=== PATIENT | female | born 1950 | race Caucasian/White ===

== ENCOUNTER → 2016-10-26 | Outpatient (CLI) | payer OTHER ==
--- NOTE | 2016-10-26 14:03 | MM ---
Reason for exam: follow-up at short interval from prior study. Last mammogram was performed 6 months ago. History: Patient is postmenopausal. Took hormonal contraceptives for 5 years beginning at age 22. Physical Findings: Nurse did not find any significant physical abnormalities on exam. MG Diagnostic Mammo LT w CAD CC, MLO, and ML view(s) were taken of the left breast. Prior study comparison: April 28, 2016, left breast US breast workup limited LT. April 21, 2016, bilateral MG 3d screening mammo w/cad. March 31, 2015, bilateral MG screening mammo w CAD. The breast tissue is extremely dense which could obscure a lesion on mammography. The asymmetric density superiorly and posteriorly is unchanged from 04/22/16. Not seen currently on the CC view. Additional 6 month follow up recommended. These results were verbally communicated with the patient and result sheet given to the patient on 10/26/16. ASSESSMENT: Probably benign, BI-RAD 3 RECOMMENDATION: Follow-up diagnostic mammogram of both breasts in 6 months.
== END | disposition home or self-care (01) ==
LOC: RADMAMWWP 13:03
PROVIDERS: ATTEND Family Medicine
DX: R92.8 Other abnormal and inconclusive findings on diagnostic imaging of breast (principal)

== ENCOUNTER → 2016-11-24 | Outpatient (CLI) | payer OTHER ==
--- NOTE | 2016-11-24 12:31 | XR ---
EXAMINATION TYPE: XR chest 2V DATE OF EXAM: 11/24/2016 12:17 PM COMPARISON: September 28, 2013 HISTORY: Shortness of breath TECHNIQUE: Frontal and lateral views of the chest are obtained. FINDINGS: Scattered senescent parenchymal changes noted. Hyperinflation compatible with COPD. No evidence for infiltrate. No evidence for atelectasis. Heart size is stable. Mediastinal structures are stable and grossly unremarkable. No evidence for hilar prominence. Degenerative changes dorsal spine. IMPRESSION: 1. No evidence for acute pulmonary disease.
== END ==
LOC: RADXRMAIN 11:55
DX: R63.4 Abnormal weight loss (principal); Z72.0 Tobacco use
CPT/HCPCS: 71020

== ENCOUNTER → 2017-04-05 | Outpatient (CLI) | payer MEDICARE, OTHER ==
[2017-04-05 15:03] LABS: Blood Urea Nitrogen 13 mg/dL (7-17); Non-African American GFR(MDRD) 50 (>60 ml/min/1.73 sqM)
--- NOTE | 2017-04-05 16:59 | CT ---
EXAMINATION TYPE: CT ChestAbdPelvis w con DATE OF EXAM: 04/05/2017 COMPARISON: Ultrasound 07/02/2015 HISTORY: 67-year-old female complains of abnormal weight loss. TECHNIQUE: Contiguous axial scanning of the chest, abdomen, and pelvis performed with IV Contrast, pa tient injected with 80 mL of Visipaque 320. Delayed images through the kidneys were obtained. Coronal /sagittal reconstructions performed. CT DLP: 1392 mGycm Automated exposure control for dose reduction was used. FINDINGS: CHEST: Calcified 7 mm nodule in the right lobe of the thyroid gland. Heart is normal size with trace pericardial thickening/fluid. Coronary vessel calcifications are pres ent in remarkable for coronary artery disease. Aorta is normal caliber with conventional arch vessel branching anatomy and mild atherosclerotic arch calcifications. There appears to be prominent atelectatic change in the proximal left subclavian art leandra and a severe stenosis here is not excluded. Borderline sized AP window lymph node at 1 cm. Some interstitial scarring in the anterior lung bases. Mild centrilobular emphysema again other scatt ered interstitial scarring in the lungs possibly with some segmental upper lung predominant centrilob ular nodules. No consolidation or pleural effusion. ABDOMEN: Incidental right-sided fatty Bochdalek hernia. Evaluation of the liver shows a subtle 1.6 cm hypodense lesion posterior left hepatic lobe that persi sts on delayed phase. Portal venous system is patent. No biliary ductal dilatation. There appears to be some circumferential wall thickening of the second portion of the duodenum, axial image 76 and cor onal image 30. Adrenal glands and right kidney, spleen, and pancreas show no gross body. There is a 1 cm cyst in the upper pole left kidney. Moderate atherosclerotic calcifications within the abdominal aorta and iliac arteries. No dilated small bowel, free fluid, or free air seen. Moderate stool burden without pericolonic inflammatory change identified Pelvis: Mild circumferential bladder wall thickening. Uterus appears surgically absent. Neither ovary is wade rly identified. No abnormal fluid collection in the pelvis or pelvic lymphadenopathy seen. Bones: Mild degenerative changes at the hips. Additional degenerative changes lower lumbar spine. No osseous destructive process. Multilevel spondylolistheses in the lumbar spine with moderate spinal canal ricardo nosis at L4-L5. IMPRESSION: 1. 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 2. SOME CIRCUMFERENTIAL WALL THICKENING OF THE SECOND PORTION OF THE DUODENUM COULD BE SECONDARY TO M UCOSAL REDUNDANCY. DUODENITIS OR NEOPLASM ARE ADDITIONAL CONSIDERATIONS. CONSIDER DIRECT VISUALIZATIO N OR 3 MONTH FOLLOW-UP EXAM DEPENDING ON CLINICAL ASSESSMENT. 3. A SUBTLE 1.6 CM HYPODENSE LESION IN THE POSTERIOR LEFT LIVER LOBE SEEMS TO CORRESPOND TO AN ECHOGE MADHU LESION SEEN ON 07/02/2015 ULTRASOUND. STABILITY SUGGESTS A BENIGN ETIOLOGY. THREE-MONTH FOLLOW-UP ULTRASOUND RECOMMENDED TO REASSESS. 4. MODERATE STOOL BURDEN. 5. MILD CIRCUMFERENTIAL BLADDER WALL THICKENING; CORRELATE TO EXCLUDE CYSTITIS. 6. AT LEAST MODERATE DEGENERATIVE CHANGES IN THE LUMBAR SPINE.
== END | disposition home or self-care (01) ==
LOC: RADCTMAIN 14:10
PROVIDERS: ATTEND Internal Medicine
DX: J43.2 Centrilobular emphysema (principal); J98.4 Other disorders of lung; R63.4 Abnormal weight loss
CPT/HCPCS: 82565; 84520; 71260; 74177; 36415; Q9967

== ENCOUNTER → 2017-04-14 | Outpatient (CLI) | payer MEDICARE ==
--- NOTE | 2017-04-14 15:34 | US ---
EXAMINATION TYPE: US carotid duplex BILAT DATE OF EXAM: 04/14/2017 COMPARISON: CT chest/abd/pelvis 2016 CLINICAL HISTORY: I77.1 Arterial stenosis; patient stated has weight loss; smoker x 45-50 years EXAM MEASUREMENTS: RIGHT: Peak Systolic Velocity (PSV) cm/sec ----- Right CCA: 72.8 ----- Right ICA: 87.3 ----- Right ECA: 70.5 ICA/CCA ratio: 1.2 RIGHT: End Diastole cm/sec ----- Right CCA: 26.0 ----- Right ICA: 37.0 ----- Right ECA: 11.4 LEFT: Peak Systolic Velocity (PSV) cm/sec ----- Left CCA: 57.9 ----- Left ICA: 108.1 ----- Left ECA: 65.2 ICA/CCA ratio: 1.9 LEFT: End Diastole cm/sec ----- Left CCA: 22.7 ----- Left ICA: 41.2 ----- Left ECA: 14.7 VERTEBRALS (direction of flow): Right Vertebral: Antegrade Left Vertebral: Antegrade Rhythm: Normal Moderate intimal wall changes/calcifications are noted at bilateral carotid bifurcation, but PSV is w nl bilaterally. Incidental finding of calcified right thyroid nodule is noted = 0.6 x 0.7 x 0.6cm. IMPRESSION: 1. Intimal thickening with scattered atheromatous plaques without significant flow-limiting stenosis. Criteria for Assigning % of Stenosis / Diameter reduction (Estimation based on the indirect measurements of the internal carotid artery velocities (ICA PSV). 1. Normal (no stenosis)=ICA PSV < 125 cm/s: ratio < 2.0: ICA EDV<40 cm/s. 2. Less than 50% stenosis=ICA PSV < 125 cm/s: ratio < 2.0: ICA EDV<40 cm/s. 3. 50 to 69% stenosis=ICA PSV of 125 to 230 cm/s: ration 2.0 ? 4.0: ICA EDV 40-100 cm/s. 4. Greater than 70% stenosis to near occlusion= ICA PSV > 230 cm/s: ratio > 4.0: ICA EDV > 100 cm/s. 5. Near occlusion= ICA PSV velocities may be low or undetectable: variable ratio and ICA EDV. 6. Total occlusion=unable to detect flow.
== END | disposition home or self-care (01) ==
LOC: RADUSWWP 10:55
PROVIDERS: ATTEND Family Medicine
DX: I77.89 Other specified disorders of arteries and arterioles (principal)
CPT/HCPCS: 93880

== ENCOUNTER → 2017-04-24 | Outpatient (CLI) | payer MEDICARE ==
--- NOTE | 2017-04-24 10:27 | MM ---
Reason for exam: follow-up at short interval from prior study. Last mammogram was performed 6 months ago. History: Patient is postmenopausal. Took hormonal contraceptives for 5 years beginning at age 22. Physical Findings: Nurse did not find any significant physical abnormalities on exam. MG 3D Diag Mammo W/Cad SHANICE Bilateral CC and MLO view(s) were taken. Prior study comparison: October 26, 2016, left breast MG diagnostic mammo LT w CAD. April 21, 2016, bilateral MG 3d screening mammo w/cad. The breast tissue is extremely dense which could obscure a lesion on mammography. There is no discrete abnormality. These results were verbally communicated with the patient and result sheet given to the patient on 04/24/17. ASSESSMENT: Negative, BI-RAD 1 RECOMMENDATION: Routine screening mammogram of both breasts in 1 year.
== END | disposition home or self-care (01) ==
LOC: RADMAMWWP 09:27
PROVIDERS: ATTEND Family Medicine
DX: R92.8 Other abnormal and inconclusive findings on diagnostic imaging of breast (principal)
CPT/HCPCS: G0204; G0279

== ENCOUNTER 2017-04-25 09:28 | Day surgery (SDC) | payer MEDICARE ==
[2017-04-21 09:40] VITALS: BMI 18.2
[2017-04-25 09:58] VITALS: TEMP 98.7
[2017-04-25] MEDS: LACTATED RINGERS 1,000 ML IV SCH ×2 (10:06→10:12)
[2017-04-25] MEDS ORDERED: PROPOFOL 10 MG/ML 20 ML VIAL IV ONE (10:15)
--- NOTE | 2017-04-25 10:52 | P.PCN ---
Date of Procedure: 04/25/17 Procedure(s) Performed: Procedure: Esophagogastroduodenoscopy and biopsy. Preoperative diagnosis: Abnormal weight loss and abnormal CT of the abdomen. Postoperative diagnosis: 1. Small sliding hiatal hernia with no obvious esophagitis or complicated reflux disease. 2. Mild antral gastritis. 3. Abnormality on CT and the duodenum was not substantiated on this exam and the duodenum showed no obvious abnormalities. 4. Multiple biopsies obtained from the duodenum, antrum and esophagus. Preparation and sedation: Were provided by anesthesia. Brief clinical history: The patient is a 67-year-old female who was evaluated in the office last month because of 30 pound weight loss over the past year. CT of the abdomen showed circumferential thickening of the second portion of the duodenum and direct visualization was suggested. Procedure: With the patient on her left lateral decubitus position and after informed consent and adequate sedation, I passed the Olympus-GIF 160 video upper endoscope through the cricopharyngeus down the esophagus. GE junction was around 40-41 cm from the incisors and there was a small sliding hiatal hernia measuring between 1-2 cm. The esophagus did not show any obvious erosions, ulcers, strictures or Sierra's esophagus. The endoscope was then passed into the stomach which was insufflated with air and inspected in detail including the retroflex view of the cardia. There was some mottling and erythema in the antrum but no ulcers or erosions. Pyloric channel, duodenal bulb, post bulbar area and descending duodenum appeared within normal limits. The abnormality noted on computed tomography scan was not substantiated on this exam and the duodenum appeared within normal limits. Because of her symptoms, I obtained biopsies from the duodenum, antrum and esophagus then the endoscope was withdrawn. The patient tolerated the procedure well. Plan: The patient was reassured. Will await biopsy results. Further plans can be made based on her course and biopsy results. She will follow-up with you as planned and we would keep you updated on her progress.
[2017-04-25 10:56] VITALS: BP 133/78; PULSE 66; RESP 18
== END 2017-04-25 11:38 | disposition home or self-care (01) ==
LOC: ORWHC2ENDO 09:28
DX: K29.50 Unspecified chronic gastritis without bleeding (principal); K20.9 Esophagitis, unspecified; K44.9 Diaphragmatic hernia without obstruction or gangrene; K57.90 Diverticulosis of intestine, part unspecified, without perforation or abscess without bleeding; I10 Essential (primary) hypertension; E78.5 Hyperlipidemia, unspecified; J44.9 Chronic obstructive pulmonary disease, unspecified; F17.200 Nicotine dependence, unspecified, uncomplicated; M41.9 Scoliosis, unspecified; Z79.899 Other long term (current) drug therapy; Z88.7 Allergy status to serum and vaccine
CPT/HCPCS: 88305; 88342; 43239; J2704

== ENCOUNTER → 2017-08-10 | Outpatient (CLI) | payer MEDICARE ==
--- NOTE | 2017-08-10 15:11 | US ---
EXAMINATION TYPE: US thyroid st tissue head/neck DATE OF EXAM: 08/10/2017 COMPARISON: Carotid ultrasound 04/14/2017 CLINICAL HISTORY: 67-year-old female E04.1 THYROID NODULE. Right thyroid nodule seen on previous ultr asound and CT TECHNIQUE: Multiple sonographic images of the thyroid gland are obtained. FINDINGS: GLAND SIZE: Right Lobe: 3.8 x 1.5 x 1.5 cm Overall Parenchyma: homogenous Left Lobe: 4.2 x 1.4 x 1.5 cm Overall Parenchyma: homogeneous Isthmus Thickness: 0.2 cm NODULES RIGHT: # of nodules measured on right: 1 1. 0.6 X 0.6 x 0.6 cm round calcified nodule at the midpole. Prior size: 0.6 x 0.7 x 0.6 cm by previous carotid ultrasound LEFT: # of nodules measured on left: 0 ISTHMUS: # of nodules measured in the isthmus: 0 Bilateral neck scanned, no evidence of lymphadenopathy. IMPRESSION: Stable solitary round, calcified nodule at the right midpole measuring 6 mm.
--- NOTE | 2017-08-10 15:32 | US ---
EXAMINATION TYPE: US abdomen comp/pelvis limited DATE OF EXAM: 08/10/2017 COMPARISON: CT 04/05/2017 and ultrasound 07/02/2015 CLINICAL HISTORY: 67-year-old female K78.9,R79.89 LIVER NODULES,ELEV CREAT LEVELS. Weight loss, eleva kalani creatinine levels, history of liver lesions, cholecystectomy TECHNIQUE: Multiple sonographic images of the abdomen and bladder are obtained. FINDINGS: Liver Length: 15.5 cm Gallbladder: surgically absent CBD: 0.7 cm Spleen: 8.7 cm Right Kidney: 10.5 x 4.2 x 5.1 cm Left Kidney: 10.0 x 5.3 x 4.8 cm Pancreas: visualized portions wnl, tail obscured by overlying midline bowel gas Liver: 2.2 x 1.9 x 1.9 cm hyperechoic lesion left lobe (versus 2.0 x 1.8 x 1.4 cm on 07/02/2015), 0. 8 x 0.8 x 0.9cm hyperechoic lesion right lobe (versus 7 x 8 x 8 mm on 07/02/2015) Gallbladder: surgically absent CBD: wnl Spleen: visualized portions wnl, limited by overlying bowel gas Right Kidney extrarenal pelvis. No calyceal dilatation to suggest hydronephrosis. Left Kidney: 1.6 x 1.1 x 1.1cm hypoechoic area superior pole. There is suggestion of some posterior through transmission. A cyst is suspected. Inferior pole limited by overlying bowel gas Upper IVC: wnl Abd Aorta: atherosclerotic change, distal portion limited by overlying midline bowel gas Bladder: wnl Bilateral Jets Seen yes IMPRESSION: A 1.6 cm hypoechoic lesion upper pole left kidney suspected to represent a cyst with internal echoes either artifactual or representing debris. However, as a cyst in the left upper pole only measured 1 cm on the 04/05/2017 CT, six-month follow-up ultrasound is recommended to reassess. 2 echogenic lesions redemonstrated in the liver. These have only enlarged by a few millimeters as com pared to 07/02/2015, largest measuring 2.2 cm. This suggests a benign etiology. As this did not have the characteristic appearance of a hemangioma on the prior CT, a 12 month follow-up ultrasound can de termine continued stability. Alternatively, liver MRI may provide more definitive characterization. Extensive atherosclerotic calcifications within the abdominal aorta.
== END | disposition home or self-care (01) ==
LOC: RADUSWWP 14:04
PROVIDERS: ATTEND Family Medicine
DX: E04.1 Nontoxic single thyroid nodule (principal); N28.9 Disorder of kidney and ureter, unspecified; K76.9 Liver disease, unspecified; I70.0 Atherosclerosis of aorta
CPT/HCPCS: 76536; 76700; 76857

== ENCOUNTER → 2018-02-19 | Outpatient (CLI) | payer MEDICARE ==
--- NOTE | 2018-02-20 10:09 | CT ---
EXAMINATION TYPE: CT abdomen wo/w con DATE OF EXAM: 02/19/2018 HISTORY: Patient complains of RUQ pain CT DLP: 393.6mGycm Automated Exposure Control for Dose Reduction was Utilized. CONTRAST: CT scan of the abdomen is performed without and with IV Contrast, patient injected with 80 mL of Isov ue 370. COMPARISON: None. FINDINGS: LUNG BASES: Mild emphysematous changes are again appreciated at the lung bases. No new focal consolid ation. LIVER/GB:. There is a gallbladder solitary approximately 1.4 cm left hepatic lobe lesion is seen in t he prior of 04/05/2017. This measured approximately 1.6 cm on that examination. This is unchanged give n differences in slice selection. Given its unchanged in size and hyperechogenicity on ultrasound a b enign etiology is favored however continued surveillance is recommended. The gallbladder is surgicall y absent. There is very minimal intrahepatic biliary ductal dilatation, possibly postsurgical as this was retrospectively minimally present on the prior exam of 04/05/2017. PANCREAS: There is no pancreatic ductal dilatation. Pancreas enhances homogeneously. SPLEEN: A small splenule is seen adjacent to the unremarkable iroquois spleen. ADRENALS: There is slight bilateral thickening of the adrenal glands however they maintain their adre niform shape and are similar to the prior, likely related to mild adrenal gland hyperplasia. KIDNEYS: The unenhanced images demonstrate no evidence of nephrolithiasis. There is a similar appeari ng left upper poler 9 mm lesion, probable cortical cyst. There is also similar appearance of a right lateral cortical 6 mm too small to accurately characterize renal lesion. Given the stability this als o likely relates to a cyst. No hydronephrosis. Left extrarenal pelvis is again identified. BOWEL: The previously seen circumferential bowel wall thickening of the duodenum resolved in the inte rim. No large or small bowel dilatation. LYMPH NODES: No greater than 1cm abdominal or pelvic lymph nodes are appreciated. OSSEOUS STRUCTURES: Osseous structures appear intact minimal degenerative changes of the spine are no kalani with more pronounced degenerative change and L2-L3. Mild retrolisthesis of L2 on L3 and grade 1 a nterolisthesis of L4 on L5 are seen. OTHER: Moderate calcific atheromatous changes are seen of the abdominal aorta and its branches. Mild subcutaneous edema is noted throughout. IMPRESSION: 1. Solitary hepatic lesion seen on the prior CT of 04/05/2017 is overall stable and favored to be angelica gn in etiology. This was hyperechoic on the prior ultrasound dated 07/02/2015 and 08/10/2017. If there is further desire for more definitive characterization enhanced abdominal MR could be performed. The known second hepatic lesion seen on ultrasound is not readily visible on CT, therefore this may rela te to focal nodular hyperplasia. 2. Very minimal intrahepatic biliary ductal dilatation, possibly postsurgical and overall similar to the prior exam of 2017. 3. Resolution of the previously seen circumferential descending duodenal thickening. Moderate colonic stool burden remains.
== END | disposition home or self-care (01) ==
LOC: RADCTMAIN 15:02
DX: K76.9 Liver disease, unspecified (principal)
CPT/HCPCS: 82565; 84520; 74170; 36415; Q9967

== ENCOUNTER → 2018-05-23 | Outpatient (CLI) | payer MEDICARE ==
--- NOTE | 2018-05-23 09:04 | US ---
EXAMINATION TYPE: US thyroid st tissue head/neck DATE OF EXAM: 05/23/2018 COMPARISON: US 08/10/2017 CLINICAL HISTORY: R22.1 Swelling/Mass Lump of neck. No abnormality visualized at the patient's area of palpable lump IMPRESSION: No distinct abnormality seen. Correlate clinically.
== END ==
LOC: RADUSWWP 08:16
PROVIDERS: ATTEND Family Medicine
DX: R22.1 Localized swelling, mass and lump, neck (principal)
CPT/HCPCS: 76536

== ENCOUNTER → 2018-06-25 | Outpatient (CLI) | payer MEDICARE ==
--- NOTE | 2018-06-26 13:14 | MM ---
Reason for exam: screening (asymptomatic). Last mammogram was performed 1 year and 2 months ago. History: Patient is postmenopausal. Took hormonal contraceptives for 5 years beginning at age 22. Physical Findings: A clinical breast exam by your physician is recommended on an annual basis and results should be correlated with mammographic findings. MG 3D Screening Mammo W/Cad Bilateral CC and MLO view(s) were taken. Prior study comparison: April 24, 2017, bilateral MG 3d diag mammo w/cad SHANICE. October 26, 2016, left breast MG diagnostic mammo LT w CAD. The breast tissue is heterogeneously dense. This may lower the sensitivity of mammography. No significant changes when compared with prior studies. ASSESSMENT: Benign, BI-RAD 2 RECOMMENDATION: Routine screening mammogram of both breasts in 1 year.
== END ==
LOC: RADMAMWWP 14:47
PROVIDERS: ATTEND Family Medicine
DX: Z12.31 Encounter for screening mammogram for malignant neoplasm of breast (principal)
CPT/HCPCS: 77063; 77067

== ENCOUNTER → 2018-06-27 | Outpatient (CLI) | payer MEDICARE ==
--- NOTE | 2018-06-27 10:16 | US ---
EXAMINATION TYPE: US carotid duplex BILAT DATE OF EXAM: 06/27/2018 COMPARISON: US 04/14/17 CLINICAL HISTORY: I65.22 stenosis of left carotid. Patient feels lump on left neck. EXAM MEASUREMENTS: RIGHT: Peak Systolic Velocity (PSV) cm/sec ----- Right CCA: 100.5 ----- Right ICA: 133.5 ----- Right ECA: 131.9 ICA/CCA ratio: 1.3 RIGHT: End Diastole cm/sec ----- Right CCA: 36.1 ----- Right ICA: 49.5 ----- Right ECA: 26.8 LEFT: Peak Systolic Velocity (PSV) cm/sec ----- Left CCA: 104.4 ----- Left ICA: 135.3 ----- Left ECA: 96.4 ICA/CCA ratio: 1.3 LEFT: End Diastole cm/sec ----- Left CCA: 39.8 ----- Left ICA: 50.5 ----- Left ECA: 25.2 VERTEBRALS (direction of flow): Right Vertebral: Antegrade Left Vertebral: Antegrade Rhythm: Normal IMPRESSION: Atherosclerotic changes noted. Calcified plaque bilat bulb, L>R No significant stenosis s een Criteria for Assigning % of Stenosis / Diameter reduction (Estimation based on the indirect measurements of the internal carotid artery velocities (ICA PSV). 1. Normal (no stenosis)=ICA PSV < 125 cm/s: ratio < 2.0: ICA EDV<40 cm/s. 2. Less than 50% stenosis=ICA PSV < 125 cm/s: ratio < 2.0: ICA EDV<40 cm/s. 3. 50 to 69% stenosis=ICA PSV of 125 to 230 cm/s: ration 2.0 ? 4.0: ICA EDV 40-100 cm/s. 4. Greater than 70% stenosis to near occlusion= ICA PSV > 230 cm/s: ratio > 4.0: ICA EDV > 100 cm/s. 5. Near occlusion= ICA PSV velocities may be low or undetectable: variable ratio and ICA EDV. 6. Total occlusion=unable to detect flow.
--- NOTE | 2018-06-27 10:38 | CT ---
EXAMINATION TYPE: CT soft tissue neck w con DATE OF EXAM: 06/27/2018 COMPARISON: None HISTORY: 68-year-old female localized soft tissue swelling, lump along the left side of the neck TECHNIQUE: Contiguous axial scanning of the soft tissues of the neck performed with IV Contrast, irving ent injected with 80 mL of Isovue M300. Coronal/sagittal reconstructions performed. CT DLP: 299.1 mGycm Automated exposure control for dose reduction was used. FINDINGS: Mildly enlarged mediastinal lymph nodes measuring up to 1.2 cm in the AP window. There is a severe stenosis of the proximal left subclavian artery, reference axial image 26. Round peripherally calcified 6 mm nodule in the right lobe of the thyroid gland. Visualized intracranial structures, orbits and globes, paranasal sinuses, and mastoid air cells appea r clear. There is a cystic lesion along the right paramedian posterior nasopharynx mucosal space measuring 6 m m suggestive of a mucosal retention cyst, axial image 78. Oropharynx is clear. Slight asymmetric thickening along the left aryepiglottic fold suspected to be positional. Refer to a xial image 52. Glottic and subglottic structures as well as the tracheal column appear clear. Visualized upper lungs show subtle centrilobular nodularity and mild diffuse bronchial wall thickenin g. Findings may reflect respiratory bronchiolitis if the patient is a smoker. Submandibular glands is satisfactory. Parotid glands mildly atrophic. There is a palpable marker along the left lateral neck. Directly underlying the palpable marker in th e left external jugular vein coursing over the sternocleidomastoid. Scattered nonenlarged cervical lymph nodes are present measuring up to 8 mm short axis. No suspicious mass or lymphadenopathy identified. Moderate atherosclerotic calcifications in the left bifurcation and mild at the right bifurcation wit hout a significant stenosis seen. Bones: Mild/moderate spondylotic change mid to lower cervical spine with grade 1 anterolisthesis at C 5-C6. IMPRESSION: 1. PALPABLE MARKER ALONG THE LEFT LATERAL NECK. THE LEFT EXTERNAL JUGULAR VEIN IS PRESENT DIRECTLY UN ARIN THE PALPABLE MARKER COURSING OVER THE STERNOCLEIDOMASTOID MUSCLE. NO SUSPICIOUS MASS OR LYMPHADEN OPATHY IS SEEN HERE. 2. SLIGHT ASYMMETRIC NODULAR THICKENING ALONG THE LEFT ARYEPIGLOTTIC FOLD MAY BE POSITIONAL. CORRELAT E FOR ANY RISK FACTORS FOR HEAD AND NECK NEOPLASM. DIRECT VISUALIZATION INDICATED. 3. INCIDENTAL 6 MM MUCOSAL RETENTION CYST IN THE POSTERIOR RIGHT NASOPHARYNX. 4. SUBTLE CENTRILOBULAR NODULARITY IN THE VISUALIZED UPPER LUNGS. THIS MAY REFLECT RESPIRATORY BRONCH IOLITIS IF THE PATIENT IS A SMOKER. 5. SEVERE FOCAL STENOSIS PROXIMAL LEFT SUBCLAVIAN ARTERY. 6. MILDLY ENLARGED AP WINDOW LYMPH NODE MEASURES 1.2 CM. RECOMMEND FOLLOW-UP CONTRAST ENHANCED CT [facility] TO SURVEY THE LUNGS AND MEDIASTINUM.
== END ==
LOC: RADUSMAIN 09:00
PROVIDERS: ATTEND Internal Medicine
DX: I65.22 Occlusion and stenosis of left carotid artery (principal); R22.1 Localized swelling, mass and lump, neck
CPT/HCPCS: 82565; 84520; 93880; 70491; 36415; Q9967

== ENCOUNTER → 2019-02-07 | Outpatient (CLI) | payer MEDICARE ==
[2019-02-07 18:56] LABS: T4, Free (Free Thyroxine) 1.1 ng/dL (0.80-1.80)
== END | disposition home or self-care (01) ==
LOC: LABWHC1 11:44
PROVIDERS: ATTEND Internal Medicine Interventional Cardiology
DX: E03.9 Hypothyroidism, unspecified (principal)
CPT/HCPCS: 36415; 84439; 84443; 84481

== ENCOUNTER 2019-06-25 16:44 | Emergency (ER) | payer MEDICARE ==
[2019-06-25 16:48] VITALS: RESP 18
[2019-06-25 16:57] VITALS: TEMP 97.3
[2019-06-25] MEDS ORDERED: IPRATROPIUM-ALBUTEROL 3 ML NEB INHALATION STA (17:06)
[2019-06-25] MEDS ORDERED: predniSONE 50 MG TAB PO STA (17:07)
--- NOTE | 2019-06-25 17:09 | ED ---
General Adult HPI - General Chief complaint: Shortness of Breath Stated complaint: chest congestion Time Seen by Provider: 06/25/19 16:45 Source: patient, RN notes reviewed, old records reviewed Mode of arrival: ambulatory Limitations: no limitations - History of Present Illness Initial comments: This is a 69-year-old female who has a past medical history significant for COPD and she continues to smoke. Patient states on night she started developing a cough and the cough is persistent and continues today. Patient states she is also coughing up a lot of green junk. Patient states she's also been short of breath more than normal since that time per patient denies any chest pain or palpitations. Patient denies any fever chills. Patient states she takes her DuoNeb at home and it improves her symptoms for a little while and then they returned. Patient denies any abdominal pain. Patient denies any lightheadedness or dizziness. Patient denies any swelling to the legs patient denies any calf tenderness. Patient states currently in bed she feels pretty good but if she gets up and moves around she feels like she is wheezing. - Related Data Home Medications Medication Instructions Recorded Confirmed Cholecalciferol [Vitamin D3] 5,000 unit PO DAILY 08/06/15 04/25/17 Ipratropium Nebulized [Atrovent 0.5 mg INHALATION Q6HR 08/06/15 04/25/17 Nebulized] Losartan [Cozaar] 12.5 mg PO QAM 08/06/15 04/25/17 Pyridoxine [Vitamin B-6] 100 mg PO HS 08/06/15 04/25/17 Verapamil HCl [Verapamil ER] 240 mg PO HS 08/06/15 04/25/17 Acetaminophen [Tylenol Extra 500 mg PO DIRECTED PRN 04/21/17 04/25/17 Strength] Albuterol Inhaler [Ventolin Hfa 1 puff INHALATION Q6HR PRN 04/21/17 04/25/17 Inhaler] Cyanocobalamin [Vitamin B-12] 500 mcg PO DAILY 04/21/17 04/25/17 Ezetimibe [Zetia] 10 mg PO HS 04/21/17 04/25/17 Famotidine [Pepcid] 20 mg PO BID 04/21/17 04/25/17 Ibuprofen [Motrin] 200 - 400 mg PO Q6HR PRN 04/21/17 04/25/17 Magnesium Oxide 400 mg PO HS 04/21/17 04/25/17 Previous Rx's Medication Instructions Recorded Azithromycin [Zithromax Tri-Rk] 500 mg PO DAILY #3 tab 06/25/19 predniSONE 40 mg PO DAILY #8 tab 06/25/19 Allergies Allergy/AdvReac Type Severity Reaction Status Date / Time thimerosal Allergy Abdominal Verified 06/25/19 16:48 Pain,fever,itchy & draining eyes Review of Systems ROS Statement: Those systems with pertinent positive or pertinent negative responses have been documented in the HPI. ROS Other: All systems not noted in ROS Statement are negative. Past Medical History Past Medical History: COPD, Eye Disorder, Hypertension Additional Past Medical History / Comment(s): DAILY DIARRHEA, HX IRREG HR, SHANICE CATARACTS,SEPTIC WITH GALL BLADDER, PLEURAL EFFUSION,ENLARGED LIVER,KIDNEY INFECTION,ARTI [place] History of Any Multi-Drug Resistant Organisms: None Reported Past Surgical History: Appendectomy, Cholecystectomy, Hysterectomy, Orthopedic Surgery, Tonsillectomy Additional Past Surgical History / Comment(s): COLONOSCOPY Past Anesthesia/Blood Transfusion Reactions: Motion Sickness Additional Past Anesthesia/Blood Transfusion Reaction / Comment(s): NO PROBLEMS WITH PRIOR BLOOD TRANSFUSION Past Psychological History: No Psychological Hx Reported Smoking Status: Current every day smoker Past Alcohol Use History: None Reported Past Drug Use History: None Reported - Past Family History Mother Family Medical History: Dementia, Vascular Disorder Father Family Medical History: Hypertension Additional Family Medical History / Comment(s): PARKINSON,GOUT Sister(s) Family Medical History: Asthma, COPD Additional Family Medical History / Comment(s): BRAIN TUMOR,EMPHYSEMA,MS Brother(s) Family Medical History: COPD, Hypertension Additional Family Medical History / Comment(s): BROOKLYNN SALEEM General Exam - General Exam Comments Initial Comments: GENERAL: Patient is well-developed and well-nourished. Patient is nontoxic and well- hydrated and is in mild distress. ENT: Neck is soft and supple. No significant lymphadenopathy is noted. Oropharynx is clear. Moist mucous membranes. Neck has full range of motion without eliciting any pain. EYES: The sclera were anicteric and conjunctiva were pink and moist. Extraocular movements were intact and pupils were equal round and reactive to light. Eyelids were unremarkable. PULMONARY: Patient has occasional expiratory wheezes. CARDIOVASCULAR: There is a regular rate and rhythm without any murmurs gallops or rubs. ABDOMEN: Soft and nontender with normal bowel sounds. No palpable organomegaly was noted. There is no palpable pulsatile mass. SKIN: Skin is clear with no lesions or rashes and otherwise unremarkable. NEUROLOGIC: Patient is alert and oriented x3. Cranial nerves II through XII are grossly intact. Motor and sensory are also intact. Normal speech, volume and content. Symmetrical smile. MUSCULOSKELETAL: Normal extremities with adequate strength and full range of motion. LYMPHATICS: No significant lymphadenopathy is noted PSYCHIATRIC: Normal psychiatric evaluation. Limitations: no limitations Course Vital Signs 06/25/19 06/25/19 06/25/19 16:45 16:55 17:31 Temperature 97.8 F 97.3 F L Pulse Rate 80 78 68 Respiratory 18 18 18 Rate Blood Pressure 132/68 148/71 O2 Sat by Pulse 99 98 Oximetry 06/25/19 06/25/19 17:40 18:00 Temperature Pulse Rate 70 77 Respiratory 18 18 Rate Blood Pressure 111/68 O2 Sat by Pulse 95 Oximetry Medical Decision Making - Medical Decision Making Chest x-ray shows no acute abnormality I started the patient on Rocephin in the emergency department and the patient will be sent home on Zithromax. Patient also be given steroids. After the patient got her breathing treatment I listened to her lungs and she sounded much better and she actually felt better. Disposition Clinical Impression: COPD exacerbation, Bronchitis Disposition: HOME SELF-CARE Instructions (If sedation given, give patient instructions): Acute Bronchitis (ED) Prescriptions: predniSONE 40 mg PO DAILY #8 tab Azithromycin [Zithromax Tri-Rk] 500 mg PO DAILY #3 tab Is patient prescribed a controlled substance at d/c from ED?: No Referrals: Carol Townsend MD [Primary Care Provider] - 1-2 days
--- NOTE | 2019-06-25 17:42 | XR ---
EXAMINATION TYPE: XR chest 2V DATE OF EXAM: 06/25/2019 COMPARISON: March 22, 2017 HISTORY: Cough TECHNIQUE: Frontal and lateral views of the chest are obtained. FINDINGS: Heart and mediastinum are normal. Lungs are clear of infiltrate. There is mild pulmonary h yperinflation. Thoracic aorta is atheromatous. There are no hilar masses. Bony thorax is intact. IMPRESSION: No active cardiopulmonary disease. There is probably some COPD. No significant change.
[2019-06-25 18:01] VITALS: BP 111/68; PULSE 77
[2019-06-25] MEDS ORDERED: cefTRIAXone 1,000 MG VIAL (IM USE) IM STA (18:16)
== END 2019-06-25 18:39 | disposition home or self-care (01) ==
LOC: EC 16:44
DX: J44.1 Chronic obstructive pulmonary disease with (acute) exacerbation (principal); J40 Bronchitis, not specified as acute or chronic; I10 Essential (primary) hypertension; F17.200 Nicotine dependence, unspecified, uncomplicated; Z79.51 Long term (current) use of inhaled steroids; Z79.899 Other long term (current) drug therapy; Z88.4 Allergy status to anesthetic agent; Z83.6 Family history of other diseases of the respiratory system
CPT/HCPCS: 71046; 94640; 96372; 99285

== ENCOUNTER → 2019-08-26 | Outpatient (CLI) | payer MEDICARE ==
[2019-08-26 20:59] LABS: African American GFR (CKD) 60.2 (60.0-200.0); Anion Gap 8.6 mmol/L (4.00-12.00); BUN/Creat Ratio 18.18 Ratio (12.00-20.00); Calcium 10.2 mg/dL (8.7-10.3); Carbon Dioxide 26.4 mmol/L (21.6-31.8); Magnesium 2.6 mg/dL (1.5-2.4); Non-African American GFR(CKD) 51.9 (60.0-200.0); Potassium 4.8 mmol/L (3.5-5.5)
== END | disposition home or self-care (01) ==
LOC: LABWHC1 12:09
PROVIDERS: ATTEND Nurse Practitioner
DX: I10 Essential (primary) hypertension (principal)
CPT/HCPCS: 36415; 80048; 83735

== ENCOUNTER → 2020-02-12 | Outpatient (CLI) | payer MEDICARE ==
--- NOTE | 2020-02-12 11:28 | FL ---
EXAMINATION TYPE: FL barium swallow w video DATE OF EXAM: 02/12/2020 MODIFIED SWALLOW / DEGLUTITION STUDY CLINICAL HISTORY: Dysphagia. TECHNIQUE: Deglutition study is performed utilizing thin liquid barium, honey and nectar thick liqui d barium, barium thick applesauce, and barium coated cracker. 1 minute and 7 seconds of fluoroscopy p rovided. No images submitted COMPARISON: None. FINDINGS: The oral and pharyngeal phases show satisfactory initiation and propagation with all modali ties tested. Mild delay in oral clearance. Normal mastication is seen with solid modalities tested. There is no evidence of penetration or aspiration with any modality tested. Mild vallecular pooling. Prominent cricopharyngeal muscle noted. IMPRESSION: 1. No evidence of aspiration or penetration.
== END | disposition home or self-care (01) ==
LOC: RADFLMAIN 10:46
PROVIDERS: ATTEND Otolaryngology
DX: R13.10 Dysphagia, unspecified (principal)
CPT/HCPCS: 74230

== ENCOUNTER → 2020-02-27 | Outpatient (CLI) | payer MEDICARE ==
--- NOTE | 2020-02-27 11:42 | FL ---
EXAMINATION TYPE: FL barium swallow DATE OF EXAM: 02/27/2020 CLINICAL HISTORY: Dysphagia. TECHNIQUE: A double contrast esophagram is performed utilizing air and barium. A total of 42 second s of fluoroscopic time was utilized during procedure. 39 spot images saved to PACS. COMPARISON: None FINDINGS: The esophagus shows some mild to moderate underlying dysmotility with some abnormal seconda ry tertiary contractions and poor emptying particularly when patient drank inlaying down prone positi on. No evidence of fixed hiatal hernia or stricture noted. There is reflux from the distal to proxim al and mid esophagus identified during performance of study. IMPRESSION: Mild to moderate underlying esophageal dysmotility and esophageal reflux.
== END | disposition home or self-care (01) ==
LOC: RADUSWWP 10:51
PROVIDERS: ATTEND Otolaryngology
DX: K21.9 Gastro-esophageal reflux disease without esophagitis (principal); K22.4 Dyskinesia of esophagus; Z88.8 Allergy status to other drugs, medicaments and biological substances; Z91.048 Other nonmedicinal substance allergy status
CPT/HCPCS: 74220

== ENCOUNTER → 2020-03-20 | Outpatient (CLI) | payer MEDICARE ==
[2020-03-20 20:09] LABS: African American GFR (CKD) 60.2 (60.0-200.0); Anion Gap 3.1 mmol/L (4.00-12.00); BUN/Creat Ratio 16.36 Ratio (12.00-20.00); Calcium 9.9 mg/dL (8.7-10.3); Carbon Dioxide 26.9 mmol/L (21.6-31.8); Magnesium 2.1 mg/dL (1.5-2.4); Non-African American GFR(CKD) 51.9 (60.0-200.0); Potassium 5.1 mmol/L (3.5-5.5)
== END | disposition home or self-care (01) ==
LOC: LABWHC1 11:23
PROVIDERS: ATTEND Nurse Practitioner
DX: I10 Essential (primary) hypertension (principal)
CPT/HCPCS: 36415; 80048; 83735

== ENCOUNTER 2020-04-13 07:49 | Day surgery (SDC) | payer MEDICARE ==
[2020-04-10 13:30] VITALS: BMI 20.5
[~2020-04-13 07:49] MED LIST: LACTATED RINGERS 1,000 ML IV SCH
[2020-04-13 08:21] VITALS: RESP 16; TEMP 97.7
[2020-04-13] MEDS ORDERED: LIDOCAINE 1% (10MG/ML) FOR IV START INTRADERMA ONE (08:37)
[2020-04-13] MEDS ORDERED: PROPOFOL 10 MG/ML 20 ML VIAL IV ONE (08:41)
--- NOTE | 2020-04-13 09:05 | P.PCN ---
Date of Procedure: 04/13/20 Description of Procedure: BRIEF HISTORY: Patient is a 70-year-old female presenting for outpatient EGD for evaluation of dysphagia. Patient was seen in the hospital complaining of intermittent dysphagia over the past 6 months. Both solids and liquids getting stuck in the midesophagus with regurgitation. She did have a laryngoscope which was negative and a barium swallow in February which demonstrated mild to moderate esophageal dysmotility and esophageal reflux. Patient was switched to PPI therapy daily, previously taking Pepcid which she felt helped. PROCEDURE PERFORMED: Esophagogastroduodenoscopy with biopsy. PREOPERATIVE DIAGNOSIS: Esophageal dysphagia, dysphagia, GERD. ESTIMATED BLOOD LOSS: Minimal. IV sedation per anesthesia. PROCEDURE: After informed consent was obtained, the patient was brought into the endoscopy unit. IV sedation was administered by Anesthesia under continuous monitoring. Initially the Olympus GIF-190 video endoscope was inserted into the mouth. Esophagus intubated without any difficulty. It was gradually advanced into the stomach and duodenum and carefully examined. The bulb and the second part of the duodenum appeared normal, with biopsies taken. The scope at this time was withdrawn to the stomach, adequately insufflated with air, and upon careful examination, mucosa of the antrum, body, cardia and the fundus appeared normal, except for some mild punctate erythema in the antrum and body suggestive of mild gastritis with biopsies taken. The scope was then withdrawn into the esophagus. The GE junction was located at 36 cm from the incisors, with biopsies taken. A 1 cm hiatal hernia was noted. Mid esophageal biopsies taken to rule out EOE. The esophagus appeared normal. There were no erosions or ulcerations seen and the patient tolerated the procedure well. IMPRESSION: 1. Mild gastritis. 2. Biopsies of the duodenum, antrum and body, GE junction and mid esophagus. RECOMMENDATIONS: The findings of this examination were discussed with the patient. Okay to resume diet. Okay to resume medication. Would recommend patient continue trial of omeprazole daily. Follow-up in GI clinic as scheduled.
[2020-04-13 09:10] VITALS: PULSE 67
[2020-04-13 09:21] VITALS: BP 127/67
== END 2020-04-13 09:47 | disposition home or self-care (01) ==
LOC: ORWHC2ENDO 07:49
PROVIDERS: ATTEND Internal Medicine
DX: K29.50 Unspecified chronic gastritis without bleeding (principal); K21.9 Gastro-esophageal reflux disease without esophagitis; I10 Essential (primary) hypertension; E78.5 Hyperlipidemia, unspecified; J44.9 Chronic obstructive pulmonary disease, unspecified; Z88.8 Allergy status to other drugs, medicaments and biological substances; Z79.82 Long term (current) use of aspirin; Z79.51 Long term (current) use of inhaled steroids; Z79.899 Other long term (current) drug therapy; Z90.710 Acquired absence of both cervix and uterus; Z90.49 Acquired absence of other specified parts of digestive tract; Z90.89 Acquired absence of other organs; Z98.890 Other specified postprocedural states
CPT/HCPCS: 88305; 43239; J2704

== ENCOUNTER 2020-05-05 11:29 | Inpatient (IN) | payer MEDICARE ==
[2020-05-05] MEDS ORDERED: SODIUM CHLORIDE 0.9% 1,000 ML IV STA (11:53)
[2020-05-05] MEDS ORDERED: ONDANSETRON 4 MG/2 ML VIAL IVP STA (12:05)
[2020-05-05] MEDS ORDERED: HYDROmorphone 0.5 MG/0.5 ML SYRINGE IVP STA (12:05)
[2020-05-05 12:10] LABS: Basophils # (A) 0.1 k/uL (0-0.2); Basophils % (A) 1 %; Eosinophils # (A) 0.2 k/uL (0-0.7); Eosinophils % (A) 2 %; HCT 48.1 % (34.0-46.0); HGB 15.5 gm/dL (11.4-16.0); Lymphocytes % (A) 7 %; MCH 31.2 pg (25.0-35.0); MCHC 32.2 g/dL (31.0-37.0); MCV 96.9 fL (80.0-100.0); Mean Platelet Volume 6.3; Monocytes # (A) 0.6 k/uL (0-1.0); Monocytes % (A) 4 %; Neutrophils % (A) 86 %; Platelet Count 370 k/uL (150-450); RBC 4.97 m/uL (3.80-5.40); RDW 13.3 % (11.5-15.5); WBC 15.1 k/uL (3.8-10.6)
[2020-05-05 12:18] LABS: Albumin 4.8 g/dL (3.5-5.0); Calcium 11.1 mg/dL (8.4-10.2); Potassium 4.7 mmol/L (3.5-5.1); Total Bilirubin 0.6 mg/dL (0.2-1.3); Total Protein 7.8 g/dL (6.3-8.2)
[2020-05-05 13:19] LABS: Amorphous Sediment,Urine Moderate /hpf; Appearance,Urine Cloudy (Clear); Bilirubin,Urine Negative (Negative); Blood,Urine Negative (Negative); Color,Urine Yellow; Glucose,Urine (UA) Negative (Negative); Ketones,Urine Negative (Negative); Leukocyte Esterase,Urine Negative (Negative); Mucus,Urine Rare /hpf; Nitrite,Urine Negative (Negative); PH, Urine 7.5 (5.0-8.0); Protein,Urine Trace (Negative); RBC,Urine 2 /hpf (0-5); Specific Gravity,Urine 1.013 (1.001-1.035); Squamous Epithelial Cell,Urine 8 /hpf (0-4); Urobilinogen,Urine <2.0 mg/dL (<2.0); WBC,Urine 4 /hpf (0-5)
--- NOTE | 2020-05-05 13:35 | ED ---
General Adult HPI - General Source: patient, RN notes reviewed Mode of arrival: wheelchair Limitations: physical limitation <Hermes Fisher - Last Filed: 05/05/20 14:26> <Lei Luna - Last Filed: 05/05/20 15:32> - General Chief complaint: Abdominal Pain Stated complaint: Abd Pain, NVD Time Seen by Provider: 05/05/20 11:53 - History of Present Illness Initial comments: 62-year-old female with a past medical history of COPD, GERD, hyperlipidemia, hypertension presents to the emergency room for a chief complaint of abdominal pain. Patient states she has had generalized abdominal pain worsen the upper abdomen for the past 12 hours. She has had associated nausea vomiting with this. She denies diarrhea. Patient has had appendectomy, cholecystectomy, hysterectomy in the past. Patient denies fevers or chills. Denies chest pain or shortness of breath.Patient has no other complaints at this time including shortness of breath, chest pain, nausea or vomiting, headache, or visual changes. (Hermes Fisher) - Related Data Home Medications Medication Instructions Recorded Confirmed Cholecalciferol [Vitamin D3] 5,000 unit PO DAILY 08/06/15 05/05/20 Losartan [Cozaar] 12.5 mg PO QAM 08/06/15 05/05/20 Pyridoxine [Vitamin B-6] 100 mg PO BID 08/06/15 05/05/20 Cyanocobalamin [Vitamin B-12] 1,000 mcg PO DAILY 04/21/17 05/05/20 Ezetimibe [Zetia] 10 mg PO HS 04/21/17 05/05/20 Famotidine [Pepcid] 20 mg PO BID 04/21/17 05/05/20 Ibuprofen [Motrin] 400 mg PO Q6HR PRN 04/21/17 05/05/20 Acetaminophen [Tylenol Arthritis] 650 mg PO Q6HR PRN 04/10/20 05/05/20 Aspirin [Adult Low Dose Aspirin EC] 81 mg PO DAILY 04/10/20 05/05/20 Budesonide-Formot 160-4.5 Mcg 2 puff INHALATION BID 04/10/20 05/05/20 [Symbicort 160-4.5 Mcg Inhaler] Hydrochlorothiazide 12.5 mg PO QAM 04/10/20 05/05/20 [hydroCHLOROthiazide] Magnesium 250 mg PO BID 04/10/20 05/05/20 Melatonin 10 mg PO HS 04/10/20 05/05/20 Metoprolol Tartrate [Lopressor] 25 mg PO BID 04/10/20 05/05/20 Montelukast [Singulair] 10 mg PO HS 04/10/20 05/05/20 Vitamin A Tab 2,400 mcg PO DAILY 04/10/20 05/05/20 diphenhydrAMINE [Benadryl] 25 mg PO HS PRN 04/10/20 05/05/20 Albuterol Sulfate [Albuterol 1 puff PO RT-Q6H PRN 05/05/20 05/05/20 Sulfate Hfa] Ipratropium-Albuterol Nebulize 3 ml INHALATION RT-Q6H 05/05/20 05/05/20 [Duoneb 0.5 mg-3 mg/3 ml Soln] Allergies Allergy/AdvReac Type Severity Reaction Status Date / Time amlodipine Allergy Swelling Verified 05/05/20 13:23 mercury (elemental) Allergy Unknown Verified 05/05/20 13:23 lisinopril AdvReac scratchy Verified 05/05/20 13:23 cough thimerosal AdvReac Abdominal Verified 05/05/20 13:23 Pain,fever,itchy & draining eyes Review of Systems ROS Other: All systems not noted in ROS Statement are negative. <Hermes Fisher P - Last Filed: 05/05/20 14:26> ROS Other: All systems not noted in ROS Statement are negative. <Lei Luna - Last Filed: 05/05/20 15:32> ROS Statement: Those systems with pertinent positive or pertinent negative responses have been documented in the HPI. Past Medical History Past Medical History: COPD, GERD/Reflux, Hyperlipidemia, Hypertension Additional Past Medical History / Comment(s): ,SEPTIC WITH GALL BLADDER withPLEURAL EFFUSION 2006( ENLARGED LIVER, KIDNEY INFECTION also), ARTI [place], hx migraines, occ palpitations, chronic bronchitis, hiatal hernia, diverticulosis, lesion on liver, History of Any Multi-Drug Resistant Organisms: None Reported Past Surgical History: Adenoidectomy, Appendectomy, Cholecystectomy, Hysterectomy, Joint Replacement, Orthopedic Surgery, Tonsillectomy Additional Past Surgical History / Comment(s): COLONOSCOPY, colton cataracts, rt carpal tunnel x 2, rt thumb arthroplasty, cubital tunnel repair rt elbow, left knee arthroscopy, Past Anesthesia/Blood Transfusion Reactions: Motion Sickness Additional Past Anesthesia/Blood Transfusion Reaction / Comment(s): NO PROBLEMS WITH PRIOR BLOOD TRANSFUSION Past Psychological History: No Psychological Hx Reported Smoking Status: Current every day smoker Past Alcohol Use History: None Reported Past Drug Use History: None Reported - Past Family History Mother Family Medical History: Dementia, Vascular Disorder Father Family Medical History: Hypertension Sister(s) Family Medical History: Asthma, COPD Brother(s) Family Medical History: COPD, Hypertension Additional Family Medical History / Comment(s): BROOKLYNN SALEEM <Hermes Fisher P - Last Filed: 05/05/20 14:26> General Exam Limitations: physical limitation General appearance: alert, in no apparent distress Head exam: Present: atraumatic, normocephalic, normal inspection Eye exam: Present: normal appearance, PERRL, EOMI. Absent: scleral icterus, conjunctival injection, periorbital swelling ENT exam: Present: normal exam, mucous membranes moist Neck exam: Present: normal inspection, full ROM. Absent: tenderness, meningismus, lymphadenopathy Respiratory exam: Present: normal lung sounds bilaterally. Absent: respiratory distress, wheezes, rales, rhonchi, stridor Cardiovascular Exam: Present: regular rate, normal rhythm, normal heart sounds. Absent: systolic murmur, diastolic murmur, rubs, gallop, clicks GI/Abdominal exam: Present: soft, tenderness (Generalized abdominal tenderness worse in the right and left upper quadrants.), normal bowel sounds. Absent: distended, guarding, rebound, rigid Neurological exam: Present: alert <Hermes Fisher P - Last Filed: 05/05/20 14:26> Course Vital Signs 05/05/20 05/05/20 11:39 15:18 Temperature 98.1 F Pulse Rate 72 Respiratory 18 Rate Blood Pressure 133/79 O2 Sat by Pulse 98 98 Oximetry Medical Decision Making - Lab Data Result diagrams: 05/05/20 11:55 05/05/20 11:55 <Hermes Fisher P - Last Filed: 05/05/20 14:26> - Lab Data Result diagrams: 05/05/20 11:55 10/13/20 11:55 <Lei Luna - Last Filed: 05/05/20 15:32> - Medical Decision Making Vitals are stable. CBC does show leukocytosis with a left shift, could be related to vomiting. CMP unremarkable. Some evidence of dehydration. Urinalysis negative. Patient was given medications and did have some improvement in symptoms, no longer vomiting. CT abdomen and pelvis was ordered which showed multiple dilated loops of small bowel measuring up to 3.1 cm with right lower quadrant transition zone noted. Findings are felt to reflect early complete or high-grade partial small bowel obstruction. Patient will be admitted to the with surgery consultation. (Hermes Fisher) Patient evaluated, resting comfortably, NG tube was placed for decompression. Case discussed with general surgery Dr. Hooker will be admitted with internal medicine on consult. (Lei Luna) - Lab Data Lab Results 05/05/20 05/05/20 05/05/20 Range/Units 11:55 11:55 11:55 WBC 15.1 H (3.8-10.6) k/uL RBC 4.97 (3.80-5.40) m/uL Hgb 15.5 (11.4-16.0) gm/dL Hct 48.1 H (34.0-46.0) % MCV 96.9 (80.0-100.0) fL MCH 31.2 (25.0-35.0) pg MCHC 32.2 (31.0-37.0) g/dL RDW 13.3 (11.5-15.5) % Plt Count 370 (150-450) k/uL Neutrophils % 86 % Lymphocytes % 7 % Monocytes % 4 % Eosinophils % 2 % Basophils % 1 % Neutrophils # 13.0 H (1.3-7.7) k/uL Lymphocytes # 1.0 (1.0-4.8) k/uL Monocytes # 0.6 (0-1.0) k/uL Eosinophils # 0.2 (0-0.7) k/uL Basophils # 0.1 (0-0.2) k/uL Sodium 135 L (137-145) mmol/L Potassium 4.7 (3.5-5.1) mmol/L Chloride 101 (98-107) mmol/L Carbon Dioxide 26 (22-30) mmol/L Anion Gap 8 mmol/L BUN 20 H (7-17) mg/dL Creatinine 1.28 H (0.52-1.04) mg/dL Est GFR (CKD-EPI)AfAm 50 (>60 ml/min/1.73 sqM) Est GFR (CKD-EPI)NonAf 43 (>60 ml/min/1.73 sqM) Glucose 145 H (74-99) mg/dL Plasma Lactic Acid Geoff (0.7-2.0) mmol/L Calcium 11.1 H (8.4-10.2) mg/dL Total Bilirubin 0.6 (0.2-1.3) mg/dL AST 40 H (14-36) U/L ALT 27 (4-34) U/L Alkaline Phosphatase 82 (38-126) U/L Total Protein 7.8 (6.3-8.2) g/dL Albumin 4.8 (3.5-5.0) g/dL Amylase 131 H (30-110) U/L Lipase 105 (23-300) U/L Urine Color Yellow Urine Appearance Cloudy H (Clear) Urine pH 7.5 (5.0-8.0) Ur Specific Dana 1.013 (1.001-1.035) Urine Protein Trace H (Negative) Urine Glucose (UA) Negative (Negative) Urine Ketones Negative (Negative) Urine Blood Negative (Negative) Urine Nitrite Negative (Negative) Urine Bilirubin Negative (Negative) Urine Urobilinogen <2.0 (<2.0) mg/dL Ur Leukocyte Esterase Negative (Negative) Urine RBC 2 (0-5) /hpf Urine WBC 4 (0-5) /hpf Ur Squamous Epith Cells 8 H (0-4) /hpf Amorphous Sediment Moderate H (None) /hpf Urine Mucus Rare H (None) /hpf 05/05/20 Range/Units 11:55 WBC (3.8-10.6) k/uL RBC (3.80-5.40) m/uL Hgb (11.4-16.0) gm/dL Hct (34.0-46.0) % MCV (80.0-100.0) fL MCH (25.0-35.0) pg MCHC (31.0-37.0) g/dL RDW (11.5-15.5) % Plt Count (150-450) k/uL Neutrophils % % Lymphocytes % % Monocytes % % Eosinophils % % Basophils % % Neutrophils # (1.3-7.7) k/uL Lymphocytes # (1.0-4.8) k/uL Monocytes # (0-1.0) k/uL Eosinophils # (0-0.7) k/uL Basophils # (0-0.2) k/uL Sodium (137-145) mmol/L Potassium (3.5-5.1) mmol/L Chloride (98-107) mmol/L Carbon Dioxide (22-30) mmol/L Anion Gap mmol/L BUN (7-17) mg/dL Creatinine (0.52-1.04) mg/dL Est GFR (CKD-EPI)AfAm (>60 ml/min/1.73 sqM) Est GFR (CKD-EPI)NonAf (>60 ml/min/1.73 sqM) Glucose (74-99) mg/dL Plasma Lactic Acid Geoff 1.0 (0.7-2.0) mmol/L Calcium (8.4-10.2) mg/dL Total Bilirubin (0.2-1.3) mg/dL AST (14-36) U/L ALT (4-34) U/L Alkaline Phosphatase (38-126) U/L Total Protein (6.3-8.2) g/dL Albumin (3.5-5.0) g/dL Amylase (30-110) U/L Lipase (23-300) U/L Urine Color Urine Appearance (Clear) Urine pH (5.0-8.0) Ur Specific Dana (1.001-1.035) Urine Protein (Negative) Urine Glucose (UA) (Negative) Urine Ketones (Negative) Urine Blood (Negative) Urine Nitrite (Negative) Urine Bilirubin (Negative) Urine Urobilinogen (<2.0) mg/dL Ur Leukocyte Esterase (Negative) Urine RBC (0-5) /hpf Urine WBC (0-5) /hpf Ur Squamous Epith Cells (0-4) /hpf Amorphous Sediment (None) /hpf Urine Mucus (None) /hpf Disposition Is patient prescribed a controlled substance at d/c from ED?: No Time of Disposition: 14:26 <Hermes Fisher P - Last Filed: 05/05/20 14:26> <Lei Luna - Last Filed: 05/05/20 15:32> Clinical Impression: Small bowel obstruction Disposition: ADMITTED IP TO THIS HOSP
--- NOTE | 2020-05-05 14:00 | CT ---
EXAMINATION TYPE: CT abdomen pelvis w con DATE OF EXAM: 05/05/2020 COMPARISON: 02/19/2018 HISTORY: Upper Abd Pain CT DLP: 700.1 mGycm CONTRAST: CT scan of the abdomen and pelvis is performed without Oral Contrast and with IV Contrast, patient in jected with 80 mL of Isovue 300. FINDINGS: LUNG BASES-: No visible nodule. No infiltrate. LIVER/GB: Cholecystectomy clips are noted to be in place. No space occupying hepatic lesion. Bilia ry tree is of normal caliber. PANCREAS: No inflammation. No distinct mass. SPLEEN: No splenic enlargement. No lesion seen. ADRENALS: No nodule. No thickening. KIDNEYS/BLADDER: No hydronephrosis. No nephrolithiasis. Renal cystic changes noted. Urinary bladder grossly unremarkable. BOWEL: Multiple dilated loops of small bowel measuring up to 3.1 cm with right lower quadrant transit ion zone noted. Findings are felt to reflect early complete or high-grade partial obstruction. There is no evidence for free air or abscess. Nonvisualization of the appendix. GENITAL ORGANS: No gross abnormality. LYMPH NODES: No greater than 1cm abdominal or pelvic lymph nodes are appreciated. AORTA: No significant abnormality. OSSEOUS STRUCTURES: No significant abnormality is seen. OTHER: No significant additional abnormality is seen. IMPRESSION: 1. Multiple dilated loops of small bowel measuring up to 3.1 cm with right lower quadrant transition zone noted. Findings are felt to reflect early complete or high-grade partial obstruction.
[2020-05-05] MEDS ORDERED: PIPERACILLIN-TAZOBACTAM 3.375 GM in SODIUM CHLORIDE 0.9% 100 ML IVPB STA (14:22)
[2020-05-05] MEDS ORDERED: NALOXONE 0.4 MG/ML 1 ML VIAL IV PRN (14:22)
[2020-05-05] MEDS ORDERED: MORPHINE SULFATE 4 MG/ML SYRINGE IVP STA (14:23)
[2020-05-05] MEDS: SODIUM CHLORIDE 0.9% 1,000 ML IV SCH ×2 (15:04→23:28)
--- NOTE | 2020-05-05 15:40 | XR ---
EXAMINATION TYPE: XR chest 1V portable DATE OF EXAM: 05/05/2020 HISTORY: Shortness of breath. COMPARISON: 06/25/2019 TECHNIQUE: Single view of the chest is submitted. FINDINGS: NG tube is seen coursing into the stomach. Demonstrated are scattered senescent parenchymal change. There is no evidence for focal infiltrate. The heart is stable. Hilar and mediastinal structures are within normal limits. Degenerative changes are seen of the dorsal spine. IMPRESSION: 1. Chronic changes without evidence for acute pulmonary disease.
[2020-05-05] MEDS ORDERED: diphenhydrAMINE 25 MG CAP PO PRN (19:35)
[2020-05-05] MEDS ORDERED: ALPRAZolam 0.25 MG TAB PO PRN (19:36)
[2020-05-05] MEDS: ONDANSETRON 4 MG/2 ML VIAL IVP PRN (20:39)
[2020-05-05] MEDS: IPRATROPIUM-ALBUTEROL 3 ML NEB INHALATION SCH (20:45)
[2020-05-05] MEDS: SYMBICORT 160-4.5 MCG INHALER INHALATION SCH (20:45)
[2020-05-05] MEDS: HYDROmorphone 0.5 MG/0.5 ML SYRINGE IVP PRN (20:55)
[2020-05-05] MEDS: METOPROLOL TARTRATE 25 MG TAB PO SCH (23:13)
[2020-05-05] MEDS: MONTELUKAST 10 MG TAB PO SCH (23:13)
[2020-05-05] MEDS: PANTOPRAZOLE 40 MG/10 ML VIAL IVP SCH (23:14)
[2020-05-05] MEDS: HEPARIN SODIUM,PORCINE 5,000 UNIT/ML 1 ML VIAL SQ SCH (23:14)
[2020-05-05] MEDS: PIPERACILLIN-TAZOBACTAM 3.375 GM in SODIUM CHLORIDE 0.9% 100 ML IVPB SCH (23:22)
[2020-05-05] MEDS: NICOTINE 14MG/24HR PATCH TRANSDERM SCH (23:27)
[2020-05-06] MEDS: HYDROmorphone 0.5 MG/0.5 ML SYRINGE IVP PRN ×5 (01:32→23:31)
[2020-05-06] MEDS: IPRATROPIUM-ALBUTEROL 3 ML NEB INHALATION SCH ×4 (01:55→18:57)
--- NOTE | 2020-05-06 04:33 | HP ---
HISTORY AND PHYSICAL CHIEF COMPLAINT: Abdominal pain and distention. HISTORY OF PRESENT ILLNESS: This 70-year-old woman with a past medical history of multiple medical problems including GERD, hypertension, hyperlipidemia, history of gallbladder sepsis, history of pleural effusion, history of Joan-Erwin virus, history of adenoidectomy, appendectomy, cholecystectomy being followed by Dr. Townsend in the outpatient setting, was admitted with abdominal pain. The patient had diffuse abdominal pain which was worsening for the last 12 hours, which is mostly during the upper abdomen. The patient also had some nausea, vomiting. The patient came to [facility] and admitted for further evaluation. White count is elevated to 15.1, creatinine is 1.28 and the patient also had abdomen and pelvis CAT scan which was reviewed personally by me showed evidence of multiple loops of small bowel measuring up to 3.1 cm in the right lower quadrant. High-grade partial obstruction or complete obstruction suspected. Patient admitted for further evaluation and treatment. There is no history of fever, rigors. No history of headache, loss of consciousness, or seizures at this time. PAST MEDICAL HISTORY: History of GERD, history of COPD, hypertension, hyperlipidemia, history of gallbladder sepsis, appendectomy, history of adenoidectomy. MEDICATIONS: Medications prior to admission include home medications are: 1. Benadryl. 2. Vitamin A. 3. Vitamin B6. 4. Singulair. 5. Lopressor. 6. Melatonin. 7. Magnesium. 8. Cozaar. 9. DuoNeb. 10.Ibuprofen. 11.Hydrochlorothiazide. 12.Pepcid. 13.Zetia. 14.Vitamin B12. 15.Vitamin D3. 16.Symbicort. 17.Aspirin. 18.Albuterol. 19.Tylenol. Doses are reviewed. ALLERGIES: AMLODIPINE, MERCURY, LISINOPRIL, THIMEROSAL. FAMILY HISTORY: Family history of dementia, vascular disorder, Guillain-[place]. SOCIAL HISTORY: History of smoking, continued ongoing. No history of alcohol intake. REVIEW OF SYSTEMS: ENT: Diminished hearing, diminished vision. CARDIOVASCULAR SYSTEM: No angina. RESPIRATORY SYSTEM: No cough or hemoptysis. GI: As mentioned earlier. : No dysuria. NERVOUS SYSTEM: No numbness or weakness. ALLERGY/IMMUNOLOGY: No asthma or hay fever. MUSCULOSKELETAL: As mentioned earlier. HEMATOLOGY: No history of anemia. ENDOCRINE: No history of diabetes or hypothyroidism. CONSTITUTIONAL: As mentioned earlier. DERMATOLOGY: Negative. RHEUMATOLOGY: Negative. PSYCHIATRY: As mentioned earlier. PHYSICAL EXAMINATION: The patient is alert and oriented x3. Pulse is 81, blood pressure 115/69, respiration 18, temperature 98 degrees, pulse ox 98% on room air. HEENT: Conjunctivae normal. Oral mucosa moist. NECK: No jugular venous distention. No carotid bruit. No lymph node enlargement. CARDIOVASCULAR: S1, S2 muffled. RESPIRATORY: Breath sounds diminished at the bases. A few scattered rhonchi and crackles. ABDOMEN: Soft, mild diffuse distention, mild diffuse tenderness present. No guarding. No rigidity. No mass palpable. Small bowel sounds diminished. No ascites. LEGS: No edema, no swelling. NERVOUS SYSTEM: Higher function as mentioned earlier. Moves all 4 limbs. No focal motor or sensory deficits. LYMPHATICS: No lymphadenopathy of the neck, axillae or groin. JOINTS: No active deforming arthropathy. SKIN: No ulcer, rash or bleeding. LABS: WBC 15.1, hemoglobin 15.5, sodium 135, creatinine 1.28. Other labs reviewed. CT scan reviewed. ASSESSMENT: 1. Abdominal pain with acute partial small-bowel obstruction. 2. Acute renal failure with acute prerenal acute tubular necrosis. 3. Hyponatremia. 4. Possible urinary tract infection. 5. Elevated calcium. 6. Increased WBC, possibly reactive. 7. Chronic obstructive pulmonary disease. 8. Gastroesophageal reflux disease. 9. Hypertension. 10.Hyperlipidemia. 11.History of gallbladder sepsis. 12.History of Joan Erwin. 13.History of migraine. 14.History of palpitation. 15.History of chronic bronchitis. 16.History of diverticulosis. 17.History of appendectomy. 18.History of cholecystectomy. 19.History of degenerative joint disease. 20.History of motion sickness. 21.History of nicotine dependence, continued ongoing. 22.FULL CODE. RECOMMENDATIONS AND DISCUSSION: This 70-year-old woman who presented with multiple complex medical issues, we will monitor the patient closely. NG tube, surgical evaluation. I would also recommend empiric antibiotics, symptomatic treatment. Otherwise, IV fluids. Repeat labs. Resume the home medications. DVT prophylaxis. Prognosis guarded because of multiple complex medical issues. Proton pump inhibitors. Discussed the patient, understands. Further recommendations to follow. A copy of dictation forwarded to Dr. Townsend who is the primary physician. MMODL / IJN: [id number] /
[2020-05-06 05:10] LABS: Basophils # (A) 0.1 k/uL (0-0.2); Basophils % (A) 1 %; Eosinophils # (A) 0.2 k/uL (0-0.7); Eosinophils % (A) 2 %; HCT 40.5 % (34.0-46.0); HGB 13.6 gm/dL (11.4-16.0); Lymphocytes # (A) 2.1 k/uL (1.0-4.8); Lymphocytes % (A) 19 %; MCH 32.6 pg (25.0-35.0); MCHC 33.7 g/dL (31.0-37.0); MCV 96.7 fL (80.0-100.0); Mean Platelet Volume 6.9; Monocytes % (A) 9 %; Neutrophils # (A) 7.5 k/uL (1.3-7.7); Neutrophils % (A) 68 %; Platelet Count 294 k/uL (150-450); RBC 4.19 m/uL (3.80-5.40); RDW 13.2 % (11.5-15.5); WBC 10.9 k/uL (3.8-10.6)
[2020-05-06] MEDS: ONDANSETRON 4 MG/2 ML VIAL IVP PRN ×2 (05:20→07:49)
[2020-05-06] MEDS: PANTOPRAZOLE 40 MG/10 ML VIAL IVP SCH ×2 (07:45→20:05)
[2020-05-06] MEDS: NICOTINE 14MG/24HR PATCH TRANSDERM SCH (07:52)
[2020-05-06] MEDS: LOSARTAN 25 MG TAB PO SCH (07:54)
[2020-05-06] MEDS: HEPARIN SODIUM,PORCINE 5,000 UNIT/ML 1 ML VIAL SQ SCH ×2 (07:54→20:05)
[2020-05-06] MEDS: SYMBICORT 160-4.5 MCG INHALER INHALATION SCH ×2 (07:54→19:01)
[2020-05-06] MEDS: PIPERACILLIN-TAZOBACTAM 3.375 GM in SODIUM CHLORIDE 0.9% 100 ML IVPB SCH ×3 (07:54→23:30)
[2020-05-06] MEDS: hydroCHLOROthiazide 12.5 MG CAP PO SCH (07:55)
[2020-05-06] MEDS: METOPROLOL TARTRATE 25 MG TAB PO SCH ×2 (07:55→20:05)
[2020-05-06 09:44] LABS: African American GFR (CKD) 27.3 (60.0-200.0); Anion Gap 10.8 mmol/L (4.00-12.00); BUN/Creat Ratio 11.9 Ratio (12.00-20.00); Calcium 9.8 mg/dL (8.7-10.3); Carbon Dioxide 24.2 mmol/L (21.6-31.8); Non-African American GFR(CKD) 23.6 (60.0-200.0); Potassium 4.4 mmol/L (3.5-5.5)
--- NOTE | 2020-05-06 13:06 | P.GSHP ---
History of Present Illness H&P Date: 05/06/20 CHIEF COMPLAINT: Abdominal pain HISTORY OF PRESENT ILLNESS: This is a 70-year-old female with a known past medical history of GERD, hypertension, constipation, Diverticulosis, cholecystectomy, appendectomy, vaginal rectal fistula repair 2, hysterectomy, exploratory laparotomy for endometriosis. Patient presents to the emergency room with complaints of abdominal pain and bloating that started at midnight last night. She also is having vomiting. She reports having constipation about a week ago. But since then was having daily bowel movements. She does admit to having chills and sweats. She had computed tomography scan of abdomen and pelvis showing multiple dilated loops of small bowel measuring up to 3.1 cm with right lower quadrant transition zone noted. Findings were felt to reflect a complete or high-grade partial obstruction. Patient had NG tube inserted. PAST MEDICAL HISTORY: See list. PAST SURGICAL HISTORY: See list. MEDICATIONS: See list. ALLERGIES: See list. SOCIAL HISTORY: No illicit drug use. REVIEW OF SYSTEMS: CONSTITUTIONAL: Denies fever or chills. HEENT: Denies blurred vision, vision changes, or eye pain. Denies hemoptysis CARDIOVASCULAR: Denies chest pain or pressure. RESPIRATORY: No shortness of breath. GASTROINTESTINAL: See HPI for pertinent findings HEMATOLOGIC: Denies bleeding disorders. GENITOURINARY: Denies any blood in urine or increased urinary frequency. SKIN: Denies pruitis. Denies rash. PHYSICAL EXAM: VITAL SIGNS: Reviewed GENERAL: Well-developed in no acute distress. HEENT: No sclera icterus. Extraocular movements grossly intact. Moist buccal mucosa. Head is atraumatic, normocephalic. No nasal drainage. ABDOMEN: Soft. Mildly distended. Diffuse abdominal tenderness. NEUROLOGIC: Alert and oriented. Cranial nerves II through XII grossly intact. LABORATORY DATA: WBC 15.1 down to 10.9, hemoglobin 13.6 IMAGING: computed tomography scan of abdomen and pelvis showing multiple dilated loops of small bowel measuring up to 3.1 cm with right lower quadrant transition zone noted. Findings were felt to reflect a complete or high-grade partial obstruction. ASSESSMENT: 1. Complete or high-grade partial small bowel obstruction PLAN: -Patient scheduled for Exploratory laparotomy today with Dr. Hooker -Continue NG tube for decompression -Keep patient nothing by mouth Physician Final Dressing Cutter note has been reviewed by physician. Signing provider agrees with the documented findings, assessment, and plan of care. Past Medical History Past Medical History: COPD, GERD/Reflux, Hyperlipidemia, Hypertension Additional Past Medical History / Comment(s): ,SEPTIC WITH GALL BLADDER withPLEURAL EFFUSION 2006; ENLARGED LIVER, KIDNEY INFECTION also, ARTI [place], hx migraines, occ palpitations, chronic bronchitis, hiatal hernia, diverticulosis, lesion on liver, History of Any Multi-Drug Resistant Organisms: None Reported Past Surgical History: Adenoidectomy, Appendectomy, Cholecystectomy, Hysterect marco a, Joint Replacement, Orthopedic Surgery, Tonsillectomy Additional Past Surgical History / Comment(s): EGD, COLONOSCOPY, colton cataracts, rt carpal tunnel x 2, rt thumb arthroplasty, cubital tunnel repair rt elbow, left knee arthroscopy, Past Anesthesia/Blood Transfusion Reactions: Motion Sickness Additional Past Anesthesia/Blood Transfusion Reaction / Comment(s): NO PROBLEMS WITH PRIOR BLOOD TRANSFUSION Past Psychological History: No Psychological Hx Reported Smoking Status: Current some day smoker Past Alcohol Use History: None Reported Additional Past Alcohol Use History / Comment(s): STARTED SMOKING 1968, 6 cigare ttes per week. Past Drug Use History: None Reported Additional Drug Use History / Comment(s): . - Past Family History Mother Family Medical History: Dementia Additional Family Medical History / Comment(s): Alzheimers Father Family Medical History: Chest Pain / Angina, Hypertension Sister(s) Family Medical History: Asthma, COPD Additional Family Medical History / Comment(s): Multiple sclerosis, passed a 50 Brother(s) Family Medical History: COPD, Hypertension Additional Family Medical History / Comment(s): GULLIAN BARRE Medications and Allergies Home Medications Medication Instructions Recorded Confirmed Type Cholecalciferol [Vitamin D3] 5,000 unit PO DAILY 08/06/15 05/05/20 History Losartan [Cozaar] 12.5 mg PO QAM 08/06/15 05/05/20 History Pyridoxine [Vitamin B-6] 100 mg PO BID 08/06/15 05/05/20 History Cyanocobalamin [Vitamin B-12] 1,000 mcg PO DAILY 04/21/17 05/05/20 History Ezetimibe [Zetia] 10 mg PO HS 04/21/17 05/05/20 History Famotidine [Pepcid] 20 mg PO BID 04/21/17 05/05/20 History Ibuprofen [Motrin] 400 mg PO Q6HR PRN 04/21/17 05/05/20 History Acetaminophen [Tylenol Arthritis] 650 mg PO Q6HR PRN 04/10/20 05/05/20 History Aspirin [Adult Low Dose Aspirin EC] 81 mg PO DAILY 04/10/20 05/05/20 History Budesonide-Formot 160-4.5 Mcg 2 puff INHALATION BID 04/10/20 05/05/20 History [Symbicort 160-4.5 Mcg Inhaler] Hydrochlorothiazide 12.5 mg PO QAM 04/10/20 05/05/20 History [hydroCHLOROthiazide] Magnesium 250 mg PO BID 04/10/20 05/05/20 History Melatonin 10 mg PO HS 04/10/20 05/05/20 History Metoprolol Tartrate [Lopressor] 25 mg PO BID 04/10/20 05/05/20 History Montelukast [Singulair] 10 mg PO HS 04/10/20 05/05/20 History Vitamin A Tab 2,400 mcg PO DAILY 04/10/20 05/05/20 History diphenhydrAMINE [Benadryl] 25 mg PO HS PRN 04/10/20 05/05/20 History Albuterol Sulfate [Albuterol 1 puff PO RT-Q6H PRN 05/05/20 05/05/20 History Sulfate Hfa] Ipratropium-Albuterol Nebulize 3 ml INHALATION RT-Q6H 05/05/20 05/05/20 History [Duoneb 0.5 mg-3 mg/3 ml Soln] Allergies Allergy/AdvReac Type Severity Reaction Status Date / Time amlodipine Allergy Swelling Verified 05/05/20 13:23 mercury (elemental) Allergy Unknown Verified 05/05/20 13:23 lisinopril AdvReac scratchy Verified 05/05/20 13:23 cough thimerosal AdvReac Abdominal Verified 05/05/20 13:23 Pain,fever,itchy & draining eyes Surgical - Exam Vital Signs Temp Pulse Resp BP Pulse Ox 98.1 F 72 18 133/79 98 05/05/20 11:39 05/05/20 11:39 05/05/20 11:39 05/05/20 11:39 05/05/20 11:39 Results - Labs 05/06/20 04:33 05/06/20 04:33 Abnormal Lab Results - Last 24 Hours (Table) 05/05/20 05/06/20 05/06/20 Range/Units 11:55 04:33 04:33 WBC 10.9 H (3.8-10.6) k/uL Creatinine 2.1 H (0.6-1.5) mg/dL Est GFR (CKD-EPI)AfAm 27.3 L (60.0-200.0) Est GFR (CKD-EPI)NonAf 23.6 L (60.0-200.0) BUN/Creatinine Ratio 11.90 L (12.00-20.00) Ratio Urine Appearance Cloudy H (Clear) Urine Protein Trace H (Negative) Ur Squamous Epith Cells 8 H (0-4) /hpf Amorphous Sediment Moderate H (None) /hpf Urine Mucus Rare H (None) /hpf Diabetes panel 05/06/20 Range/Units 04:33 Sodium 139 (135-145) mmol/L Potassium 4.4 (3.5-5.5) mmol/L Chloride 104 (96-109) mmol/L Carbon Dioxide 24.2 (21.6-31.8) mmol/L BUN 25.0 (9.0-27.0) mg/dL Creatinine 2.1 H (0.6-1.5) mg/dL Glucose 98 (70-110) mg/dL Calcium 9.8 (8.7-10.3) mg/dL Calcium panel 05/06/20 Range/Units 04:33 Calcium 9.8 (8.7-10.3) mg/dL Pituitary panel 05/06/20 Range/Units 04:33 Sodium 139 (135-145) mmol/L Potassium 4.4 (3.5-5.5) mmol/L Chloride 104 (96-109) mmol/L Carbon Dioxide 24.2 (21.6-31.8) mmol/L BUN 25.0 (9.0-27.0) mg/dL Creatinine 2.1 H (0.6-1.5) mg/dL Glucose 98 (70-110) mg/dL Calcium 9.8 (8.7-10.3) mg/dL Adrenal panel 05/06/20 Range/Units 04:33 Sodium 139 (135-145) mmol/L Potassium 4.4 (3.5-5.5) mmol/L Chloride 104 (96-109) mmol/L Carbon Dioxide 24.2 (21.6-31.8) mmol/L BUN 25.0 (9.0-27.0) mg/dL Creatinine 2.1 H (0.6-1.5) mg/dL Glucose 98 (70-110) mg/dL Calcium 9.8 (8.7-10.3) mg/dL
[2020-05-06] MEDS ORDERED: LACTATED RINGERS 1,000 ML IV ONE ×2 (13:25→14:55)
[2020-05-06] MEDS ORDERED: ONDANSETRON 4 MG/2 ML VIAL IVP ONE (13:47)
[2020-05-06] MEDS ORDERED: PROPOFOL 10 MG/ML 20 ML VIAL IV ONE (14:08)
[2020-05-06] MEDS ORDERED: GLYCOPYRROLATE 0.2 MG/ML 2 ML VIAL ONE (14:08)
[2020-05-06] MEDS ORDERED: SUCCINYLCHOLINE CHLORIDE 100 MG/5 ML SYR IV ONE (14:08)
[2020-05-06] MEDS ORDERED: ePHEDrine SULFATE/0.9% NACL/PF 50 MG/5 ML SYRINGE IV ONE (14:08)
[2020-05-06] MEDS ORDERED: LIDOCAINE 1% INJ 10MG/ML (20 ML MDV) ONE (14:08)
[2020-05-06] MEDS ORDERED: NEOSTIGMINE 1 MG/ML 10 ML VIAL ONE (14:08)
[2020-05-06] MEDS ORDERED: fentaNYL (PF) 50 MCG/ML 2 ML AMP ONE (14:08)
[2020-05-06] MEDS ORDERED: MIDAZOLAM 2 MG/2 ML VIAL ONE (14:08)
[2020-05-06] MEDS ORDERED: ROCURONIUM 10 MG/ML (10 ML VIAL) IV ONE (14:08)
[2020-05-06] MEDS ORDERED: HYDROmorphone (PF) 1 MG/ML ONE (14:08)
[2020-05-06] MEDS ORDERED: ONDANSETRON 4 MG/2 ML VIAL IVP PRN (14:55)
[2020-05-06] MEDS ORDERED: METOCLOPRAMIDE 5 MG/ML 2 ML VIAL IVP PRN (14:55)
[2020-05-06] MEDS ORDERED: NALOXONE 0.4 MG/ML 1 ML VIAL IV PRN (14:55)
--- NOTE | 2020-05-06 14:55 | P.OP ---
Date of Procedure: 05/06/20 Preoperative Diagnosis: Small bowel obstruction Postoperative Diagnosis: Small bowel obstruction secondary to internal hernia Procedure(s) Performed: Exploratory laparotomy Lysis of adhesions Anesthesia: TYE Surgeon: Blas Hooker Estimated Blood Loss (ml): 10 Pathology: none sent Condition: stable Disposition: PACU Description of Procedure: Patient's placed the operative table in the supine position. She received general endotracheal tube anesthesia. Her abdomen was prepped and draped usual fashion. The abdomen was entered through a midline incision. There were adhesions to the anterior abdominal wall. These were lysed with sharp dissection. The small bowel was followed and there appeared to be an internal hernia due to an adhesive band. The hernia was located in the right lower quadrant and the proximal ileum was obstructed. The adhesion was lysed the sma ll bowel was then run from the ligament Treitz to the terminal ileum and ileocecal valve. There is no other obstruction seen. The abdomen was irrigated there is no bleeding seen. The fascia was then closed with looped #1 PDS suture. Skin was closed indio. Patient top she will was sent to recovery room in stable condition.
--- NOTE | 2020-05-06 14:59 | P.GSHP ---
History of Present Illness H&P Date: 05/05/20 Chief Complaint: Abdominal pain nausea This a 62-year-old female who presents to the emergency complaints of abdominal pain and nausea. Patient 24 hour history of nausea vomiting pain. Patient her history of open appendectomy in hysterectomy. Her CAT scan shows evidence of small bowel obstruction. Past Medical History Past Medical History: COPD, GERD/Reflux, Hyperlipidemia, Hypertension Additional Past Medical History / Comment(s): ,SEPTIC WITH GALL BLADDER withPLEURAL EFFUSION 2006; ENLARGED LIVER, KIDNEY INFECTION also, ARTI [place], hx migraines, occ palpitations, chronic bronchitis, hiatal hernia, diverticulosis, lesion on liver, History of Any Multi-Drug Resistant Organisms: None Reported Past Surgical History: Adenoidectomy, Appendectomy, Cholecystectomy, Hysterectomy, Joint Replacement, Orthopedic Surgery, Tonsillectomy Additional Past Surgical History / Comment(s): EGD, COLONOSCOPY, colton cataracts, rt carpal tunnel x 2, rt thumb arthroplasty, cubital tunnel repair rt elbow, left knee arthroscopy, Past Anesthesia/Blood Transfusion Reactions: Motion Sickness Additional Past Anesthesia/Blood Transfusion Reaction / Comment(s): NO PROBLEMS WITH PRIOR BLOOD TRANSFUSION Past Psychological History: No Psychological Hx Reported Smoking Status: Current some day smoker Past Alcohol Use History: None Reported Additional Past Alcohol Use History / Comment(s): STARTED SMOKING 1968, 6 cigarettes per week. Past Drug Use History: None Reported Additional Drug Use History / Comment(s): . - Past Family History Mother Family Medical History: Dementia Additional Family Medical History / Comment(s): Alzheimers Father Family Medical History: Chest Pain / Angina, Hypertension Sister(s) Family Medical History: Asthma, COPD Additional Family Medical History / Comment(s): Multiple sclerosis, passed a 50 Brother(s) Family Medical History: COPD, Hypertension Additional Family Medical History / Comment(s): GULLIAN BARRE Medications and Allergies Home Medications Medication Instructions Recorded Confirmed Type Cholecalciferol [Vitamin D3] 5,000 unit PO DAILY 08/06/15 05/05/20 History Losartan [Cozaar] 12.5 mg PO QAM 08/06/15 05/05/20 History Pyridoxine [Vitamin B-6] 100 mg PO BID 08/06/15 05/05/20 History Cyanocobalamin [Vitamin B-12] 1,000 mcg PO DAILY 04/21/17 05/05/20 History Ezetimibe [Zetia] 10 mg PO HS 04/21/17 05/05/20 History Famotidine [Pepcid] 20 mg PO BID 04/21/17 05/05/20 History Ibuprofen [Motrin] 400 mg PO Q6HR PRN 04/21/17 05/05/20 History Acetaminophen [Tylenol Arthritis] 650 mg PO Q6HR PRN 04/10/20 05/05/20 History Aspirin [Adult Low Dose Aspirin EC] 81 mg PO DAILY 04/10/20 05/05/20 History Budesonide-Formot 160-4.5 Mcg 2 puff INHALATION BID 04/10/20 05/05/20 History [Symbicort 160-4.5 Mcg Inhaler] Hydrochlorothiazide 12.5 mg PO QAM 04/10/20 05/05/20 History [hydroCHLOROthiazide] Magnesium 250 mg PO BID 04/10/20 05/05/20 History Melatonin 10 mg PO HS 04/10/20 05/05/20 History Metoprolol Tartrate [Lopressor] 25 mg PO BID 04/10/20 05/05/20 History Montelukast [Singulair] 10 mg PO HS 04/10/20 05/05/20 History Vitamin A Tab 2,400 mcg PO DAILY 04/10/20 05/05/20 History diphenhydrAMINE [Benadryl] 25 mg PO HS PRN 04/10/20 05/05/20 History Albuterol Sulfate [Albuterol 1 puff PO RT-Q6H PRN 05/05/20 05/05/20 History Sulfate Hfa] Ipratropium-Albuterol Nebulize 3 ml INHALATION RT-Q6H 05/05/20 05/05/20 History [Duoneb 0.5 mg-3 mg/3 ml Soln] Allergies Allergy/AdvReac Type Severity Reaction Status Date / Time amlodipine Allergy Swelling Verified 05/05/20 13:23 mercury (elemental) Allergy Unknown Verified 05/05/20 13:23 lisinopril AdvReac scratchy Verified 05/05/20 13:23 cough thimerosal AdvReac Abdominal Verified 05/05/20 13:23 Pain,fever,itchy & draining eyes Surgical - Exam Vital Signs Temp Pulse Resp BP Pulse Ox 98.1 F 72 18 133/79 98 10/13/20 11:39 05/05/20 11:39 05/05/20 11:39 05/05/20 11:39 05/05/20 11:39 - General well developed, well nourished, no distress - Eyes PERRL - ENT normal pinna - Neck no masses - Respiratory normal expansion - Cardiovascular Rhythm: regular - Abdomen Abdomen is distended. There is mild tenderness throughout. Abdomen: soft Results - Labs 05/06/20 04:33 05/06/20 04:33 Abnormal Lab Results - Last 24 Hours (Table) 05/06/20 05/06/20 Range/Units 04:33 04:33 WBC 10.9 H (3.8-10.6) k/uL Creatinine 2.1 H (0.6-1.5) mg/dL Est GFR (CKD-EPI)AfAm 27.3 L (60.0-200.0) Est GFR (CKD-EPI)NonAf 23.6 L (60.0-200.0) BUN/Creatinine Ratio 11.90 L (12.00-20.00) Ratio Diabetes panel 05/06/20 Range/Units 04:33 Sodium 139 (135-145) mmol/L Potassium 4.4 (3.5-5.5) mmol/L Chloride 104 (96-109) mmol/L Carbon Dioxide 24.2 (21.6-31.8) mmol/L BUN 25.0 (9.0-27.0) mg/dL Creatinine 2.1 H (0.6-1.5) mg/dL Glucose 98 (70-110) mg/dL Calcium 9.8 (8.7-10.3) mg/dL Calcium panel 05/06/20 Range/Units 04:33 Calcium 9.8 (8.7-10.3) mg/dL Pituitary panel 05/06/20 Range/Units 04:33 Sodium 139 (135-145) mmol/L Potassium 4.4 (3.5-5.5) mmol/L Chloride 104 (96-109) mmol/L Carbon Dioxide 24.2 (21.6-31.8) mmol/L BUN 25.0 (9.0-27.0) mg/dL Creatinine 2.1 H (0.6-1.5) mg/dL Glucose 98 (70-110) mg/dL Calcium 9.8 (8.7-10.3) mg/dL Adrenal panel 05/06/20 Range/Units 04:33 Sodium 139 (135-145) mmol/L Potassium 4.4 (3.5-5.5) mmol/L Chloride 104 (96-109) mmol/L Carbon Dioxide 24.2 (21.6-31.8) mmol/L BUN 25.0 (9.0-27.0) mg/dL Creatinine 2.1 H (0.6-1.5) mg/dL Glucose 98 (70-110) mg/dL Calcium 9.8 (8.7-10.3) mg/dL Assessment and Plan Assessment: Small bowel obstruction, most likely due to adhesions. Patient will undergo exploratory laparotomy in the a.m.
[2020-05-06] MEDS ORDERED: HYDROmorphone 0.5 MG/0.5 ML SYRINGE IVP ONE ×2 (15:13→16:05)
[2020-05-06] MEDS ORDERED: HYDROmorphone 1 MG/ML 1 ML SYRINGE IVP ONE (15:43)
[2020-05-06] MEDS: MONTELUKAST 10 MG TAB PO SCH (20:05)
--- NOTE | 2020-05-06 21:56 | PN ---
PROGRESS NOTE DATE OF SERVICE: 05/06/2020 This 70-year-old woman who was admitted with abdominal pain and features of partial small-bowel obstruction underwent exploratory laparotomy and lysis of adhesions by the Dr. Hooker. An internal hernia due to an adhesive band was suspected. No chest pain. No palpitations. No fever. PHYSICAL EXAMINATION: Alert and oriented x3. Pulse is 83, blood pressure 100/69, respiration 18, temperature normal, pulse ox 94% on 3 L. HEENT: Conjunctivae normal. NECK: No jugular venous distention. CARDIOVASCULAR SYSTEM: S1, S2 muffled. RESPIRATORY SYSTEM: Breath sounds diminished at the bases. No rhonchi. No crackles. ABDOMEN: Soft. Status post surgery. LEGS: No edema. No swelling. NERVOUS SYSTEM: No focal deficit. LABS: WBC 10.9. Sodium 139, creatinine is 2.1. ASSESSMENT: 1. Abdominal pain with partial small-bowel obstruction, status post exploratory laparotomy and lysis of adhesions. 2. Acute renal failure with acute prerenal acute tubular necrosis. 3. Hyponatremia. 4. Urinary tract infection, present on admission. 5. Elevated calcium. 6. Increased white count, possibly reactive. 7. Chronic obstructive pulmonary disease. 8. Gastroesophageal reflux disease. 9. Hypertension. 10.Hyperlipidemia. 11.History of gallbladder sepsis. 12.History of Joan-[place]. 13.History of migraine. 14.History of palpitations. 15.History of chronic bronchitis. 16.History of diverticulosis. 17.History of appendectomy. 18.History of cholecystectomy. 19.History of degenerative joint disease. 20.History of motion sickness. 21.History of nicotine dependence, continued ongoing. 22.FULL CODE. RECOMMENDATIONS AND DISCUSSION: I recommend to continue current medications, continue with the monitoring, symptomatic treatment. Closely follow with Surgery. Otherwise, incentive spirometry. Monitor the creatinine closely. Guarded prognosis because of multiple complex medical issues. Further recommendations to follow. MMODL / IJN: [id number] /
[2020-05-06] MEDS: SODIUM CHLORIDE 0.9% 1,000 ML IV SCH (22:52)
[2020-05-07] MEDS: IPRATROPIUM-ALBUTEROL 3 ML NEB INHALATION SCH ×4 (00:45→19:15)
[2020-05-07] MEDS: HYDROmorphone 0.5 MG/0.5 ML SYRINGE IVP PRN ×5 (03:21→19:20)
[2020-05-07] MEDS: SODIUM CHLORIDE 0.9% 1,000 ML IV SCH (06:15)
[2020-05-07 06:57] LABS: Basophils # (A) 0.1 k/uL (0-0.2); Basophils % (A) 0 %; Eosinophils % (A) 0 %; HCT 37.5 % (34.0-46.0); HGB 12.2 gm/dL (11.4-16.0); Lymphocytes # (A) 1.3 k/uL (1.0-4.8); Lymphocytes % (A) 10 %; MCHC 32.5 g/dL (31.0-37.0); MCV 98.6 fL (80.0-100.0); Mean Platelet Volume 6.5; Monocytes # (A) 0.8 k/uL (0-1.0); Monocytes % (A) 6 %; Neutrophils # (A) 10.9 k/uL (1.3-7.7); Neutrophils % (A) 83 %; Platelet Count 257 k/uL (150-450); RDW 13.2 % (11.5-15.5); WBC 13.2 k/uL (3.8-10.6)
[2020-05-07] MEDS: SYMBICORT 160-4.5 MCG INHALER INHALATION SCH ×2 (07:24→19:16)
[2020-05-07] MEDS: NICOTINE 14MG/24HR PATCH TRANSDERM SCH (07:46)
[2020-05-07] MEDS: hydroCHLOROthiazide 12.5 MG CAP PO SCH (07:52)
[2020-05-07] MEDS: LOSARTAN 25 MG TAB PO SCH (07:52)
[2020-05-07] MEDS: METOPROLOL TARTRATE 25 MG TAB PO SCH ×2 (07:53→20:59)
[2020-05-07] MEDS: PANTOPRAZOLE 40 MG/10 ML VIAL IVP SCH ×2 (07:58→20:59)
[2020-05-07] MEDS: PIPERACILLIN-TAZOBACTAM 3.375 GM in SODIUM CHLORIDE 0.9% 100 ML IVPB SCH ×2 (07:59→16:11)
[2020-05-07] MEDS ORDERED: ENOXAPARIN 40 MG/0.4 ML SYRINGE SQ SCH (09:00)
[2020-05-07 09:40] LABS: African American GFR (CKD) 27.3 (60.0-200.0); Anion Gap 12.3 mmol/L (4.00-12.00); BUN/Creat Ratio 13.33 Ratio (12.00-20.00); Calcium 9.3 mg/dL (8.7-10.3); Carbon Dioxide 24.7 mmol/L (21.6-31.8); Non-African American GFR(CKD) 23.6 (60.0-200.0); Potassium 4.5 mmol/L (3.5-5.5)
[2020-05-07] MEDS: HEPARIN SODIUM,PORCINE 5,000 UNIT/ML 1 ML VIAL SQ SCH (11:02)
--- NOTE | 2020-05-07 13:47 | P.PN ---
Subjective Progress Note Date: 05/07/20 CHIEF COMPLAINT: Small bowel obstruction HISTORY OF PRESENT ILLNESS: Small bowel obstruction secondary to internal hernia Status post exploratory laparotomy with lysis of adhesions. Patient is reporting abdominal pain. She rates her pain 9 out of 10 but does decrease with pain medication to 6 out of 10. Creatinine is Up to 2.1 PHYSICAL EXAM: VITAL SIGNS: Reviewed. GENERAL: Well-developed in no acute distress. HEENT: No sclera icterus. Extraocular movements grossly intact. Moist buccal mucosa. Head is atraumatic, normocephalic. ABDOMEN: Soft. Nondistended. Nontender. NEUROLOGIC: Alert and oriented. Cranial nerves II through XII grossly intact. ASSESSMENT: 1. Small bowel obstruction secondary to internal hernia Status post exploratory laparotomy with lysis of adhesions. Postop day #1 PLAN: -Keep patient nothing by mouth except for ice chips -Remove NG tube and Perdomo catheter today -Continue pain medications as needed Physician Pharmacy Salesperson note has been reviewed by physician. Signing provider agrees with the documented findings, assessment, and plan of care. Objective - Vital Signs Vital signs: Vital Signs Temp 99.5 F 05/07/20 05:11 Pulse 88 05/07/20 12:42 Resp 16 05/07/20 05:11 BP 105/69 05/07/20 05:11 Pulse Ox 97 05/07/20 05:11 Intake & Output 05/06/20 05/07/20 05/07/20 18:59 06:59 18:59 Intake Total 1930 1310 Output Total 210 900 Balance 1720 410 Intake: IV 1350 Intake, IV Titration 580 720 Amount Piperacillin-Tazobactam 3 100 .375 gm In Sodium Chloride 0.9% 100 ml @ 25 mls/hr IVPB Q8HR [facility] Rx# :[id number] Sodium Chloride 0.9% 1, 480 720 000 ml @ 60 mls/hr IV . [id number] [facility] Rx#:[id number] Oral 590 Output: Urine 200 900 Uretheral (Perdomo) 900 Estimated Blood Loss 10 Other: Voiding Method Toilet Indwelling Catheter - Labs CBC & Chem 7: 05/07/20 06:02 05/07/20 06:02 Labs: Abnormal Lab Results - Last 24 Hours (Table) 05/07/20 05/07/20 Range/Units 06:02 06:02 WBC 13.2 H (3.8-10.6) k/uL Neutrophils # 10.9 H (1.3-7.7) k/uL Anion Gap 12.30 H (4.00-12.00) mmol/L BUN 28.0 H (9.0-27.0) mg/dL Creatinine 2.1 H (0.6-1.5) mg/dL Est GFR (CKD-EPI)AfAm 27.3 L (60.0-200.0) Est GFR (CKD-EPI)NonAf 23.6 L (60.0-200.0) Microbiology - Last 24 Hours (Table) 05/05/20 15:00 Blood Culture - Preliminary Blood No Growth after 24 hours
--- NOTE | 2020-05-07 17:07 | PN ---
PROGRESS NOTE DATE OF SERVICE: 05/07/2020 This 70-year-old woman was admitted with abdominal pain and partial small-bowel obstruction had surgery, exploratory laparotomy, lysis of adhesions. Patient still has NG tube. No chest pain. No palpitations. No fever. Surgery is following the patient closely. PHYSICAL EXAMINATION: Alert and oriented x3. Pulse 77, blood pressure 100/60, respiration is 16, temperature 98.7, pulse ox 94% on 4 L. HEENT: Conjunctivae normal. NECK: No jugular venous distension. CARDIOVASCULAR SYSTEM: S1, S2, muffled. RESPIRATION: Breath sounds diminished at the bases, no rhonchi, no crackles. ABDOMEN: Soft, status post surgery. LEGS: No edema, no swelling. LABS: Sodium 132, hemoglobin 12.2, sodium 140, potassium 4.5. ASSESSMENT: 1. Abdominal pain with partial small-bowel obstruction, status post exploratory laparotomy, lysis of adhesion. 2. Acute renal failure with acute prerenal acute tubular necrosis. 3. Hyponatremia. 4. UTI, present on admission. 5. Elevated calcium. 6. Increased WBC, possibly reactive. 7. Chronic obstructive pulmonary disease. 8. Gastroesophageal reflux disease. 9. Hypertension. 10.Hyperlipidemia. 11.History of gallbladder sepsis. 12.History of Joan Erwin. 13.History of migraine. 14.History of palpitation. 15.History of chronic bronchitis. 16.History of diverticulosis. 17.History of appendectomy. 18.History of cholecystectomy. 19.History of DJD. 20.History of motion sickness. 21.History of nicotine dependence, continued ongoing. 22.FULL CODE. RECOMMENDATION: Recommend to continue current management and symptomatic treatment. Incentive spirometry. Diet and NG tube per Surgery. Will monitor labs closely guarded. Otherwise, continue to monitor. Further recommendation to follow. MMODL / IJN: [id number] /
[2020-05-07] MEDS: MONTELUKAST 10 MG TAB PO SCH (20:59)
[2020-05-08] MEDS: PIPERACILLIN-TAZOBACTAM 3.375 GM in SODIUM CHLORIDE 0.9% 100 ML IVPB SCH ×4 (00:01→23:29)
[2020-05-08] MEDS: HYDROmorphone 0.5 MG/0.5 ML SYRINGE IVP PRN ×2 (00:01→09:15)
[2020-05-08] MEDS: IPRATROPIUM-ALBUTEROL 3 ML NEB INHALATION SCH ×4 (03:38→19:43)
[2020-05-08 06:14] LABS: Basophils # (A) 0.1 k/uL (0-0.2); Basophils % (A) 0 %; Eosinophils # (A) 0.2 k/uL (0-0.7); Eosinophils % (A) 2 %; HCT 36.7 % (34.0-46.0); HGB 11.6 gm/dL (11.4-16.0); Lymphocytes # (A) 1.1 k/uL (1.0-4.8); Lymphocytes % (A) 10 %; MCH 31.3 pg (25.0-35.0); MCHC 31.6 g/dL (31.0-37.0); MCV 98.9 fL (80.0-100.0); Mean Platelet Volume 6.7; Monocytes # (A) 0.7 k/uL (0-1.0); Monocytes % (A) 7 %; Neutrophils # (A) 9.3 k/uL (1.3-7.7); Neutrophils % (A) 81 %; Platelet Count 253 k/uL (150-450); RBC 3.71 m/uL (3.80-5.40); RDW 13.6 % (11.5-15.5); WBC 11.5 k/uL (3.8-10.6)
[2020-05-08] MEDS: SODIUM CHLORIDE 0.9% 1,000 ML IV SCH ×2 (06:22→16:05)
[2020-05-08] MEDS: ENOXAPARIN 30 MG/0.3 ML SYRINGE SQ SCH (07:07)
[2020-05-08] MEDS: LOSARTAN 25 MG TAB PO SCH (07:07)
[2020-05-08] MEDS: hydroCHLOROthiazide 12.5 MG CAP PO SCH (07:07)
[2020-05-08] MEDS: METOPROLOL TARTRATE 25 MG TAB PO SCH ×2 (07:07→20:26)
[2020-05-08] MEDS: NICOTINE 14MG/24HR PATCH TRANSDERM SCH (07:08)
[2020-05-08] MEDS: PANTOPRAZOLE 40 MG/10 ML VIAL IVP SCH ×2 (07:09→20:26)
[2020-05-08] MEDS: SYMBICORT 160-4.5 MCG INHALER INHALATION SCH ×2 (07:45→19:43)
[2020-05-08 09:58] LABS: African American GFR (CKD) 35.3 (60.0-200.0); Anion Gap 8.2 mmol/L (4.00-12.00); BUN/Creat Ratio 14.12 Ratio (12.00-20.00); Calcium 9.6 mg/dL (8.7-10.3); Carbon Dioxide 27.8 mmol/L (21.6-31.8); Non-African American GFR(CKD) 30.5 (60.0-200.0)
[2020-05-08 13:21] LABS: Appearance,Urine Clear (Clear); Bacteria,Urine Rare /hpf; Bilirubin,Urine Negative (Negative); Blood,Urine Moderate (Negative); Color,Urine Light Yellow; Glucose,Urine (UA) Negative (Negative); Ketones,Urine Negative (Negative); Leukocyte Esterase,Urine Negative (Negative); Mucus,Urine Rare /hpf; Nitrite,Urine Negative (Negative); PH, Urine 5.5 (5.0-8.0); Protein,Urine Trace (Negative); RBC,Urine 4 /hpf (0-5); Specific Gravity,Urine 1.014 (1.001-1.035); Squamous Epithelial Cell,Urine 4 /hpf (0-4); Urobilinogen,Urine <2.0 mg/dL (<2.0); WBC,Urine 2 /hpf (0-5)
[2020-05-08 13:49] VITALS: BMI 20.5
--- NOTE | 2020-05-08 13:56 | P.PN ---
Subjective Progress Note Date: 05/08/20 CHIEF COMPLAINT: Small bowel obstruction HISTORY OF PRESENT ILLNESS: Small bowel obstruction secondary to internal hernia Status post exploratory laparotomy with lysis of adhesions. Patient is reporting abdominal pain. She denies any nausea vomiting. She is passing gas. She did have some bleeding at her incision site. White count 11.5 Hemoglobin 11.6 creatinine 1.7 she is afebrile Patient did report some burning with urination. Urinalysis ordered showing some blood present in the urine, Which is likely Perdomo catheter trauma PHYSICAL EXAM: VITAL SIGNS: Reviewed. GENERAL: Well-developed in no acute distress. HEENT: No sclera icterus. Extraocular movements grossly intact. Moist buccal mucosa. Head is atraumatic, normocephalic. ABDOMEN: Soft. Nondistended. Nontender. Some bleeding noted at the incision site on the dressing. Dressing has been changed. NEUROLOGIC: Alert and oriented. Cranial nerves II through XII grossly intact. ASSESSMENT: 1. Small bowel obstruction secondary to internal hernia Status post exploratory laparotomy with lysis of adhesions. Postop day #2 PLAN: -Advance diet to clear liquidsAdvance diet to full liquid diet -Continue pain medications as needed -dressing changed -Continue IV fluids -Medicine following Physician Hair Rooting Machine Operator note has been reviewed by physician. Signing provider agrees with the documented findings, assessment, and plan of care. Objective - Vital Signs Vital signs: Vital Signs Temp 99.2 F 05/08/20 11:50 Pulse 73 05/08/20 11:50 Resp 17 05/08/20 11:50 BP 122/73 05/08/20 11:50 Pulse Ox 97 05/08/20 11:50 Intake & Output 05/07/20 05/08/20 05/08/20 18:59 06:59 18:59 Intake Total 480 480 Output Total 1200 600 Balance -1200 480 -120 Weight 61.235 kg Intake: Intake, IV Titration 480 480 Amount Sodium Chloride 0.9% 1, 480 480 000 ml @ 60 mls/hr IV . [id number] [facility] Rx#:[id number] Output: Urine 1200 600 Other: Voiding Method Indwelling Catheter Toilet Toilet # Voids 0 1 1 - Labs CBC & Chem 7: 05/08/20 05:47 05/08/20 05:47 Labs: Abnormal Lab Results - Last 24 Hours (Table) 10/05/08/20 05/08/20 Range/Units 05:47 05:47 12:26 WBC 11.5 H (3.8-10.6) k/uL RBC 3.71 L (3.80-5.40) m/uL Neutrophils # 9.3 H (1.3-7.7) k/uL Creatinine 1.7 H (0.6-1.5) mg/dL Est GFR (CKD-EPI)AfAm 35.3 L (60.0-200.0) Est GFR (CKD-EPI)NonAf 30.5 L (60.0-200.0) Urine Protein Trace H (Negative) Urine Blood Moderate H (Negative) Urine Bacteria Rare H (None) /hpf Urine Mucus Rare H (None) /hpf Microbiology - Last 24 Hours (Table) 05/05/20 15:00 Blood Culture - Preliminary Blood No Growth after 48 hours
[2020-05-08] MEDS: HYDROcodone/APAP 5-325MG 1 EACH TAB PO PRN ×2 (15:59→21:45)
--- NOTE | 2020-05-08 16:31 | PN ---
PROGRESS NOTE DATE OF SERVICE: 05/08/2020 This 70-year-old woman who was admitted with abdominal pain had partial small-bowel obstruction and underwent exploratory laparotomy and lysis of adhesions. Patient had an NG tube, which was removed. No chest pain. No palpitations. No fever. PHYSICAL EXAMINATION: Alert and oriented x3. Pulse 73, blood pressure 122/73, respiration 17, temperature 99.2, pulse ox 97% on 3 L. HEENT: Conjunctivae normal. NECK: No jugular venous distention. CARDIOVASCULAR SYSTEM: S1, S2 muffled. RESPIRATORY SYSTEM: Breath sounds diminished at the bases. No rhonchi. No crackles. ABDOMEN: Soft, non-tender. NERVOUS SYSTEM: No focal deficit. N LABS: WBC 11.3, hemoglobin 11.6, creatinine is 1.7. LFTs are noted. Calcium is improved to 9.6, possibly secondary to dehydration. ASSESSMENT: 1. Abdominal pain with partial small-bowel obstruction, status post exploratory laparotomy and lysis of adhesions. 2. Acute renal failure with acute prerenal acute tubular necrosis. 3. Hyponatremia. 4. Urinary tract infection, present on admission. 5. Elevated calcium secondary to dehydration, improved. 6. Increased white count, possibly reactive. 7. Chronic obstructive pulmonary disease. 8. Gastroesophageal reflux disease. 9. Hypertension. 10.Hyperlipidemia. 11.History of gallbladder sepsis. 12.History of Joan Erwin virus. 13.History of migraines. 14.History of palpitations. 15.History of chronic bronchitis. 16.History of diverticulosis. 17.History of appendectomy. 18.Cholecystectomy. 19.History of degenerative joint disease. 20.History of motion sickness. 21.History of nicotine dependence, continued, ongoing. 22.FULL CODE. RECOMMENDATIONS AND DISCUSSION: I recommend to continue current medications, continue with the monitoring, symptomatic treatment. Will check labs tomorrow. Continue the rest of the medication. DVT prophylaxis. Further recommendations to follow. MMODL / IJN: [id number] /
--- NOTE | 2020-05-08 16:41 | XR ---
EXAMINATION TYPE: XR chest 1V DATE OF EXAM: 05/08/2020 COMPARISON: 05/05/2020 HISTORY: Short of breath TECHNIQUE: Single view FINDINGS: Heart is normal. Lungs are clear of consolidation. There is slight blunting of the costophr enic angles. There are no hilar masses. Thoracic aorta is atheromatous. There are no hilar masses. IMPRESSION: There are new small pleural effusions compared to old exam. No heart failure seen.
[2020-05-08] MEDS: MONTELUKAST 10 MG TAB PO SCH (20:26)
[2020-05-09] MEDS: IPRATROPIUM-ALBUTEROL 3 ML NEB INHALATION SCH ×4 (03:44→20:08)
[2020-05-09] MEDS: HYDROcodone/APAP 5-325MG 1 EACH TAB PO PRN ×3 (03:53→18:08)
[2020-05-09 06:17] LABS: Basophils % (A) 0 %; Eosinophils # (A) 0.3 k/uL (0-0.7); Eosinophils % (A) 3 %; HCT 31.7 % (34.0-46.0); HGB 10.5 gm/dL (11.4-16.0); Lymphocytes # (A) 1.1 k/uL (1.0-4.8); Lymphocytes % (A) 12 %; MCH 32.4 pg (25.0-35.0); MCHC 33.2 g/dL (31.0-37.0); MCV 97.8 fL (80.0-100.0); Mean Platelet Volume 6.9; Monocytes # (A) 0.7 k/uL (0-1.0); Monocytes % (A) 7 %; Neutrophils # (A) 7.4 k/uL (1.3-7.7); Neutrophils % (A) 77 %; Platelet Count 232 k/uL (150-450); RBC 3.25 m/uL (3.80-5.40); RDW 13.3 % (11.5-15.5); WBC 9.7 k/uL (3.8-10.6)
--- NOTE | 2020-05-09 07:50 | P.PN ---
Progress Note - Text Progress Note Date: 05/09/20 The patient is resting comfortably bed. She has some complaints of abdominal pain. On exam vital signs are stable. Abdomen soft incision site is clean dry tach. Status post lysis of adhesion for closed loop obstruction. Patient will remain on full liquid diet.
[2020-05-09] MEDS: SYMBICORT 160-4.5 MCG INHALER INHALATION SCH ×2 (07:58→20:08)
[2020-05-09] MEDS: ENOXAPARIN 30 MG/0.3 ML SYRINGE SQ SCH (08:31)
[2020-05-09] MEDS: LOSARTAN 25 MG TAB PO SCH ×2 (08:31→08:42)
[2020-05-09] MEDS: METOPROLOL TARTRATE 25 MG TAB PO SCH (08:31)
[2020-05-09] MEDS: NICOTINE 14MG/24HR PATCH TRANSDERM SCH (08:32)
[2020-05-09] MEDS: PANTOPRAZOLE 40 MG/10 ML VIAL IVP SCH ×2 (08:32→20:47)
[2020-05-09] MEDS: PIPERACILLIN-TAZOBACTAM 3.375 GM in SODIUM CHLORIDE 0.9% 100 ML IVPB SCH ×2 (09:02→16:31)
[2020-05-09 09:08] LABS: African American GFR (CKD) 44.6 (60.0-200.0); Anion Gap 8.3 mmol/L (4.00-12.00); BUN/Creat Ratio 14.29 Ratio (12.00-20.00); Calcium 9.2 mg/dL (8.7-10.3); Carbon Dioxide 27.7 mmol/L (21.6-31.8); Non-African American GFR(CKD) 38.5 (60.0-200.0); Potassium 3.1 mmol/L (3.5-5.5)
[2020-05-09] MEDS ORDERED: Potassium Replacement Protocol 1 EACH MISC MISCELLANE PRN (12:20)
[2020-05-09] MEDS: POTASSIUM CHLORIDE ER 20 MEQ TAB.ER PO SCH ×2 (16:31→16:32)
--- NOTE | 2020-05-09 19:35 | PN ---
PROGRESS NOTE DATE OF SERVICE: 05/09/2020 This 70-year-old woman was admitted with abdominal pain and is complaining of some abdominal distention today. No chest pain. No palpitations. No fever. The most recent chest x-ray which was reviewed personally by me showed some increased bronchovascular markings. No chest pain, no palpitation. PHYSICAL EXAMINATION: Alert and oriented x3. The pulse is 75, blood pressure 92/60, respiration 12, temperature 98.2, pulse ox 98% on room air. HEENT: Conjunctivae normal. Oral mucosa moist. NECK: No jugular venous distention. No lymph node enlargement. CARDIOVASCULAR: S1, S2, muffled. No S3, no S4, RESPIRATORY: Diminished breath sounds at the bases. No rhonchi, no crackles. ABDOMEN: Soft, nontender. LEGS: No edema, no swelling. NERVOUS SYSTEM: No focal deficits. LABS: WBC 9.7, sodium 140, potassium 3.1. UA noted. ASSESSMENT: 1. Abdominal pain with partial small-bowel obstruction status post exploratory laparotomy and lysis of adhesions. 2. Acute renal failure with acute prerenal acute tubular necrosis, present on admission, improved. 3. Hyponatremia. 4. Urinary tract infection, present on admission. 5. Elevated calcium secondary to dehydration, improved. 6. Increased WBC, possibly reactive. 7. Chronic obstructive pulmonary disease. 8. Gastroesophageal reflux disease. 9. Hypertension. 10.Hyperlipidemia. 11.History of gallbladder sepsis. 12.History of Joan Bar virus. 13.History of migraine. 14.History of palpitation. 15.History of chronic bronchitis. 16.History of diverticulosis. 17.History of appendectomy. 18.History of cholecystectomy. 19.History of degenerative joint disease. 20.History of motion sickness. 21.History of nicotine dependence, continued, ongoing. 22.FULL CODE. RECOMMENDATIONS AND DISCUSSION: Recommend to continue current medications, continue symptomatic treatment. Otherwise, at this time I would recommend to continue with broad-spectrum IV antibiotics. We will cut down the hypertensive medications on the Lopressor to 12.5 mg b.i.d. and hold if systolic blood pressure less than 110. Otherwise, repeat labs will be ordered. Prognosis guarded. Chest x-ray was reviewed. Patient on broad IV antibiotics. Further recommendations to follow. MMODL / IJN: [id number] /
[2020-05-09] MEDS: SODIUM CHLORIDE 0.9% 1,000 ML IV SCH (20:41)
[2020-05-09] MEDS: MONTELUKAST 10 MG TAB PO SCH (20:47)
[2020-05-09] MEDS: METOPROLOL TARTRATE 12.5 MG TAB PO SCH (20:47)
[2020-05-10] MEDS: HYDROcodone/APAP 5-325MG 1 EACH TAB PO PRN ×4 (00:14→21:46)
[2020-05-10] MEDS: PIPERACILLIN-TAZOBACTAM 3.375 GM in SODIUM CHLORIDE 0.9% 100 ML IVPB SCH ×4 (00:15→23:39)
[2020-05-10] MEDS: IPRATROPIUM-ALBUTEROL 3 ML NEB INHALATION SCH ×4 (02:23→19:59)
[2020-05-10 04:28] LABS: Basophils % (A) 1 %; Eosinophils # (A) 0.4 k/uL (0-0.7); Eosinophils % (A) 5 %; HCT 31.6 % (34.0-46.0); HGB 10.5 gm/dL (11.4-16.0); Lymphocytes # (A) 1.2 k/uL (1.0-4.8); Lymphocytes % (A) 18 %; MCH 32.7 pg (25.0-35.0); MCHC 33.3 g/dL (31.0-37.0); MCV 98.3 fL (80.0-100.0); Mean Platelet Volume 6.9; Monocytes # (A) 0.5 k/uL (0-1.0); Monocytes % (A) 7 %; Neutrophils # (A) 4.5 k/uL (1.3-7.7); Neutrophils % (A) 67 %; Platelet Count 232 k/uL (150-450); RBC 3.21 m/uL (3.80-5.40); RDW 12.6 % (11.5-15.5); WBC 6.7 k/uL (3.8-10.6)
[2020-05-10] MEDS: SODIUM CHLORIDE 0.9% 1,000 ML IV SCH (05:44)
[2020-05-10] MEDS: SYMBICORT 160-4.5 MCG INHALER INHALATION SCH ×2 (07:18→20:00)
--- NOTE | 2020-05-10 08:17 | P.PN ---
Progress Note - Text Progress Note Date: 05/10/20 The patient feels better. She's had a small amount of flatus. She's had no significant bowel movement. On exam vital signs are stable. Abdomen soft. Incision is clean dry and intact. Status post lysis of adhesion for closed loop obstruction. Patient remained on liquid diet. She'll have her diet advanced once her bowel function returns.
[2020-05-10] MEDS: LOSARTAN 25 MG TAB PO SCH (08:23)
[2020-05-10] MEDS: PANTOPRAZOLE 40 MG/10 ML VIAL IVP SCH ×2 (08:23→21:46)
[2020-05-10] MEDS: NICOTINE 14MG/24HR PATCH TRANSDERM SCH (08:23)
[2020-05-10] MEDS: ENOXAPARIN 30 MG/0.3 ML SYRINGE SQ SCH (08:23)
[2020-05-10] MEDS: METOPROLOL TARTRATE 12.5 MG TAB PO SCH ×2 (08:24→21:44)
[2020-05-10 09:30] LABS: African American GFR (CKD) 44.6 (60.0-200.0); BUN/Creat Ratio 12.86 Ratio (12.00-20.00); Non-African American GFR(CKD) 38.5 (60.0-200.0); Potassium 3.3 mmol/L (3.5-5.5)
[2020-05-10] MEDS ORDERED: Potassium Replacement Protocol 1 EACH MISC MISCELLANE PRN (11:28)
[2020-05-10] MEDS: POTASSIUM CHLORIDE ER 20 MEQ TAB.ER PO SCH (11:56)
[2020-05-10] MEDS: DOCUSATE 100 MG CAP PO SCH ×2 (11:56→21:44)
[2020-05-10] MEDS: MONTELUKAST 10 MG TAB PO SCH (21:44)
--- NOTE | 2020-05-10 23:53 | PN ---
PROGRESS NOTE DATE OF SERVICE: 05/10/2020 This 70-year-old woman who was admitted with abdominal pain with partial small bowel obstruction had exploratory laparotomy. The patient is feeling slightly better today. No chest pain. No palpitations. No fever. A chest x-ray done recently showed some pleural effusion. No chest pain. No palpitations. No fever. PHYSICAL EXAMINATION: On exam, alert and oriented x3. Pulse is 68, blood pressure 93/57, respiration 17, temperature 97.8, pulse ox 94% on room air. HEENT: Conjunctivae normal. NECK: No jugular venous distention. CARDIOVASCULAR: S1, S2 muffled. RESPIRATORY: Breath sounds diminished at the bases. No rhonchi. No crackles. ABDOMEN: Soft, status post surgery. LEGS: No edema. No swelling. NERVOUS SYSTEM: No focal deficits. LABS: WBC 6.7, hemoglobin 10.5. Other labs are noted. Potassium 3.3. ASSESSMENT: 1. Abdominal pain with partial small-bowel obstruction, status post exploratory laparotomy, lysis of adhesion. 2. Acute renal failure with acute prerenal acute tubular necrosis, present on admission, improved. 3. Hyponatremia. 4. Urinary tract infection, present on admission. 5. Elevated calcium secondary to dehydration, improved. 6. Increased WBC, possibly reactive. 7. Chronic obstructive pulmonary disease. 8. Gastroesophageal reflux disease. 9. Hypertension. 10.Hyperlipidemia. 11.History of gallbladder sepsis. 12.History of Joan-Erwin virus. 13.History of migraines. 14.History of palpitation. 15.History of chronic bronchitis. 16.History of diverticulosis. 17.History of appendectomy. 18.History of cholecystectomy. 19.History of degenerative joint disease. 20.History of motion sickness. 21.History of nicotine dependence, continued ongoing. 22.FULL CODE. RECOMMENDATIONS AND DISCUSSION: Recommend to continue current medications, continue symptomatic treatment. Continue with empiric antibiotics. Repeat labs. Closely follow with Surgery. Further recommendations to follow. DVT prophylaxis. Further recommendations to follow. MMODL / IJN: [id number] /
[2020-05-11] MEDS: IPRATROPIUM-ALBUTEROL 3 ML NEB INHALATION SCH ×4 (01:08→20:52)
[2020-05-11 05:38] LABS: Basophils % (A) 1 %; Eosinophils # (A) 0.3 k/uL (0-0.7); Eosinophils % (A) 5 %; HCT 34.3 % (34.0-46.0); HGB 11.3 gm/dL (11.4-16.0); Lymphocytes # (A) 1.2 k/uL (1.0-4.8); Lymphocytes % (A) 19 %; MCH 32.1 pg (25.0-35.0); MCHC 32.9 g/dL (31.0-37.0); MCV 97.7 fL (80.0-100.0); Mean Platelet Volume 6.8; Monocytes # (A) 0.4 k/uL (0-1.0); Monocytes % (A) 7 %; Neutrophils % (A) 66 %; Platelet Count 275 k/uL (150-450); RDW 12.7 % (11.5-15.5)
[2020-05-11] MEDS: SODIUM CHLORIDE 0.9% 1,000 ML IV SCH ×2 (06:33→19:02)
[2020-05-11] MEDS: SYMBICORT 160-4.5 MCG INHALER INHALATION SCH ×2 (07:03→20:52)
[2020-05-11] MEDS: HYDROmorphone 1 MG/ML 1 ML SYRINGE IVP PRN ×2 (08:08→19:06)
[2020-05-11] MEDS: ENOXAPARIN 30 MG/0.3 ML SYRINGE SQ SCH (08:12)
[2020-05-11] MEDS: LOSARTAN 25 MG TAB PO SCH (08:12)
[2020-05-11] MEDS: PANTOPRAZOLE 40 MG/10 ML VIAL IVP SCH ×2 (08:12→20:48)
[2020-05-11] MEDS: PIPERACILLIN-TAZOBACTAM 3.375 GM in SODIUM CHLORIDE 0.9% 100 ML IVPB SCH ×2 (08:13→19:02)
[2020-05-11] MEDS: DOCUSATE 100 MG CAP PO SCH ×2 (08:13→20:48)
[2020-05-11] MEDS: METOPROLOL TARTRATE 12.5 MG TAB PO SCH ×2 (08:13→20:48)
[2020-05-11] MEDS: NICOTINE 14MG/24HR PATCH TRANSDERM SCH (08:16)
[2020-05-11 11:02] LABS: African American GFR (CKD) 48.8 (60.0-200.0); Anion Gap 10.1 mmol/L (4.00-12.00); BUN/Creat Ratio 12.31 Ratio (12.00-20.00); Calcium 9.3 mg/dL (8.7-10.3); Carbon Dioxide 25.9 mmol/L (21.6-31.8); Non-African American GFR(CKD) 42.1 (60.0-200.0); Potassium 3.8 mmol/L (3.5-5.5)
--- NOTE | 2020-05-11 12:25 | P.PN ---
Subjective Progress Note Date: 05/11/20 CHIEF COMPLAINT: Small bowel obstruction HISTORY OF PRESENT ILLNESS: Small bowel obstruction secondary to internal hernia Status post exploratory laparotomy with lysis of adhesions. Patient is reporting abdominal pain. He did have some nausea this morning. She is passing gas. She still has not had a BM since surgery. She has been up and ambulating. She's afebrile. WBC is 6.0. Potassium corrected at 3.8 PHYSICAL EXAM: VITAL SIGNS: Reviewed. GENERAL: Well-developed in no acute distress. HEENT: No sclera icterus. Extraocular movements grossly intact. Moist buccal mucosa. Head is atraumatic, normocephalic. ABDOMEN: Soft. Nondistended. Dressing clean dry and intact NEUROLOGIC: Alert and oriented. Cranial nerves II through XII grossly intact. ASSESSMENT: 1. Small bowel obstruction secondary to internal hernia Status post exploratory laparotomy with lysis of adhesions. PLAN: -Continue full liquid diet -Will give a soapsuds enema -Consult dietitian for education on a low fiber diet -Continue pain medications as needed -Encourage patient to ambulate and use incentive spirometer -DVT prophylaxis Lovenox Physician Human Resources Operations Director note has been reviewed by physician. Signing provider agrees with the documented findings, assessment, and plan of care. Objective - Vital Signs Vital signs: Vital Signs Temp 98.3 F 05/10/20 20:33 Pulse 76 05/11/20 07:15 Resp 16 05/10/20 20:33 BP 110/70 05/10/20 20:33 Pulse Ox 96 05/11/20 07:03 Intake & Output 05/10/20 05/11/20 05/11/20 18:59 06:59 18:59 Intake Total 700 640 Balance 700 640 Weight 61.235 kg Intake: Intake, IV Titration 100 580 Amount Piperacillin-Tazobactam 3 100 100 .375 gm In Sodium Chloride 0.9% 100 ml @ 25 mls/hr IVPB Q8HR [facility] Rx# :[id number] Sodium Chloride 0.9% 1, 480 000 ml @ 60 mls/hr IV . [id number] [facility] Rx#:[id number] Oral 600 60 Other: Voiding Method Toilet Toilet # Voids 2 - Labs CBC & Chem 7: 05/11/20 04:59 05/11/20 04:59 Labs: Abnormal Lab Results - Last 24 Hours (Table) 05/11/20 05/11/20 Range/Units 04:59 04:59 RBC 3.50 L (3.80-5.40) m/uL Hgb 11.3 L (11.4-16.0) gm/dL Est GFR (CKD-EPI)AfAm 48.8 L (60.0-200.0) Est GFR (CKD-EPI)NonAf 42.1 L (60.0-200.0) Microbiology - Last 24 Hours (Table) 05/05/20 15:00 Blood Culture - Preliminary Blood No Growth after 120 hours
[2020-05-11] MEDS: MONTELUKAST 10 MG TAB PO SCH (20:48)
[2020-05-12] MEDS: PIPERACILLIN-TAZOBACTAM 3.375 GM in SODIUM CHLORIDE 0.9% 100 ML IVPB SCH ×4 (00:04→23:22)
[2020-05-12] MEDS: IPRATROPIUM-ALBUTEROL 3 ML NEB INHALATION SCH ×4 (00:06→19:09)
--- NOTE | 2020-05-12 00:44 | PN ---
PROGRESS NOTE DATE OF SERVICE: 05/11/2020 This 70-year-old woman who was admitted with abdominal pain and bowel obstruction had surgery by Dr. Hooker. No chest pain. No palpitations. No fever. PHYSICAL EXAMINATION: Alert and oriented x3. Pulse 68, blood pressure 111/65, respiration 16, temperature 98.2, pulse ox 94% on room air. HEENT: Conjunctivae normal. NECK: No jugular venous distention. CARDIOVASCULAR: S1, S2 muffled. RESPIRATORY; Breath sounds diminished at the bases. No rhonchi, no crackles. ABDOMEN: Soft, status post surgery. LEGS: No edema, no swelling. NERVOUS SYSTEM: No focal deficits. LABS: WBC . ASSESSMENT: 1. Abdominal pain with partial small-bowel obstruction, status post exploratory laparotomy, lysis of adhesion. 2. Acute renal failure with acute prerenal acute tubular necrosis, present on admission, improved. 3. Hyponatremia. 4. Urinary tract infection, present on admission. 5. Elevated calcium secondary to dehydration, improved. 6. Increased WBC, possibly reactive. 7. Chronic obstructive pulmonary disease. 8. Gastroesophageal reflux disease. 9. Hypertension. 10.Hyperlipidemia. 11.History of gallbladder sepsis. 12.History of Joan-Erwin virus. 13.History of migraines. 14.History of palpitations. 15.History of chronic bronchitis. 16.History of diverticulosis. 17.History of appendectomy. 18.History of cholecystectomy. 19.History of degenerative joint disease. 20.History of motion sickness. 21.History of nicotine dependence, continued ongoing. 22.FULL CODE. RECOMMENDATIONS AND DISCUSSION: Recommend to continue current medications. Continue symptomatic treatment, DVT prophylaxis, incentive spirometry. The rest of the recommendations per Surgery. Continue to monitor. Further recommendations to follow. MMODL / IJN: [id number] /
[2020-05-12] MEDS: SYMBICORT 160-4.5 MCG INHALER INHALATION SCH ×2 (08:28→19:09)
[2020-05-12] MEDS: HYDROcodone/APAP 5-325MG 1 EACH TAB PO PRN ×2 (08:53→16:20)
[2020-05-12] MEDS: DOCUSATE 100 MG CAP PO SCH ×2 (09:37→20:39)
[2020-05-12] MEDS: LOSARTAN 25 MG TAB PO SCH (09:37)
[2020-05-12] MEDS: NICOTINE 14MG/24HR PATCH TRANSDERM SCH (09:38)
[2020-05-12] MEDS: METOPROLOL TARTRATE 12.5 MG TAB PO SCH ×2 (09:38→20:39)
[2020-05-12] MEDS: PANTOPRAZOLE 40 MG/10 ML VIAL IVP SCH ×2 (09:38→20:39)
[2020-05-12] MEDS: ENOXAPARIN 40 MG/0.4 ML SYRINGE SQ SCH (09:38)
--- NOTE | 2020-05-12 11:17 | P.PN ---
Subjective Progress Note Date: 05/12/20 CHIEF COMPLAINT: Small bowel obstruction HISTORY OF PRESENT ILLNESS: Small bowel obstruction secondary to internal hernia Status post exploratory laparotomy with lysis of adhesions. Patient is reporting abdominal pain. Her pain is better than yesterday. Pain is controlled with pain medications. She did have a bowel movement with a soapsuds enema. She denies any nausea or vomiting. She is afebrile. WBC is 6.0 hemoglobin is 11.3 PHYSICAL EXAM: VITAL SIGNS: Reviewed. GENERAL: Well-developed in no acute distress. HEENT: No sclera icterus. Extraocular movements grossly intact. Moist buccal mucosa. Head is atraumatic, normocephalic. ABDOMEN: Soft. Nondistended. Dressing clean dry and intact NEUROLOGIC: Alert and oriented. Cranial nerves II through XII grossly intact. ASSESSMENT: 1. Small bowel obstruction secondary to internal hernia Status post exploratory laparotomy with lysis of adhesions. PLAN: -advanced to a regular diet -Continue pain medications as needed -Encourage patient to ambulate and use incentive spirometer -DVT prophylaxis Lovenox -Anticipate discharge possibly tomorrow Physician Uniform Room Attendant note has been reviewed by physician. Signing provider agrees with the documented findings, assessment, and plan of care. Objective - Vital Signs Vital signs: Vital Signs Temp 98.6 F 05/12/20 05:00 Pulse 76 05/12/20 08:42 Resp 18 05/12/20 05:00 BP 145/75 05/12/20 05:00 Pulse Ox 97 05/12/20 05:00 Intake & Output 05/11/20 05/12/20 05/12/20 18:59 06:59 18:59 Intake Total 480 970 Balance 480 970 Weight 61.235 kg Intake: Intake, IV Titration 480 720 Amount Sodium Chloride 0.9% 1, 480 720 000 ml @ 60 mls/hr IV . [id number] [facility] Rx#:[id number] Oral 250 Other: Voiding Method Toilet Toilet Toilet # Voids 2 - Labs CBC & Chem 7: 05/11/20 04:59 05/11/20 04:59 Labs: Microbiology - Last 24 Hours (Table) 05/05/20 15:00 Blood Culture - Final Blood No Growth after 144 hours
--- NOTE | 2020-05-12 12:47 | P.PN ---
Subjective 70-year-old female is status post laparotomy for partial bowel obstruction. Patient is clinically doing well had a additional lysis. Patient probably will be discharged tomorrow. Able to tolerate diet. Constitutional: Denied any fatigue denied any fever. Cardio vascular: denied any chest pain, palpitations Gastrointestinal denied any nausea vomiting Pulmonary: Denied any shortness of breath cough Neurologic denied any new focal deficits All inpatient medications were reviewed and appropriate changes in these medications as dictated in the interval history and assessment and plan. Objective - Vital Signs Vital signs: Vital Signs Temp 98.2 F 05/12/20 11:49 Pulse 71 05/12/20 11:49 Resp 18 05/12/20 11:49 BP 134/67 05/12/20 11:49 Pulse Ox 94 L 05/12/20 11:49 Intake & Output 05/11/20 05/12/20 05/12/20 18:59 06:59 18:59 Intake Total 480 970 Balance 480 970 Weight 61.235 kg Intake: Intake, IV Titration 480 720 Amount Sodium Chloride 0.9% 1, 480 720 000 ml @ 60 mls/hr IV . [id number] [facility] Rx#:[id number] Oral 250 Other: Voiding Method Toilet Toilet Toilet # Voids 2 - Exam PHYSICAL EXAMINATION: GENERAL: The patient is alert and oriented x3, not in any acute distress. Well developed, well nourished. HEENT: Pupils are round and equally reacting to light. EOMI. No scleral icterus. No conjunctival pallor. Normocephalic, atraumatic. No pharyngeal erythema. No thyromegaly. CARDIOVASCULAR: S1 and S2 present. No murmurs, rubs, or gallops. PULMONARY: Chest is clear to auscultation, no wheezing or crackles. ABDOMEN: Soft, abdominal Binder in place does have good bowel sounds. MUSCULOSKELETAL: No joint swelling or deformity. EXTREMITIES: No cyanosis, clubbing, or pedal edema. NEUROLOGICAL: Gross neurological examination did not reveal any focal deficits. SKIN: No rashes. - Labs CBC & Chem 7: 05/11/20 04:59 05/11/20 04:59 Labs: Microbiology - Last 24 Hours (Table) 05/05/20 15:00 Blood Culture - Final Blood No Growth after 144 hours Assessment and Plan Plan: -Bowel obstruction partial status post laparotomy and a lysis of adhesions -acute renal failure related azotemia improved with IV fluids -Hypervolemic hyponatremia improved at this time -No evidence of urinary tract infection, patient is presently on Zosyn. I will leave the decision of continuation of these antibiotics per primary service. -COPD without any acute exacerbation -gastroesophageal reflux disease
[2020-05-12] MEDS: SODIUM CHLORIDE 0.9% 1,000 ML IV SCH (16:22)
[2020-05-12] MEDS: MONTELUKAST 10 MG TAB PO SCH (20:39)
[2020-05-13] MEDS: HYDROcodone/APAP 5-325MG 1 EACH TAB PO PRN ×2 (03:21→13:54)
[2020-05-13] MEDS: IPRATROPIUM-ALBUTEROL 3 ML NEB INHALATION SCH ×3 (03:42→12:01)
[2020-05-13] MEDS: SYMBICORT 160-4.5 MCG INHALER INHALATION SCH (07:21)
[2020-05-13] MEDS: LOSARTAN 25 MG TAB PO SCH (08:29)
[2020-05-13] MEDS: METOPROLOL TARTRATE 12.5 MG TAB PO SCH (08:29)
[2020-05-13] MEDS: DOCUSATE 100 MG CAP PO SCH (08:29)
[2020-05-13] MEDS: ENOXAPARIN 40 MG/0.4 ML SYRINGE SQ SCH (08:36)
[2020-05-13] MEDS: NICOTINE 14MG/24HR PATCH TRANSDERM SCH (08:37)
[2020-05-13] MEDS: PIPERACILLIN-TAZOBACTAM 3.375 GM in SODIUM CHLORIDE 0.9% 100 ML IVPB SCH (08:37)
[2020-05-13] MEDS: PANTOPRAZOLE 40 MG/10 ML VIAL IVP SCH (08:38)
[2020-05-13 11:11] VITALS: BP 156/65; TEMP 98.3
--- NOTE | 2020-05-13 13:12 | P.DS ---
Providers Date of admission: 05/05/20 14:13 Expected date of discharge: 05/13/20 Attending physician: Blas Hooker Consults: 05/05/20 14:22 Consult Physician Routine Consulting Provider: Jody Hills Consult Reason/Comments: bowel obstruction Do you want consulting provider notified?: Yes Primary care physician: Carol Townsend Hospital Course: Discharge diagnosis 1. Small bowel obstruction secondary to internal hernia Status post exploratory laparotomy with lysis of adhesions. Hospital course This is a 70-year-old female with a known past medical history of GERD, hyperte nsion, constipation, Diverticulosis, cholecystectomy, appendectomy, vaginal rectal fistula repair 2, hysterectomy, exploratory laparotomy for endometriosis. Patient presents to the emergency room with complaints of abdominal pain and bloating. She had computed tomography scan of abdomen and pelvis showing multiple dilated loops of small bowel measuring up to 3.1 cm with right lower quadrant transition zone noted. Findings were felt to reflect a complete or high-grade partial obstruction. Patient had NG tube inserted. Patient is status post exploratory laparotomy with lysis of adhesions For small bowel section secondary to internal hernia. Patient has tolerated advancement of diet. She is tolerating regular diet. She denies any nausea or vomiting. She is having bowel movements. She has been up and ambulating. Her pain is controlled. Patient is stable for discharge. Please refer to chart for any further details. Physician Lapping Machine Tender note has been reviewed by physician. Signing provider agrees with the documented findings, assessment, and plan of care. Patient Condition at Discharge: Stable Plan - Discharge Summary New Discharge Prescriptions: New Docusate [Colace] 100 mg PO BID #30 capsule HYDROcodone/APAP 7.5-325MG [Sc[place]ey 7.5-325] 1 tab PO Q4H PRN 3 Days #18 tab PRN Reason: Pain Continue Budesonide-Formot 160-4.5 Mcg [Symbicort 160-4.5 Mcg Inhaler] 2 puff INHALATION BID Discontinued Ibuprofen [Motrin] 400 mg PO Q6HR PRN PRN Reason: Pain No Action Pyridoxine [Vitamin B-6] 100 mg PO BID Cholecalciferol [Vitamin D3] 5,000 unit PO DAILY Losartan [Cozaar] 12.5 mg PO QAM Cyanocobalamin [Vitamin B-12] 1,000 mcg PO DAILY Ezetimibe [Zetia] 10 mg PO HS Famotidine [Pepcid] 20 mg PO BID Vitamin A Tab 2,400 mcg PO DAILY Acetaminophen [Tylenol Arthritis] 650 mg PO Q6HR PRN PRN Reason: Pain diphenhydrAMINE [Benadryl] 25 mg PO HS PRN PRN Reason: allergies Hydrochlorothiazide [hydroCHLOROthiazide] 12.5 mg PO QAM Magnesium 250 mg PO BID Melatonin 10 mg PO HS Metoprolol Tartrate [Lopressor] 25 mg PO BID Montelukast [Singulair] 10 mg PO HS Aspirin [Adult Low Dose Aspirin EC] 81 mg PO DAILY Albuterol Sulfate [Albuterol Sulfate Hfa] 1 puff PO RT-Q6H PRN PRN Reason: Shortness Of Breath Ipratropium-Albuterol Nebulize [Duoneb 0.5 mg-3 mg/3 ml Soln] 3 ml INHALATION RT-Q6H Discharge Medication List Cholecalciferol [Vitamin D3] 5,000 unit PO DAILY 08/06/15 [History] Losartan [Cozaar] 12.5 mg PO QAM 08/06/15 [History] Pyridoxine [Vitamin B-6] 100 mg PO BID 08/06/15 [History] Cyanocobalamin [Vitamin B-12] 1,000 mcg PO DAILY 04/21/17 [History] Ezetimibe [Zetia] 10 mg PO HS 04/21/17 [History] Famotidine [Pepcid] 20 mg PO BID 04/21/17 [History] Acetaminophen [Tylenol Arthritis] 650 mg PO Q6HR PRN 04/10/20 [History] Aspirin [Adult Low Dose Aspirin EC] 81 mg PO DAILY 04/10/20 [History] Budesonide-Formot 160-4.5 Mcg [Symbicort 160-4.5 Mcg Inhaler] 2 puff INHALATION BID 04/10/20 [History] Hydrochlorothiazide [hydroCHLOROthiazide] 12.5 mg PO QAM 04/10/20 [History] Magnesium 250 mg PO BID 04/10/20 [History] Melatonin 10 mg PO HS 04/10/20 [History] Metoprolol Tartrate [Lopressor] 25 mg PO BID 04/10/20 [History] Montelukast [Singulair] 10 mg PO HS 04/10/20 [History] Vitamin A Tab 2,400 mcg PO DAILY 04/10/20 [History] diphenhydrAMINE [Benadryl] 25 mg PO HS PRN 04/10/20 [History] Albuterol Sulfate [Albuterol Sulfate Hfa] 1 puff PO RT-Q6H PRN 05/05/20 [History] Ipratropium-Albuterol Nebulize [Duoneb 0.5 mg-3 mg/3 ml Soln] 3 ml INHALATION RT-Q6H 05/05/20 [History] Docusate [Colace] 100 mg PO BID #30 capsule 05/13/20 [Rx] HYDROcodone/APAP 7.5-325MG [Scobey 7.5-325] 1 tab PO Q4H PRN 3 Days #18 tab 05/13/20 [Rx] Follow up Appointment(s)/Referral(s): Carol Townsend MD [Primary Care Provider] - 1-2 days Blas Hooker MD [STAFF PHYSICIAN] - 1 Week Activity/Diet/Wound Care/Special Instructions: Medicine to complete [facility] - No driving while taking [place] No lifting over 10 pounds You may shower. No soaking or tub baths for 2 weeks Very light activity until you are reevaluated at your follow up appointment with your surgeon Discharge Disposition: HOME WITH HOME HEALTH SERVICES
[2020-05-13 13:26] VITALS: PULSE 92; RESP 16
--- NOTE | 2020-05-13 15:19 | P.PN ---
Subjective 70-year-old female is status post laparotomy for partial bowel obstruction. Patient is clinically doing well had a additional lysis. Patient probably will be discharged tomorrow. Able to tolerate diet. 05/13/2020 Patient is clinically doing well tolerating diet well did have bowel movements did review her discharge medication reconciliation appropriate changes were made patient can be discharged from medical perspective patient can be resumed on hydrochlorothiazide. Constitutional: Denied any fatigue denied any fever. Cardio vascular: denied any chest pain, palpitations Gastrointestinal denied any nausea vomiting Pulmonary: Denied any shortness of breath cough Neurologic denied any new focal deficits All inpatient medications were reviewed and appropriate changes in these medications as dictated in the interval history and assessment and plan. Objective - Vital Signs Vital signs: Vital Signs Temp 98.3 F 05/13/20 11:10 Pulse 92 05/13/20 12:51 Resp 16 05/13/20 12:51 BP 156/65 05/13/20 11:10 Pulse Ox 93 L 05/13/20 11:10 Intake & Output 05/12/20 05/13/20 05/13/20 18:59 06:59 18:59 Intake Total 237 200 Balance 237 200 Weight 61.235 kg Intake: Intake, IV Titration 200 Amount Piperacillin-Tazobactam 3 200 .375 gm In Sodium Chloride 0.9% 100 ml @ 25 mls/hr IVPB Q8HR [facility] Rx# :[id number] Oral 237 Other: Voiding Method Toilet Toilet Toilet # Voids 2 1 - Exam PHYSICAL EXAMINATION: GENERAL: The patient is alert and oriented x3, not in any acute distress. Well developed, well nourished. HEENT: Pupils are round and equally reacting to light. EOMI. No scleral icterus. No conjunctival pallor. Normocephalic, atraumatic. No pharyngeal erythema. No thyromegaly. CARDIOVASCULAR: S1 and S2 present. No murmurs, rubs, or gallops. PULMONARY: Chest is clear to auscultation, no wheezing or crackles. ABDOMEN: Soft, abdominal Binder in place does have good bowel sounds. MUSCULOSKELETAL: No joint swelling or deformity. EXTREMITIES: No cyanosis, clubbing, or pedal edema. NEUROLOGICAL: Gross neurological examination did not reveal any focal deficits. SKIN: No rashes. - Labs CBC & Chem 7: 05/11/20 04:59 05/11/20 04:59 Assessment and Plan Plan: -Bowel obstruction partial status post laparotomy and a lysis of adhesions -acute renal failure related azotemia improved with IV fluids -Hypervolemic hyponatremia improved at this time -No evidence of urinary tract infection, patient is presently on Zosyn. I will leave the decision of continuation of these antibiotics per primary service. -COPD without any acute exacerbation -gastroesophageal reflux disease -Hypertension: Patient blood pressure is bit elevated patient admits resumed on her thiazide patient is already receiving another 2 antidepressant medications. Patient can be discharged from medical perspective
== END 2020-05-13 16:12 | disposition home health service (06) | DRG 335 ==
LOC: EC 11:29 → 6NMEDSUR 14:13
PROVIDERS: ADMIT Hospitalist; ATTEND Surgery
PROC: 0D9670Z Drainage of Stomach with Drainage Device, Via Natural or Artificial Opening (ICD-10-PCS; 2020-05-05)
PROC: 0DN80ZZ Release Small Intestine, Open Approach (ICD-10-PCS; principal; 2020-05-06 07:30)
DX: K56.52 Intestinal adhesions [bands] with complete obstruction (principal); N17.0 Acute kidney failure with tubular necrosis; E87.1 Hypo-osmolality and hyponatremia; E78.5 Hyperlipidemia, unspecified; J44.9 Chronic obstructive pulmonary disease, unspecified; E86.0 Dehydration; I10 Essential (primary) hypertension; K21.9 Gastro-esophageal reflux disease without esophagitis; K44.9 Diaphragmatic hernia without obstruction or gangrene; K57.90 Diverticulosis of intestine, part unspecified, without perforation or abscess without bleeding; M19.90 Unspecified osteoarthritis, unspecified site; H91.90 Unspecified hearing loss, unspecified ear; H54.7 Unspecified visual loss; F17.210 Nicotine dependence, cigarettes, uncomplicated; Z71.6 Tobacco abuse counseling; Z79.82 Long term (current) use of aspirin; Z79.51 Long term (current) use of inhaled steroids; Z79.899 Other long term (current) drug therapy; Z86.19 Personal history of other infectious and parasitic diseases; Z90.49 Acquired absence of other specified parts of digestive tract; Z87.19 Personal history of other diseases of the digestive system; Z90.710 Acquired absence of both cervix and uterus; Z87.42 Personal history of other diseases of the female genital tract; Z87.440 Personal history of urinary (tract) infections; Z96.691 Finger-joint replacement of right hand; Z90.89 Acquired absence of other organs; Z98.42 Cataract extraction status, left eye; Z98.41 Cataract extraction status, right eye; Z87.39 Personal history of other diseases of the musculoskeletal system and connective tissue; Z86.69 Personal history of other diseases of the nervous system and sense organs; Z98.890 Other specified postprocedural states; Z91.048 Other nonmedicinal substance allergy status; Z88.8 Allergy status to other drugs, medicaments and biological substances; Z82.0 Family history of epilepsy and other diseases of the nervous system; Z82.49 Family history of ischemic heart disease and other diseases of the circulatory system; Z82.5 Family history of asthma and other chronic lower respiratory diseases; Z82.62 Family history of osteoporosis
CPT/HCPCS: 36415; 71045; 74177; 80048; 80053; 81001; 82150; 83605; 83690; 85025; 86850; 86900; 86901; 87040; 94640; 94760; 96361; 96365; 96375; 96376; 99285

== ENCOUNTER → 2020-11-26 | Outpatient (CLI) | payer MEDICARE ==
[2020-11-26 15:19] LABS: Basophils # (A) 0.1 k/uL (0-0.2); Basophils % (A) 1 %; Eosinophils # (A) 0.2 k/uL (0-0.7); Eosinophils % (A) 4 %; HGB 14.2 gm/dL (11.4-16.0); Lymphocytes # (A) 1.5 k/uL (1.0-4.8); Lymphocytes % (A) 22 %; MCH 32.4 pg (25.0-35.0); MCHC 33.8 g/dL (31.0-37.0); MCV 96.1 fL (80.0-100.0); Mean Platelet Volume 7.1; Monocytes # (A) 0.5 k/uL (0-1.0); Monocytes % (A) 7 %; Neutrophils # (A) 4.5 k/uL (1.3-7.7); Neutrophils % (A) 65 %; Platelet Count 306 k/uL (150-450); RBC 4.37 m/uL (3.80-5.40); RDW 12.9 % (11.5-15.5); WBC 6.8 k/uL (3.8-10.6)
== END | disposition home or self-care (01) ==
LOC: LABPAT 13:08
PROVIDERS: ATTEND Surgery
DX: Z01.818 Encounter for other preprocedural examination (principal); K43.0 Incisional hernia with obstruction, without gangrene
CPT/HCPCS: 36415; 84132; 85025; 93005

== ENCOUNTER 2020-12-02 09:02 | Inpatient (IN) | payer MEDICARE ==
[~2020-12-02 09:02] MED LIST changes: +ACETAMINOPHEN TAB 500 MG TAB PO PRN; +DEXAMETHASONE SOD PHOSPHATE 4 MG/ML 1 ML VIAL IV ONE; +HEPARIN SODIUM,PORCINE/PF 5,000 UNIT/0.5 ML SYRINGE SQ PRN; +LIDOCAINE 1% (10MG/ML) FOR IV START INTRADERMA PRN; +MIDAZOLAM 2 MG/2 ML VIAL IV PRN; +ONDANSETRON 4 MG/2 ML VIAL IVP ONE
--- NOTE | 2020-12-02 11:04 | P.GSHP ---
History of Present Illness H&P Date: 12/02/20 Chief Complaint: Incisional hernia This a 62-year-old female who presents today for laparoscopic robotic-assisted repair of incisional hernia. Past Medical History Past Medical History: COPD, GERD/Reflux, Hyperlipidemia, Hypertension Additional Past Medical History / Comment(s): SEPTIC WITH GALL BLADDER with PLEURAL EFFUSION 2006; ENLARGED LIVER/kidney infection 2006, [facility] [place], hx migraines, occ palpitations, chronic bronchitis, hiatal hernia, diverticulosis, lesion on liver, bowel obstruction 04/2020, elevated triglycerides, History of Any Multi-Drug Resistant Organisms: None Reported Past Surgical History: Adenoidectomy, Appendectomy, Bowel Resection, Cholecystectomy, Hysterectomy, Joint Replacement, Orthopedic Surgery, Tonsillectomy Additional Past Surgical History / Comment(s): EGD, COLONOSCOPY, colton cataracts, rt carpal tunnel x 2, rt thumb arthroplasty, cubital tunnel repair rt elbow, left knee arthroscopy, Past Anesthesia/Blood Transfusion Reactions: No Reported Reaction Additional Past Anesthesia/Blood Transfusion Reaction / Comment(s): NO PROBLEMS WITH PRIOR BLOOD TRANSFUSION Smoking Status: Current some day smoker - Past Family History Mother Family Medical History: No Reported History Additional Family Medical History / Comment(s): Alzheimers Father Family Medical History: Chest Pain / Angina, Hypertension Additional Family Medical History / Comment(s): PARKINSON,GOUT Sister(s) Family Medical History: Asthma, COPD Additional Family Medical History / Comment(s): Multiple sclerosis, passed a 50 Brother(s) Family Medical History: COPD, Hypertension Additional Family Medical History / Comment(s): GULLIAN BARRE Medications and Allergies Home Medications Medication Instructions Recorded Confirmed Type Cholecalciferol [Vitamin D3 (25 5,000 unit PO DAILY 08/06/15 11/30/20 History Mcg = 1000 Iu)] Losartan [Cozaar] 25 mg PO 1200 08/06/15 11/30/20 History Pyridoxine [Vitamin B-6] 100 mg PO BID 08/06/15 11/30/20 History Cyanocobalamin [Vitamin B-12] 1,000 mcg PO DAILY 04/21/17 11/30/20 History Ezetimibe [Zetia] 10 mg PO HS 04/21/17 11/30/20 History Famotidine [Pepcid] 20 mg PO BID 04/21/17 11/30/20 History Acetaminophen [Tylenol Arthritis] 650 mg PO Q6HR PRN 04/10/20 11/30/20 History Aspirin [Adult Low Dose Aspirin EC] 81 mg PO DAILY 04/10/20 11/30/20 History Budesonide-Formot 160-4.5 Mcg 2 puff INHALATION BID 04/10/20 11/30/20 History [Symbicort 160-4.5 Mcg Inhaler] Magnesium 250 mg PO BID 04/10/20 11/30/20 History Melatonin 10 mg PO HS PRN 04/10/20 11/30/20 History Metoprolol Tartrate [Lopressor] 25 mg PO BID 04/10/20 11/30/20 History Vitamin A Tab 2,400 mcg PO DAILY 04/10/20 11/30/20 History diphenhydrAMINE [Benadryl] 25 mg PO HS PRN 04/10/20 11/30/20 History Albuterol Sulfate [Albuterol 1 puff PO RT-Q6H PRN 05/05/20 11/30/20 History Sulfate Hfa] Docusate [Colace] 100 mg PO TID PRN 11/30/20 11/30/20 History Ibuprofen [Motrin Ib] 400 mg PO Q4HR 11/30/20 11/30/20 History Ipratropium-Albuterol Nebulize 3 ml IH TID PRN 11/30/20 11/30/20 History [Duoneb 0.5 mg-3 mg/3 ml Soln] Allergies Allergy/AdvReac Type Severity Reaction Status Date / Time amlodipine Allergy Swelling Verified 11/30/20 09:07 mercury (elemental) Allergy Unknown Verified 11/30/20 09:07 lisinopril AdvReac scratchy Verified 11/30/20 09:07 cough thimerosal AdvReac Abdominal Verified 11/30/20 09:07 Pain,fever,itchy & draining eyes Surgical - Exam Vital Signs Temp Pulse Resp BP Pulse Ox 98.3 F 73 20 167/73 94 L 12/02/20 09:25 12/02/20 09:25 12/02/20 09:25 12/02/20 09:25 12/02/20 09:25 - General well developed, well nourished, no distress - Eyes PERRL - ENT normal pinna - Neck no masses - Respiratory normal expansion - Cardiovascular Rhythm: regular - Abdomen 5 cm incisional hernia located above the umbilicus Abdomen: soft, non tender Assessment and Plan Assessment: Incisional hernia. We'll perform laparoscopic robotic-assisted repair.
[2020-12-02] MEDS ORDERED: MIDAZOLAM 2 MG/2 ML VIAL ONE (11:13)
[2020-12-02] MEDS ORDERED: fentaNYL (PF) 50 MCG/ML 2 ML AMP ONE (11:13)
[2020-12-02] MEDS ORDERED: NEOSTIGMINE 1 MG/ML 10 ML VIAL ONE (11:13)
[2020-12-02] MEDS ORDERED: ROCURONIUM 10 MG/ML (5 ML VIAL) IV ONE (11:13)
[2020-12-02] MEDS ORDERED: PROPOFOL 10 MG/ML 20 ML VIAL IV ONE (11:13)
[2020-12-02] MEDS ORDERED: PHENYLEPHRINE-0.9% NACL SYG 1,000 MCG/10 ML SYRINGE ONE (11:13)
[2020-12-02] MEDS ORDERED: LIDOCAINE 1% INJ 10MG/ML (20 ML MDV) ONE (11:13)
[2020-12-02] MEDS ORDERED: SUCCINYLCHOLINE CHLORIDE 100 MG/5 ML SYR IV ONE (11:13)
[2020-12-02] MEDS ORDERED: KETAMINE 10 MG/ML 20 ML VIAL ONE (11:13)
[2020-12-02] MEDS ORDERED: GLYCOPYRROLATE 0.2 MG/ML 2 ML VIAL ONE (11:13)
[2020-12-02] MEDS ORDERED: BUPIVACAINE (PF) 0.5% 30 ML VIAL SQ ONE (11:45)
[2020-12-02] MEDS ORDERED: LACTATED RINGERS 1,000 ML IV ONE ×5 (11:53→15:25)
--- NOTE | 2020-12-02 13:13 | P.OP ---
Date of Procedure: 12/02/20 Preoperative Diagnosis: Incisional hernia Postoperative Diagnosis: Incisional hernia Procedure(s) Performed: Laparoscopic robot-assisted. Incisional hernia Laparoscopic lysis of adhesions Anesthesia: TYE Surgeon: Blas Hooker Estimated Blood Loss (ml): 10 Pathology: none sent Condition: stable Disposition: PACU Description of Procedure: The patient was placed on the operating table in the supine position. He received general anesthesia. His abdomen was prepped and draped usual fashion. Using a 5 mm optical trocar under direct visualization the peritoneal cavity was entered in the left upper quadrant. The abdomen was then insufflated. The laparoscope was placed back into the perineal cavity. Next a 8 mm robotic trocar was placed in the left lower quadrant and a 12 mm robotic trocar was placed in the left lateral position. The original 5 mm trocar was exchanged for a 8 mm robotic trocar. The patient's placed in the left side up position. And the patient was docked to the robot. There were loops of small bowel adhesed the antrum abdominal wall. These were lysed with sharp dissection. Approximately 20 minutes of operative time used to lyse adhesions. The incisional hernia was visualized. Using hook cautery the peritoneum over the incisional hernia was excised. The fascial opening was repaired using 0V LOC suture. Next a piece of 11 cm round ventral light ST mesh was placed into the. Cavity and secured with 2 OV lock suture. The patient was undocked the robot. The needles were retrieved. The fascia of the 12 mm trocar site was closed with 0 Ethibond suture. Skin was closed interrupted 3-0 Monocryl suture. Dermabond dressings was applied. Patient tolerated procedure well and was sent to recovery room stable condition.
[2020-12-02] MEDS: HYDROmorphone 0.5 MG/0.5 ML SYRINGE IVP PRN ×4 (13:26→22:20)
[2020-12-02] MEDS ORDERED: hydrALAZINE HCL 20 MG/ML 1 ML VIAL IVP ONE (13:55)
[2020-12-02] MEDS ORDERED: ONDANSETRON 4 MG/2 ML VIAL IVP ONE (14:20)
[2020-12-02] MEDS ORDERED: ONDANSETRON 4 MG/2 ML VIAL ONE (14:31)
[2020-12-02] MEDS ORDERED: NALOXONE 0.4 MG/ML 1 ML VIAL IV PRN (15:25)
[2020-12-02] MEDS: ONDANSETRON 4 MG/2 ML VIAL IVP PRN (19:08)
[2020-12-02] MEDS ORDERED: IPRATROPIUM-ALBUTEROL 3 ML NEB IH PRN (19:47)
[2020-12-02 20:26] LABS: Basophils % (A) 0 %; Eosinophils # (A) 0.2 k/uL (0-0.7); Eosinophils % (A) 1 %; HCT 43.4 % (34.0-46.0); HGB 14.7 gm/dL (11.4-16.0); Lymphocytes # (A) 1.2 k/uL (1.0-4.8); Lymphocytes % (A) 7 %; MCH 32.3 pg (25.0-35.0); MCHC 33.8 g/dL (31.0-37.0); MCV 95.6 fL (80.0-100.0); Mean Platelet Volume 6.6; Monocytes # (A) 0.8 k/uL (0-1.0); Monocytes % (A) 5 %; Neutrophils # (A) 14.7 k/uL (1.3-7.7); Neutrophils % (A) 87 %; Platelet Count 339 k/uL (150-450); RBC 4.54 m/uL (3.80-5.40); RDW 12.8 % (11.5-15.5); WBC 16.8 k/uL (3.8-10.6)
[2020-12-02 20:37] LABS: Calcium 8.9 mg/dL (8.4-10.2); Potassium 4.6 mmol/L (3.5-5.1); Total Bilirubin 0.4 mg/dL (0.2-1.3); Total Protein 6.9 g/dL (6.3-8.2)
[2020-12-02] MEDS: SYMBICORT 160-4.5 MCG INHALER INHALATION SCH (21:25)
[2020-12-02] MEDS: MAGNESIUM OXIDE 400 MG TAB PO SCH (21:57)
[2020-12-02] MEDS: METOPROLOL TARTRATE 25 MG TAB PO SCH (21:57)
[2020-12-02] MEDS: DOCUSATE 100 MG CAP PO SCH (21:57)
[2020-12-02] MEDS: PANTOPRAZOLE 40 MG/10 ML VIAL IVP SCH (21:58)
--- NOTE | 2020-12-02 22:40 | CONS ---
CONSULTATION DATE OF SERVICE: 12/02/2020 REASON FOR CONSULTATION: Advice regarding COPD and other multiple medical issues, requested by Dr. Hooker. HISTORY OF PRESENT ILLNESS: This 70-year-old woman with past medical history of COPD, GERD, hypertension, hyperlipidemia, history of septic gallbladder, being followed by Dr. Townsend in the outpatient setting, underwent laparoscopic robotic assisted incisional hernia repair by Dr. Hooker. Postoperatively patient is slightly drowsy, so the patient is being kept in the hospital. There is no history of fever, rigors. No history of headache, loss of consciousness. The patient is slightly drowsy at this time but able to answer the questions. PAST MEDICAL HISTORY: History of COPD, GERD, hypertension, hyperlipidemia. MEDICATIONS: Home medications are: Benadryl, vitamin A, vitamin B6, Lopressor, melatonin, magnesium, losartan, DuoNeb, Motrin, Pepcid, Zetia, Colace, vitamin B2, vitamin D3, Symbicort, aspirin, albuterol, Tylenol, oxycodone, Motrin, Colace, Tylenol. ALLERGIES: AMLODIPINE, MERCURY, LISINOPRIL. THERMASOL. FAMILY HISTORY: History of dementia in the family. SOCIAL HISTORY: History of smoking on daily basis currently. No history of substance abuse. REVIEW OF SYSTEMS: ENT: No diminished vision. No diminished hearing. Cardiovascular: No angina. Respiration as mentioned earlier. GI as mentioned earlier. : No dysuria. NERVOUS SYSTEM: As mentioned earlier. ALLERGY/IMMUNOLOGY: No asthma or hayfever. MUSCULOSKELETAL as mentioned earlier. HEMATOLOGY/ONCOLOGY: No history of anemia. ENDOCRINE: No history of diabetes or hypothyroidism. CONSTITUTIONAL: As mentioned earlier. DERMATOLOGY: Negative. RHEUMATOLOGY: Negative. PSYCHIATRIC: As mentioned earlier. PHYSICAL EXAMINATION: Alert and oriented times three. Pulse 78, blood pressure 153/77, respirations 16, temperature normal, pulse ox 94% on 2 L. HEENT: Conjunctivae normal. NECK: No JVD. CARDIOVASCULAR: S1, S2 muffled. RESPIRATION: Breath sounds diminished in the bases. A few scattered rhonchi. No crackles. ABDOMEN: Soft, status post surgery. LEGS: No edema. No swelling. NERVOUS SYSTEM: Higher functions as mentioned earlier. Moves all 4 limbs. Slightly drowsy as mentioned earlier. LYMPHATICS: No lymph nodes palpable in the neck, axillae or groin. SKIN: No ulcer, no rash and no bleeding. JOINTS: No active deforming arthropathy. LABS: At this time shows preop labs: Hematology is normal. Chemistry is also within normal limits except AST 40, cholesterol 272, which was done in 2016. ASSESSMENT: 1. Status post laparoscopic robotic assisted incisional hernia and lysis of adhesions. 2. Chronic obstructive pulmonary disease. 3. Gastroesophageal reflux disease. 4. Hypertension. 5. Hyperlipidemia. 6. History of gallbladder and sepsis. 7. History of pleural effusion. 8. History of virus infection. 9. History of migraine. 10.History of chronic bronchitis. 11.History of bowel obstruction. 12.History of adenoidectomy. 13.History of bowel resection. 14.History of cholecystectomy. 15.History of tonsillectomy. 16.History of anxiety. 17.History of continued ongoing nicotine dependence. 18.Mild protein calorie malnutrition with body mass index of 18.7. 19.FULL CODE. RECOMMENDATIONS AND DISCUSSION: In this 70-year-old woman who presented with multiple complex medical issues, we will monitor the patient closely, continue the current medications, management and symptomatic treatment. I recommend resume the home medications. Avoid pain medications. Basic labs. Incentive spirometry, DVT prophylaxis. We will follow the patient closely. The patient may be asked to follow up with Dr. Townsend closely after discharge. Thank you Dr. Hooker for letting us participate in the care of this patient. MMWOLFL / MARISABELN: [id number] /
[2020-12-03] MEDS: ONDANSETRON 4 MG/2 ML VIAL IVP PRN ×3 (00:46→12:23)
[2020-12-03] MEDS: traMADol 50 MG TAB PO PRN ×3 (00:47→16:10)
[2020-12-03] MEDS: HYDROmorphone 0.5 MG/0.5 ML SYRINGE IVP PRN ×3 (01:27→10:27)
[2020-12-03] MEDS: SYMBICORT 160-4.5 MCG INHALER INHALATION SCH ×2 (07:56→21:19)
[2020-12-03] MEDS: METOPROLOL TARTRATE 25 MG TAB PO SCH ×2 (09:39→21:01)
[2020-12-03] MEDS: PANTOPRAZOLE 40 MG/10 ML VIAL IVP SCH (09:39)
[2020-12-03] MEDS: DOCUSATE 100 MG CAP PO SCH ×2 (09:39→21:01)
[2020-12-03] MEDS: ENOXAPARIN 40 MG/0.4 ML SYRINGE SQ SCH (09:39)
[2020-12-03] MEDS: MAGNESIUM OXIDE 400 MG TAB PO SCH ×2 (09:40→21:01)
[2020-12-03 10:13] VITALS: BMI 18.7
[2020-12-03] MEDS: IPRATROPIUM-ALBUTEROL 3 ML NEB INHALATION SCH ×3 (11:59→21:19)
--- NOTE | 2020-12-03 12:23 | XR ---
EXAMINATION TYPE: XR chest 2V DATE OF EXAM: 12/03/2020 COMPARISON: 05/08/2020 HISTORY: Shortness of breath TECHNIQUE: Frontal and lateral views of the chest are obtained. FINDINGS: Scattered senescent parenchymal changes noted. Hyperinflation compatible with COPD. Patchy density right suprahilar region which may reflect underlying infiltrate. There is air along th e right lateral chest wall. No sizable pneumothorax is seen with certainty. Heart size is stable. Mediastinal structures are stable and grossly unremarkable. No evidence for hilar prominence. Degenerative changes dorsal spine. IMPRESSION: 1. There is air along the right lateral chest wall. No sizable pneumothorax is seen with certainty. 2.Patchy density right suprahilar region which may reflect underlying infiltrate.
[2020-12-03] MEDS: LOSARTAN 25 MG TAB PO SCH (12:28)
[2020-12-03] MEDS: HYDROcodone/APAP 5-325MG 1 EACH TAB PO PRN ×2 (13:25→19:05)
--- NOTE | 2020-12-03 15:30 | P.PN ---
Subjective Progress Note Date: 12/03/20 CHIEF COMPLAINT: Incisional hernia HISTORY OF PRESENT ILLNESS: Status post laparoscopic robotic-assisted incisional hernia repair and laparoscopic lysis of adhesions. Postop day #1. Patient this morning had complained that her pain was not controlled. Her pain this afternoon is better controlled. She denies any nausea or vomiting. Denies any bowel movement or passing of gas. Afebrile Her white count was 16.8. She's going to be started on IV antibiotics. She had been coughing and wheezing. Tn dicine service did order a chest x-ray that shows air along the right lateral chest wall. No sizable pneumothorax is seen with certainty. Patchy density right suprahilar region which may reflect underlying infiltrate. They ordered nebulizer treatments and incentive spirometer. Patient seen and examined with Dr. perez PHYSICAL EXAM: VITAL SIGNS: Reviewed. GENERAL: Well-developed in no acute distress. HEENT: No sclera icterus. Extraocular movements grossly intact. Moist buccal mucosa. Head is atraumatic, normocephalic. ABDOMEN: Soft. Nondistended. Incision site clean dry and intact NEUROLOGIC: Alert and oriented. Cranial nerves II through XII grossly intact. ASSESSMENT: 1. Incisional hernia status post laparoscopic robotic-assisted incisional hernia repair and laparoscopic lysis of adhesions PLAN: -Add antibiotics for leukocytosis -Repeat labs in a.m. -Continue regular diet -Continue pain medication as needed -Encouraged patient to use incentive spirometer -Encouraged patient to ambulate -GI prophylaxis Protonix and DVT prophylaxis Lovenox Physician Technical Supervisor note has been reviewed by physician. Signing provider agrees with the documented findings, assessment, and plan of care. Objective - Vital Signs Vital signs: Vital Signs Temp 98.4 F 12/03/20 14:22 Pulse 71 12/03/20 14:22 Resp 17 12/03/20 14:22 BP 132/74 12/03/20 14:22 Pulse Ox 93 L 12/03/20 14:22 Intake & Output 12/02/20 12/03/20 12/03/20 18:59 06:59 18:59 Intake Total 2650 Output Total 610 800 400 Balance 2040 -800 -400 Weight 55.8 kg 55.8 kg 55.8 kg Intake: IV 2650 Output: Urine 600 800 400 Estimated Blood Loss 10 Other: Voiding Method Toilet # Voids 1 1 1 - Labs CBC & Chem 7: 12/02/20 20:02 12/02/20 20:02 Labs: Abnormal Lab Results - Last 24 Hours (Table) 12/02/20 12/02/20 Range/Units 20:02 20:02 WBC 16.8 H (3.8-10.6) k/uL Neutrophils # 14.7 H (1.3-7.7) k/uL Sodium 133 L (137-145) mmol/L BUN 18 H (7-17) mg/dL Albumin 3.0 L (3.5-5.0) g/dL
[2020-12-03] MEDS: PIPERACILLIN-TAZOBACTAM 3.375 GM in SODIUM CHLORIDE 0.9% 100 ML IVPB SCH ×2 (16:01→23:59)
--- NOTE | 2020-12-03 18:11 | PN ---
PROGRESS NOTE DATE OF SERVICE: 12/03/2020 This 70-year-old woman who underwent laparoscopic repair of incisional hernia and lysis of adhesions is improving significantly. No chest pain. No palpitations. No fever. The patient has some features of COPD. The chest x-ray showed no evidence of pneumonia, but some subcutaneous emphysema in the right side suggestive of caused by insufflation. Increased bronchovascular markings are noted. No chest pain. No palpitations. No fever. PHYSICAL EXAMINATION: Alert and oriented x3. Pulse 71, blood pressure 132/74, respirations 17, temperature 98.0, pulse ox 93% on room air. HEENT: Conjunctivae normal. NECK: No jugular venous distention. CARDIOVASCULAR SYSTEM: S1, S2 muffled. RESPIRATORY SYSTEM: Breath sounds diminished at the bases. A few scattered rhonchi. ABDOMEN: Soft. Status post surgery. LEGS: No edema. No swelling. NERVOUS SYSTEM: No focal deficit. LABS: WBC 16.8, sodium 133. ASSESSMENT: 1. Status post laparoscopic robotic-assisted incisional hernia and lysis of adhesions. 2. Chronic obstructive pulmonary disease. 3. Right minimal subcutaneous emphysema secondary to insufflation. 4. Gastroesophageal reflux disease. 5. Hypertension. 6. Hyperlipidemia. 7. History of gallbladder sepsis. 8. History of pleural effusion. 9. History of migraine. 10.History of chronic bronchitis. 11.History of bowel obstruction. 12.History of adenoidectomy. 13.History of bowel resection. 14.History of cholecystectomy. 15.History of tonsillectomy. 16.History of anxiety. 17.History of continued ongoing nicotine dependence. 18.Mild protein-calorie malnutrition. BMI of 18.7. 19.FULL CODE. RECOMMENDATIONS AND DISCUSSION: I recommend to continue current medications, continue with the monitoring, symptomatic treatment. Discussed with Dr. Hooker. Bronchodilators, incentive spirometry. Recommend close followup with primary physician in the outpatient setting after discharge. MMODL / IJN: [id number] /
[2020-12-03] MEDS: SODIUM CHLORIDE 0.9% 1,000 ML IV SCH (19:09)
[2020-12-03] MEDS: PANTOPRAZOLE 40 MG TABLET PO SCH (19:09)
[2020-12-04] MEDS: HYDROcodone/APAP 5-325MG 1 EACH TAB PO PRN ×3 (02:48→20:20)
[2020-12-04 06:13] LABS: Basophils # (A) 0.1 k/uL (0-0.2); Basophils % (A) 1 %; Eosinophils # (A) 0.1 k/uL (0-0.7); Eosinophils % (A) 1 %; HGB 13.5 gm/dL (11.4-16.0); Lymphocytes # (A) 1.6 k/uL (1.0-4.8); Lymphocytes % (A) 17 %; MCH 32.3 pg (25.0-35.0); MCHC 33.7 g/dL (31.0-37.0); MCV 95.8 fL (80.0-100.0); Mean Platelet Volume 6.5; Monocytes # (A) 0.7 k/uL (0-1.0); Monocytes % (A) 8 %; Neutrophils # (A) 6.9 k/uL (1.3-7.7); Neutrophils % (A) 73 %; Platelet Count 258 k/uL (150-450); RBC 4.17 m/uL (3.80-5.40); RDW 12.8 % (11.5-15.5); WBC 9.4 k/uL (3.8-10.6)
[2020-12-04] MEDS: PANTOPRAZOLE 40 MG TABLET PO SCH ×2 (06:30→18:00)
[2020-12-04 06:48] LABS: Calcium 9.6 mg/dL (8.4-10.2); Potassium 5.4 mmol/L (3.5-5.1)
[2020-12-04] MEDS: IPRATROPIUM-ALBUTEROL 3 ML NEB INHALATION SCH ×4 (07:20→21:22)
[2020-12-04] MEDS: SYMBICORT 160-4.5 MCG INHALER INHALATION SCH ×2 (07:21→21:22)
[2020-12-04] MEDS: PIPERACILLIN-TAZOBACTAM 3.375 GM in SODIUM CHLORIDE 0.9% 100 ML IVPB SCH ×3 (07:48→23:59)
[2020-12-04] MEDS: MAGNESIUM OXIDE 400 MG TAB PO SCH ×2 (08:29→20:17)
[2020-12-04] MEDS: ENOXAPARIN 40 MG/0.4 ML SYRINGE SQ SCH (08:29)
[2020-12-04] MEDS: METOPROLOL TARTRATE 25 MG TAB PO SCH ×2 (08:29→20:17)
[2020-12-04] MEDS: DOCUSATE 100 MG CAP PO SCH ×2 (08:29→20:17)
--- NOTE | 2020-12-04 10:12 | FL ---
Fluoroscopy HISTORY: Foreign body 4 seconds fluoroscopy time supplied to the referring clinician. 1 intraoperative C-arm images docume nt the procedure. See dictated report from general surgery.
[2020-12-04] MEDS: SODIUM CHLORIDE 0.9% 1,000 ML IV SCH (11:22)
[2020-12-04] MEDS: LOSARTAN 25 MG TAB PO SCH (11:47)
[2020-12-04] MEDS: ONDANSETRON 4 MG/2 ML VIAL IVP PRN (12:57)
--- NOTE | 2020-12-04 14:46 | P.PN ---
Subjective Progress Note Date: 12/04/20 CHIEF COMPLAINT: Incisional hernia HISTORY OF PRESENT ILLNESS: Status post laparoscopic robotic-assisted incisional hernia repair and laparoscopic lysis of adhesions. Postop day #2. Patient's pain is better controlled today. She denies any nausea or vomiting. She is eating small amount of her regular food. She is passing gas. She is afebrile. Antibiotics were he has added yesterday due to leukocytosis. Leukocytosis has resolved. Patient did also get a dose of dexamethasone which could contribute to the elevated white count. Medicine service is recommending that patient stays 1 more day and has repeat chest x-ray in a.m. WBC 9.4 hemoglobin 13.5 platelets 258 potassium 5.4 Patient seen and examined with Dr. perez PHYSICAL EXAM: VITAL SIGNS: Reviewed. GENERAL: Well-developed in no acute distress. HEENT: No sclera icterus. Extraocular movements grossly intact. Moist buccal mucosa. Head is atraumatic, normocephalic. ABDOMEN: Soft. Nondistended. Incision site clean dry and intact NEUROLOGIC: Alert and oriented. Cranial nerves II through XII grossly intact. ASSESSMENT: 1. Incisional hernia status post laparoscopic robotic-assisted incisional hernia repair and laparoscopic lysis of adhesions PLAN: -Continue regular diet -Continue pain medication as needed -Encouraged patient to use incentive spirometer -Encouraged patient to ambulate -Hyperkalemia we will repeat labs in a.m. -GI prophylaxis Protonix and DVT prophylaxis Lovenox Physician Hang Gliding Instructor note has been reviewed by physician. Signing provider agrees with the documented findings, assessment, and plan of care. Objective - Vital Signs Vital signs: Vital Signs Temp 97.5 F L 12/04/20 14:00 Pulse 63 12/04/20 14:00 Resp 16 12/04/20 14:00 BP 146/77 12/04/20 14:00 Pulse Ox 91 L 12/04/20 14:00 Intake & Output 12/03/20 12/04/20 12/04/20 18:59 06:59 18:59 Intake Total 600 500 Output Total 400 Balance -400 600 500 Weight 55.8 kg Intake: Intake, IV Titration 600 Amount Piperacillin-Tazobactam 3 100 .375 gm In Sodium Chloride 0.9% 100 ml @ 25 mls/hr IVPB Q8HR [facility] Rx# :[id number] Sodium Chloride 0.9% 1, 500 000 ml @ 50 mls/hr IV . Q20H [facility] Rx#:[id number] Oral 500 Output: Urine 400 Other: # Voids 1 3 1 - Labs CBC & Chem 7: 12/04/20 05:18 12/04/20 05:18 Labs: Abnormal Lab Results - Last 24 Hours (Table) 12/04/20 Range/Units 05:18 Potassium 5.4 H (3.5-5.1) mmol/L Carbon Dioxide 31 H (22-30) mmol/L
--- NOTE | 2020-12-04 15:53 | PN ---
PROGRESS NOTE DATE OF SERVICE: 12/04/2020 This 70-year-old woman who was admitted after laparoscopic-assisted incisional hernia repair and lysis of adhesions is being closely monitored. Patient has some cough and sputum and COPD also. No chest pain. No palpitations. No fever. PHYSICAL EXAMINATION: Alert and oriented x3. Pulse 78, blood pressure 150/63, respiration 20, temperature 98.3, pulse ox 93% on room air. HEENT: Conjunctivae normal. NECK: No jugular venous distention. CARDIOVASCULAR SYSTEM: S1, S2 muffled. RESPIRATORY SYSTEM: Breath sounds diminished at the bases. A few scattered rhonchi and crackles. ABDOMEN: Soft. Status post surgery. LEGS: No edema. No swelling. NERVOUS SYSTEM: No focal deficit. LABS: WBC 9.5, sodium 137, potassium 5.4. ASSESSMENT: 1. Status post laparoscopic robotic-assisted incisional hernia repair and lysis of adhesions. 2. Chronic obstructive pulmonary disease. 3. Right minimal subcutaneous emphysema secondary to insufflation. 4. Gastroesophageal reflux disease. 5. Hypertension. 6. Hyperlipidemia. 7. History of gallbladder sepsis. 8. History of pleural effusion. 9. History of migraines. 10.History of chronic bronchitis. 11.History of bowel obstruction. 12.History of adenoidectomy. 13.History of bowel resection. 14.History of cholecystectomy. 15.History of tonsillectomy. 16.History of anxiety. 17.History of continued ongoing nicotine dependence. 18.Mild protein-calorie malnutrition. BMI 18.7. 19.FULL CODE. RECOMMENDATIONS AND DISCUSSION: I recommend to continue current medications, continue with the monitoring, symptomatic treatment. Continue with empiric antibiotics. Otherwise, will repeat a chest x-ray tomorrow and IV fluids can be reduced if adequate p.o. intake. Otherwise, continue with the bronchodilators. Further recommendations to follow. Continue with incentive spirometry and DVT prophylaxis. MMODL / IJN: [id number] /
[2020-12-05] MEDS: ONDANSETRON 4 MG/2 ML VIAL IVP PRN ×3 (01:16→12:12)
[2020-12-05] MEDS: HYDROmorphone 0.5 MG/0.5 ML SYRINGE IVP PRN ×3 (02:37→16:06)
[2020-12-05 06:23] LABS: Basophils # (A) 0.1 k/uL (0-0.2); Basophils % (A) 1 %; Eosinophils # (A) 0.1 k/uL (0-0.7); Eosinophils % (A) 1 %; HCT 43.8 % (34.0-46.0); HGB 14.9 gm/dL (11.4-16.0); Lymphocytes % (A) 11 %; MCH 32.2 pg (25.0-35.0); MCV 94.8 fL (80.0-100.0); Mean Platelet Volume 6.4; Monocytes # (A) 0.5 k/uL (0-1.0); Monocytes % (A) 5 %; Neutrophils % (A) 81 %; Platelet Count 243 k/uL (150-450); RBC 4.62 m/uL (3.80-5.40); RDW 12.6 % (11.5-15.5); WBC 9.8 k/uL (3.8-10.6)
[2020-12-05 06:40] LABS: Calcium 9.6 mg/dL (8.4-10.2); Potassium 4.4 mmol/L (3.5-5.1)
--- NOTE | 2020-12-05 07:45 | XR ---
EXAMINATION TYPE: XR chest 1V portable DATE OF EXAM: 12/05/2020 COMPARISON: 12/03/2020 HISTORY: Cough TECHNIQUE: Single frontal view of the chest is obtained. FINDINGS: Diffuse hyperexpansion soft tissue artifact. Nipple shadow. No sizable pneumothorax. Subcu taneous atherosclerotic change. Interstitial pattern has improved. IMPRESSION: 1. Stable small amount of subcutaneous air along the right upper chest with no definite sizable pneum othorax. 2. COPD correlate for bronchitis or interstitial pneumonitis.
[2020-12-05] MEDS: PANTOPRAZOLE 40 MG TABLET PO SCH ×2 (08:40→17:14)
[2020-12-05] MEDS: PIPERACILLIN-TAZOBACTAM 3.375 GM in SODIUM CHLORIDE 0.9% 100 ML IVPB SCH ×3 (08:53→23:28)
[2020-12-05] MEDS: DOCUSATE 100 MG CAP PO SCH ×2 (08:57→20:25)
[2020-12-05] MEDS: ENOXAPARIN 40 MG/0.4 ML SYRINGE SQ SCH (08:57)
[2020-12-05] MEDS: METOCLOPRAMIDE 5 MG/ML 2 ML VIAL IVP PRN ×2 (08:57→14:37)
[2020-12-05] MEDS: METOPROLOL TARTRATE 25 MG TAB PO SCH ×2 (08:57→20:24)
[2020-12-05] MEDS: FAMOTIDINE 20 MG TAB PO SCH ×2 (08:57→20:25)
[2020-12-05] MEDS: SYMBICORT 160-4.5 MCG INHALER INHALATION SCH ×2 (09:06→19:54)
[2020-12-05] MEDS: IPRATROPIUM-ALBUTEROL 3 ML NEB INHALATION SCH ×4 (09:06→19:53)
--- NOTE | 2020-12-05 09:08 | P.PN ---
Subjective Progress Note Date: 12/05/20 Principal diagnosis: Incisional hernia Patient says her pain is gradually improving. Tolerating diet. Not ambulating much. She is afebrile. Objective - Vital Signs Vital signs: Vital Signs Temp 97.9 F 12/05/20 09:04 Pulse 82 12/05/20 09:04 Resp 20 12/05/20 09:04 BP 186/94 12/05/20 09:04 Pulse Ox 91 L 12/05/20 09:04 Intake & Output 12/04/20 12/05/20 12/05/20 18:59 06:59 18:59 Intake Total 740 Balance 740 Intake: Oral 740 Other: Voiding Method Toilet # Voids 1 1 - Exam Abdomen: Soft, nondistended, incisions clean and dry, mild tenderness - Labs CBC & Chem 7: 12/05/20 06:01 12/05/20 06:01 Labs: Abnormal Lab Results - Last 24 Hours (Table) 12/05/20 12/05/20 Range/Units 06:01 06:01 Neutrophils # 8.0 H (1.3-7.7) k/uL Glucose 120 H (74-99) mg/dL Assessment and Plan (1) Small bowel obstruction Narrative/Plan: Patient seems to be gradually improving. Continue increasing activity. Possible discharge later today Current Visit: No Status: Acute Code(s): K56.609 - UNSP INTESTNL OBST, UNSP TO PARTIAL VERSUS COMPLETE OBST SNOMED Code(s): 539638626
[2020-12-05] MEDS: MAGNESIUM OXIDE 400 MG TAB PO SCH ×2 (09:12→20:25)
[2020-12-05] MEDS: SODIUM CHLORIDE 0.9% 1,000 ML IV SCH (09:13)
[2020-12-05] MEDS: LOSARTAN 25 MG TAB PO SCH (12:13)
--- NOTE | 2020-12-05 18:50 | PN ---
PROGRESS NOTE DATE OF SERVICE: 12/05/2020 This 70-year-old woman who was admitted after laparoscopic assisted incisional hernia repair, also had COPD. The patient has right minimal subcutaneous emphysema which is stable at present and new. The patient also had COPD. The chest x-ray is rather stable at this time. The patient started on broad-spectrum IV antibiotics. No definite evidence of pneumonia has been seen. No chest pain. No palpitations. No fever. PHYSICAL EXAMINATION: Alert and oriented times three. Pulse 81, blood pressure 130/84, respiration 18, temperature 98.2, pulse ox 94% on room air. HEENT: Conjunctivae normal. NECK: No JVD. CARDIOVASCULAR: S1, S2, muffled. No S3, no S4, RESPIRATORY: Diminished breath sounds at the bases. A few scattered rhonchi. ABDOMEN: Soft. Nervous System: No focal deficits. LABS: WBC 9, hemoglobin 14.9 sodium 136, potassium 4.4. ASSESSMENT: 1. Status post laparoscopic robotic assisted incisional hernia repair, lysis of adhesions. 2. Chronic obstructive pulmonary disease, acute exacerbation. 3. Right minimal subcutaneous emphysema secondary to insufflation, stable. 4. Gastroesophageal reflux disease. 5. Hypertension. 6. Hyperlipidemia. 7. Possible acute purulent tracheobronchitis. 8. Pneumonia seems unlikely. 9. History of gallbladder sepsis. 10.History of pleural effusion. 11.History of migraine. 12.History of chronic bronchitis. 13.History of bowel resection. 14.History of adenoidectomy. 15.History of bowel obstruction. 16.History of cholecystectomy. 17.History of tonsillectomy. 18.Anxiety. 19.History of continued ongoing nicotine dependence. 20.Mild protein calorie malnutrition, BMI 18.7. 21.FULL CODE. RECOMMENDATIONS AND DISCUSSION: Continue current management. Continue the bronchodilators. I would also recommend continue the antibiotics. Otherwise, incentive spirometry. Closely follow with surgery. Further recommendations to follow. MMODL / IJN: [id number] /
[2020-12-05] MEDS: HYDROcodone/APAP 5-325MG 1 EACH TAB PO PRN ×2 (18:52→19:14)
[2020-12-06] MEDS: SODIUM CHLORIDE 0.9% 1,000 ML IV SCH ×2 (03:24→14:48)
[2020-12-06] MEDS: HYDROcodone/APAP 5-325MG 1 EACH TAB PO PRN ×4 (03:38→21:01)
[2020-12-06] MEDS: METOCLOPRAMIDE 5 MG/ML 2 ML VIAL IVP PRN ×2 (04:19→20:25)
[2020-12-06] MEDS: PANTOPRAZOLE 40 MG TABLET PO SCH ×2 (04:29→18:19)
[2020-12-06] MEDS: SYMBICORT 160-4.5 MCG INHALER INHALATION SCH ×3 (06:50→19:59)
[2020-12-06] MEDS: IPRATROPIUM-ALBUTEROL 3 ML NEB INHALATION SCH ×5 (06:50→19:59)
[2020-12-06] MEDS: DOCUSATE 100 MG CAP PO SCH ×2 (08:27→20:23)
[2020-12-06] MEDS: ENOXAPARIN 40 MG/0.4 ML SYRINGE SQ SCH (08:27)
[2020-12-06] MEDS: METOPROLOL TARTRATE 25 MG TAB PO SCH ×2 (08:27→20:23)
[2020-12-06] MEDS: FAMOTIDINE 20 MG TAB PO SCH ×2 (08:27→20:23)
[2020-12-06] MEDS: MAGNESIUM OXIDE 400 MG TAB PO SCH ×2 (08:33→20:24)
[2020-12-06] MEDS: PIPERACILLIN-TAZOBACTAM 3.375 GM in SODIUM CHLORIDE 0.9% 100 ML IVPB SCH ×2 (08:34→16:37)
--- NOTE | 2020-12-06 11:42 | P.PN ---
Subjective Progress Note Date: 12/06/20 Principal diagnosis: Incisional hernia Patient says overall she is feeling better. She passed flatus. No bowel movement. Tolerating diet. Still not ambulating much. Pulmonic status appears to be improved. Objective - Vital Signs Vital signs: Vital Signs Temp 98.1 F 12/06/20 08:10 Pulse 84 12/06/20 10:45 Resp 16 12/06/20 08:10 BP 141/85 12/06/20 08:10 Pulse Ox 92 L 12/06/20 08:10 Intake & Output 12/05/20 12/06/20 12/06/20 18:59 06:59 18:59 Intake Total 200 Balance 200 Intake: Oral 200 Other: Voiding Method Toilet Toilet # Voids 1 1 - Exam Abdomen: Soft, nondistended, mild tenderness, incisions clean and dry - Labs CBC & Chem 7: 12/05/20 06:01 12/05/20 06:01 Assessment and Plan (1) Small bowel obstruction Narrative/Plan: Patient overall improving. Possible discharge later today or tomorrow. Increase ambulation. Diet as tolerated. Current Visit: No Status: Acute Code(s): K56.609 - UNSP INTESTNL OBST, UNSP TO PARTIAL VERSUS COMPLETE OBST SNOMED Code(s): 591793718
[2020-12-06] MEDS: LOSARTAN 25 MG TAB PO SCH (14:46)
--- NOTE | 2020-12-06 16:31 | PN ---
PROGRESS NOTE DATE OF SERVICE: 12/06/2020 This 70-year-old woman was admitted after laparoscopic robotic assisted ventral hernia incision repair. The patient is being closely monitored. Patient apparently had COPD. The patient was started on empiric antibiotics. Patient had multiple complications after previous cholecystectomy, ending up in the hospital for more than 10 days. The patient is on broad-spectrum IV antibiotics. Chest x-ray showed some minimal abnormalities, increased bronchovascular markings. PHYSICAL EXAMINATION: Patient is alert and oriented x3. Pulse is 76, blood pressure 119/72, respirations 16, temperature 98.2, pulse ox 93% on room air. HEENT: Conjunctivae normal. Oral mucosa moist. NECK: No jugular venous distention. No lymph node enlargement. CARDIOVASCULAR: S1, S2, muffled. No S3, no S4, RESPIRATORY: Diminished breath sounds at the bases. A few scattered rhonchi. ABDOMEN: Soft. NERVOUS SYSTEM: No focal deficits. LABS: Sodium 137, potassium 4.4. Other labs are noted. ASSESSMENT: 1. Status post laparoscopic robotic assisted incisional hernia with lysis of adhesions. 2. Chronic obstructive pulmonary disease acute exacerbation. 3. Right minimal subcutaneous emphysema secondary to insufflation, stable. 4. Gastroesophageal reflux disease. 5. Possible purulent tracheobronchitis. 6. Hypertension. 7. Hyperlipidemia. 8. Pneumonia seems unlikely. 9. History of gallbladder sepsis previously. 10.History of pleural effusion. 11.History of migraine. 12.Chronic bronchitis. 13.History of bowel resection. 14.History of adenoidectomy. 15.History of bowel obstruction. 16.History of cholecystectomy. 17.History of tonsillectomy. 18.History of anxiety. 19.Continued ongoing nicotine dependence. 20.Mild protein calorie malnutrition, BMI of 18.7. 21.FULL CODE. RECOMMENDATIONS AND DISCUSSION: Recommend to continue current medications, continue to monitor, continue symptomatic treatment. Otherwise, at this time I recommend continue with antibiotics bronchodilators. Closely follow with Surgery. Incentive spirometry. Further recommendations to follow. MMODL / IJN: [id number] /
[2020-12-07] MEDS: PIPERACILLIN-TAZOBACTAM 3.375 GM in SODIUM CHLORIDE 0.9% 100 ML IVPB SCH ×2 (00:03→08:30)
[2020-12-07] MEDS: PANTOPRAZOLE 40 MG TABLET PO SCH (04:17)
[2020-12-07] MEDS: SODIUM CHLORIDE 0.9% 1,000 ML IV SCH (08:30)
[2020-12-07] MEDS: ENOXAPARIN 40 MG/0.4 ML SYRINGE SQ SCH (08:31)
[2020-12-07] MEDS: DOCUSATE 100 MG CAP PO SCH (08:31)
[2020-12-07] MEDS: MAGNESIUM OXIDE 400 MG TAB PO SCH (08:32)
[2020-12-07] MEDS: FAMOTIDINE 20 MG TAB PO SCH (08:32)
[2020-12-07] MEDS: HYDROcodone/APAP 5-325MG 1 EACH TAB PO PRN ×2 (08:33→14:23)
[2020-12-07] MEDS: METOPROLOL TARTRATE 25 MG TAB PO SCH (08:33)
[2020-12-07 08:46] VITALS: BP 179/87; TEMP 98.3
[2020-12-07] MEDS: IPRATROPIUM-ALBUTEROL 3 ML NEB INHALATION SCH ×3 (09:01→16:43)
[2020-12-07] MEDS: SYMBICORT 160-4.5 MCG INHALER INHALATION SCH (09:01)
[2020-12-07 09:04] VITALS: RESP 18
[2020-12-07] MEDS: LOSARTAN 25 MG TAB PO SCH (12:09)
--- NOTE | 2020-12-07 13:11 | P.DS ---
Providers Date of admission: 12/04/20 12:58 Expected date of discharge: 12/07/20 Attending physician: Blas Hooker Consults: 12/02/20 15:25 Consult Physician Routine Consulting Provider: Joyd Hills Consult Reason/Comments: med manage Do you want consulting provider notified?: Yes Primary care physician: Physician Nonstaff Hospital Course: Discharge diagnosis 1. Incisional hernia status post laparoscopic robotic-assisted incisional hernia repair and laparoscopic lysis of adhesions Hospital course This is a 62-year-old female with an incisional hernia. She is status post laparoscopic robotic-assisted incisional hernia repair and laparoscopic lysis of adhesions. Patient tolerated surgery well. She is tolerating regular diet. She is up and ambulating. Her pain is controlled. She is passing gas. She is afebrile. She is followed by medicine service for COPD with acute exacerbation and possible bronchitis. Patient is stable for discharge. Please refer to chart for any further details. Physician Lay Out Technician note has been reviewed by physician. Signing provider agrees with the documented findings, assessment, and plan of care. Patient Condition at Discharge: Stable Plan - Discharge Summary Discharge Rx Participant: No New Discharge Prescriptions: New Docusate [Colace] 100 mg PO BID #20 capsule Ibuprofen [Motrin] 600 mg PO Q6HR PRN #40 tab PRN Reason: Pain oxyCODONE HCL [OxyIR] 5 mg PO Q6H PRN 3 Days #10 tab PRN Reason: Pain Acetaminophen Tab [Tylenol] 650 mg PO Q6H #30 tab Ipratropium-Albuterol Nebulize [Duoneb 0.5 mg-3 mg/3 ml Soln] 3 ml INHALATION RT-QID PRN ml Continue Pyridoxine [Vitamin B-6] 100 mg PO BID Cholecalciferol [Vitamin D3 (25 Mcg = 1000 Iu)] 5,000 unit PO DAILY Losartan [Cozaar] 25 mg PO 1200 Cyanocobalamin [Vitamin B-12] 1,000 mcg PO DAILY Ezetimibe [Zetia] 10 mg PO HS Famotidine [Pepcid] 20 mg PO BID Vitamin A Tab 2,400 mcg PO DAILY Acetaminophen [Tylenol Arthritis] 650 mg PO Q6HR PRN PRN Reason: Pain Budesonide-Formot 160-4.5 Mcg [Symbicort 160-4.5 Mcg Inhaler] 2 puff INHALATION BID diphenhydrAMINE [Benadryl] 25 mg PO HS PRN PRN Reason: sleep Magnesium 250 mg PO BID Melatonin 10 mg PO HS PRN PRN Reason: sleep Metoprolol Tartrate [Lopressor] 25 mg PO BID Aspirin [Adult Low Dose Aspirin EC] 81 mg PO DAILY Albuterol Sulfate [Albuterol Sulfate Hfa] 1 puff PO RT-Q6H PRN PRN Reason: Shortness Of Breath Docusate [Colace] 100 mg PO TID PRN PRN Reason: Constipation Ibuprofen [Motrin Ib] 400 mg PO Q4HR Changed Ipratropium-Albuterol Nebulize [Duoneb 0.5 mg-3 mg/3 ml Soln] 3 ml IH QID 30 Days #120 ampul Discharge Medication List Cholecalciferol [Vitamin D3 (25 Mcg = 1000 Iu)] 5,000 unit PO DAILY 08/06/15 [History] Losartan [Cozaar] 25 mg PO 1200 08/06/15 [History] Pyridoxine [Vitamin B-6] 100 mg PO BID 08/06/15 [History] Cyanocobalamin [Vitamin B-12] 1,000 mcg PO DAILY 04/21/17 [History] Ezetimibe [Zetia] 10 mg PO HS 04/21/17 [History] Famotidine [Pepcid] 20 mg PO BID 04/21/17 [History] Acetaminophen [Tylenol Arthritis] 650 mg PO Q6HR PRN 04/10/20 [History] Aspirin [Adult Low Dose Aspirin EC] 81 mg PO DAILY 04/10/20 [History] Budesonide-Formot 160-4.5 Mcg [Symbicort 160-4.5 Mcg Inhaler] 2 puff INHALATION BID 04/10/20 [History] Magnesium 250 mg PO BID 04/10/20 [History] Melatonin 10 mg PO HS PRN 04/10/20 [History] Metoprolol Tartrate [Lopressor] 25 mg PO BID 04/10/20 [History] Vitamin A Tab 2,400 mcg PO DAILY 04/10/20 [History] diphenhydrAMINE [Benadryl] 25 mg PO HS PRN 04/10/20 [History] Albuterol Sulfate [Albuterol Sulfate Hfa] 1 puff PO RT-Q6H PRN 05/05/20 [History] Docusate [Colace] 100 mg PO TID PRN 11/30/20 [History] Ibuprofen [Motrin Ib] 400 mg PO Q4HR 11/30/20 [History] Acetaminophen Tab [Tylenol] 650 mg PO Q6H #30 tab 12/02/20 [Rx] Docusate [Colace] 100 mg PO BID #20 capsule 12/02/20 [Rx] Ibuprofen [Motrin] 600 mg PO Q6HR PRN #40 tab 12/02/20 [Rx] oxyCODONE HCL [OxyIR] 5 mg PO Q6H PRN 3 Days #10 tab 12/02/20 [Rx] Ipratropium-Albuterol Nebulize [Duoneb 0.5 mg-3 mg/3 ml Soln] 3 ml IH QID 30 Days #120 ampul 12/03/20 [Rx] Ipratropium-Albuterol Nebulize [Duoneb 0.5 mg-3 mg/3 ml Soln] 3 ml INHALATION RT-QID PRN ml 12/03/20 [Rx] Follow up Appointment(s)/Referral(s): [facility] [place], [NON-STAFF] - 1-2 Days Blas Hooker MD [STAFF PHYSICIAN] - 12/15/20 2:40 pm Patient Instructions/Handouts: *Surgery [facility] - (Anesthesia) Discharge Instructions Outpatient Surgery, Incisional Hernia (DC) Activity/Diet/Wound Care/Special Instructions: Antibiotics per medicine service He has already taken her prescriptions and had them filled. No driving while taking Narcotics No lifting over 10 pounds You may shower. No soaking or tub baths for 2 weeks Very light activity until you are reevaluated at your follow up appointment with your surgeon Discharge Disposition: HOME WITH HOME HEALTH SERVICES
[2020-12-07 14:01] VITALS: PULSE 80
--- NOTE | 2020-12-07 15:27 | PN ---
PROGRESS NOTE DATE OF SERVICE: 12/07/2020 This 70-year-old woman who was admitted after laparoscopic robotic-assisted incisional hernia repair with lysis of adhesions also had COPD. The patient had significant infection previous gallbladder. The patient is on broad-spectrum IV antibiotics. No chest pain. No palpitations. No fever. PHYSICAL EXAMINATION: Alert and oriented x3. Pulse 84, blood pressure 117/87, respiration 18, temperature 98.2, pulse ox 94% on room air. HEENT: Conjunctivae normal. NECK: No jugular venous distention. CARDIOVASCULAR SYSTEM: S1, S2 muffled. RESPIRATORY SYSTEM: Breath sounds diminished at the bases. A few scattered rhonchi and crackles. ABDOMEN: Soft, non-tender. LEGS: No edema. No swelling. NERVOUS SYSTEM: No focal deficit. LABS: CBC, BMP noted. Potassium 4.4. ASSESSMENT: 1. Status post laparoscopic robotic-assisted incisional hernia with lysis of adhesions. 2. Chronic obstructive pulmonary disease, acute exacerbation. 3. Right minimal subcutaneous emphysema secondary to insufflation, stable. 4. Gastroesophageal reflux disease. 5. Acute purulent tracheobronchitis. 6. Hypertension. 7. Hyperlipidemia. 8. Pneumonia seems unlikely. 9. History of gallbladder sepsis previously. 10.History of pleural effusion. 11.History of migraine. 12.History of chronic bronchitis. 13.History of bowel resection. 14.History of adenoidectomy. 15.History of bowel obstruction. 16.History of cholecystectomy. 17.History of tonsillectomy. 18.History of anxiety. 19.Continued ongoing nicotine dependence. 20.Mild protein-calorie malnutrition. BMI 18.7. 21.FULL CODE. RECOMMENDATIONS AND DISCUSSION: I recommend to continue current medications, continue with the monitoring, symptomatic treatment. I recommend continuing with bronchodilators. Also recommend a course of antibiotics. Otherwise, closely follow with Dr. Townsend in the outpatient setting. Discussed with the patient, who understands and agrees. A copy of this dictation is being forwarded to Dr. Townsend, who is the primary physician. Rest of the recommendations per Surgery. MMODL / IJN: [id number] / MTDD
--- NOTE | 2020-12-10 10:14 | CDI ---
Documentation Clarification Form Date: 12/10/2020 10:11:14 AM From: Sabrina Raymundo RN, CCDS Admit Date: 12/04/2020 12:58:00 PM Patient Name: Letty Troy Visit Number: [id number] Discharge Date: 12/07/2020 04:50:00 PM ATTENTION: The Clinical Documentation Specialists (CDI) and [facility] Coding Staff appreciate your assistance in clarifying documentation. Please respond to the clarification below the line at the bottom and electronically sign. The CDI & [facility] Coding staff will review the response and follow-up if needed. Please note: Queries are made part of the Legal Health Record. If you have any questions, please contact the author of this message via ITS. Dr. Blas Chaudhryania Your patient has the documented small bowel obstruction by the covering surgeon. Additional clarification regarding the etiology/cause of this symptom is requested as you are the attending MD Patient history/risk factors: Incisional hernia with robotic assisted repair of incisional hernia, GERD, COPD, HTN, chronic bronchitis, diverticulosis, hx of bowel obstructions Clinical Indicators: 12/03 CXR: There is air along the right lateral chest wall. No sizable pneumothorax is seen with certainty. Patchy density right suprahilar region which may reflect underlying infiltrate. 12/05-12/06 Surgical progress note (Dr. Villatoro): "Abdomen: Soft, nondistended, incisions clean and dry, mild tenderness. Small bowel obstruction." Radiology: 12/02-12/05 Labs: WBC 16.8/9.4/9.8, Neutrophils 14.7/6.9/8 12/05 0904 Vital Signs: Temp 97.9, HR 82, RR 20, B/P 186/94, Spo2 91% ra Treatment: No NGT Pt is eating regular diet Medication: Colace 100 mg Po BID, Reglan 10 mg IVP Q 6 hrs. Please provide additional clarification regarding the etiology/cause of the abdominal pain: [ ] Small Bowel Obstruction Ruled Out [ ] Small Bowel Obstruction resulting from surgical procedure [ ] Small bowel Obstruction due to comorbid conditions (please specify conditions) [x ] Other, please specify [ ] Unable to determine (Template Last Revised: August 2020) MTDD
== END 2020-12-07 16:50 | disposition home health service (06) | DRG 982 ==
LOC: OR 09:02 → 6PED 13:07 → OR 12-03 14:58 → OBSVTOIN 12-04 12:58
PROVIDERS: ADMIT Surgery; ATTEND Surgery
PROC: 0DN84ZZ Release Small Intestine, Percutaneous Endoscopic Approach (ICD-10-PCS; principal; 2020-12-02 10:40)
PROC: 8E0W4CZ Robotic Assisted Procedure of Trunk Region, Percutaneous Endoscopic Approach (ICD-10-PCS; principal; 2020-12-02 10:40)
PROC: 0WUF4JZ Supplement Abdominal Wall with Synthetic Substitute, Percutaneous Endoscopic Approach (ICD-10-PCS; principal; 2020-12-02 10:40)
DX: J44.0 Chronic obstructive pulmonary disease with (acute) lower respiratory infection (principal); E44.1 Mild protein-calorie malnutrition; K56.609 Unspecified intestinal obstruction, unspecified as to partial versus complete obstruction; Z68.1 Body mass index [BMI] 19.9 or less, adult; J20.9 Acute bronchitis, unspecified; J44.1 Chronic obstructive pulmonary disease with (acute) exacerbation; Z20.822 Contact with and (suspected) exposure to COVID-19; K43.2 Incisional hernia without obstruction or gangrene; E87.5 Hyperkalemia; K66.0 Peritoneal adhesions (postprocedural) (postinfection); K21.9 Gastro-esophageal reflux disease without esophagitis; E78.5 Hyperlipidemia, unspecified; I10 Essential (primary) hypertension; E78.1 Pure hyperglyceridemia; K44.9 Diaphragmatic hernia without obstruction or gangrene; K57.90 Diverticulosis of intestine, part unspecified, without perforation or abscess without bleeding; F17.200 Nicotine dependence, unspecified, uncomplicated; Z71.6 Tobacco abuse counseling; Z79.82 Long term (current) use of aspirin; Z79.51 Long term (current) use of inhaled steroids; Z79.1 Long term (current) use of non-steroidal anti-inflammatories (NSAID); Z79.899 Other long term (current) drug therapy; Z86.19 Personal history of other infectious and parasitic diseases; Z87.440 Personal history of urinary (tract) infections; Z90.89 Acquired absence of other organs; Z90.49 Acquired absence of other specified parts of digestive tract; Z90.710 Acquired absence of both cervix and uterus; Z71.3 Dietary counseling and surveillance; Z98.42 Cataract extraction status, left eye; Z98.41 Cataract extraction status, right eye; Z96.691 Finger-joint replacement of right hand; Z87.39 Personal history of other diseases of the musculoskeletal system and connective tissue; Z86.59 Personal history of other mental and behavioral disorders; Z98.890 Other specified postprocedural states; Z88.8 Allergy status to other drugs, medicaments and biological substances; Z91.048 Other nonmedicinal substance allergy status; Z81.8 Family history of other mental and behavioral disorders; Z82.49 Family history of ischemic heart disease and other diseases of the circulatory system; Z82.69 Family history of other diseases of the musculoskeletal system and connective tissue; Z82.5 Family history of asthma and other chronic lower respiratory diseases; Z82.0 Family history of epilepsy and other diseases of the nervous system
CPT/HCPCS: 71045; 71046; 80048; 80053; 85025; 87635; 94640; 94760

== ENCOUNTER 2021-03-29 19:26 | Inpatient (IN) | payer MEDICARE ==
[2021-03-29] MEDS ORDERED: ONDANSETRON 4 MG/2 ML VIAL IVP STA (19:55)
[2021-03-29] MEDS ORDERED: MORPHINE SULFATE 4 MG/ML SYRINGE IVP STA (19:55)
[2021-03-29] MEDS ORDERED: SODIUM CHLORIDE 0.9% 1,000 ML IV STA (19:56)
[2021-03-29 20:18] LABS: Basophils # (A) 0.1 k/uL (0-0.2); Basophils % (A) 1 %; Eosinophils # (A) 0.1 k/uL (0-0.7); Eosinophils % (A) 1 %; HCT 42.5 % (34.0-46.0); Lymphocytes # (A) 1.3 k/uL (1.0-4.8); Lymphocytes % (A) 13 %; MCH 32.1 pg (25.0-35.0); MCV 97.4 fL (80.0-100.0); Mean Platelet Volume 6.6; Monocytes # (A) 0.3 k/uL (0-1.0); Monocytes % (A) 3 %; Neutrophils # (A) 8.5 k/uL (1.3-7.7); Neutrophils % (A) 81 %; Platelet Count 360 k/uL (150-450); RBC 4.37 m/uL (3.80-5.40); RDW 13.5 % (11.5-15.5); WBC 10.5 k/uL (3.8-10.6)
[2021-03-29 20:27] LABS: Albumin 4.2 g/dL (3.5-5.0); Calcium 9.9 mg/dL (8.4-10.2); Potassium 4.7 mmol/L (3.5-5.1); Total Bilirubin 0.3 mg/dL (0.2-1.3); Total Protein 6.8 g/dL (6.3-8.2)
[2021-03-29 20:32] LABS: Prothrombin Time 10.3 sec (9.0-12.0)
--- NOTE | 2021-03-29 21:55 | ED ---
Abdominal Pain HPI - General Chief Complaint: Abdominal Pain Stated Complaint: Bowel Obstruction Source: patient, EMS, RN notes reviewed Mode of arrival: EMS Limitations: no limitations - History of Present Illness Initial Comments: Patient is a 71-year-old female that presents to emergency department as a transfer from [facility]. They noted a center over with a GI ob struction found on computed tomography scan. Patient notes that she has had a bowel obstruction the past and Dr. Hooker is her surgeon. Patient notes her last bowel movement was cleared today. Patient's packet sent with her did not include the computed tomography scan impression. Patient was uncomfortable sitting up in bed during the exam interview stating that her pain was approximately a 7 out of 10 and climbing. She denied any nausea or vomiting this time. She did note that she had a decreased appetite and did not feel hungry at this time. She denied any chest pain shortness of breath headache diarrhea fever fatigue chills. - Related Data Home Medications Medication Instructions Recorded Confirmed Cholecalciferol [Vitamin D3 (25 5,000 unit PO DAILY 08/06/15 03/29/21 Mcg = 1000 Iu)] Pyridoxine [Vitamin B-6] 50 mg PO DAILY 08/06/15 03/29/21 Cyanocobalamin [Vitamin B-12] 1,000 mcg PO DAILY 04/21/17 03/29/21 Ezetimibe [Zetia] 10 mg PO HS 04/21/17 03/29/21 Famotidine [Pepcid] 20 mg PO BID 04/21/17 03/29/21 Acetaminophen [Tylenol Arthritis] 650 mg PO Q6HR PRN 04/10/20 03/29/21 Aspirin [Adult Low Dose Aspirin EC] 81 mg PO DAILY 04/10/20 03/29/21 Budesonide-Formot 160-4.5 Mcg 2 puff INHALATION RT-BID 04/10/20 03/29/21 [Symbicort 160-4.5 Mcg Inhaler] Metoprolol Tartrate [Lopressor] 25 mg PO BID 04/10/20 03/29/21 Albuterol Sulfate [Albuterol 1 puff PO RT-Q6H PRN 05/05/20 03/29/21 Sulfate Hfa] Ipratropium-Albuterol Nebulize 3 ml INHALATION RT-QID PRN 03/29/21 03/29/21 [Duoneb 0.5 mg-3 mg/3 ml Soln] Losartan Potassium [Cozaar] 25 mg PO BID 03/29/21 03/29/21 Metoclopramide [Reglan] 5 mg PO BID PRN 03/29/21 03/29/21 Previous Rx's Medication Instructions Recorded Ibuprofen [Motrin] 600 mg PO Q6HR PRN #40 tab 12/02/20 Allergies Allergy/AdvReac Type Severity Reaction Status Date / Time amlodipine Allergy Swelling Verified 03/29/21 20:17 mercury (elemental) Allergy Unknown Verified 03/29/21 20:17 lisinopril AdvReac scratchy Verified 03/29/21 20:17 cough thimerosal AdvReac Abdominal Verified 03/29/21 20:17 Pain,fever,itchy & draining eyes Review of Systems ROS Statement: Those systems with pertinent positive or pertinent negative responses have been documented in the HPI. ROS Other: All systems not noted in ROS Statement are negative. Past Medical History Past Medical History: COPD, GERD/Reflux, Hyperlipidemia, Hypertension Additional Past Medical History / Comment(s): ,SEPTIC WITH GALL BLADDER withPLEURAL EFFUSION 2006; ENLARGED LIVER, KIDNEY INFECTION also, ARTI [place], hx migraines, occ palpitations, chronic bronchitis, hiatal hernia, divert iculosis, lesion on liver, small bowel obstruction, History of Any Multi-Drug Resistant Organisms: None Reported Past Surgical History: Adenoidectomy, Appendectomy, Cholecystectomy, Hysterectomy, Joint Replacement, Orthopedic Surgery, Tonsillectomy Additional Past Surgical History / Comment(s): EGD, COLONOSCOPY, colton cataracts, rt carpal tunnel x 2, rt thumb arthroplasty, cubital tunnel repair rt elbow, left knee arthroscopy, Past Anesthesia/Blood Transfusion Reactions: Motion Sickness Additional Past Anesthesia/Blood Transfusion Reaction / Comment(s): NO PROBLEMS WITH PRIOR BLOOD TRANSFUSION Past Psychological History: No Psychological Hx Reported Smoking Status: Current every day smoker Past Alcohol Use History: None Reported Past Drug Use History: None Reported - Past Family History Mother Family Medical History: No Reported History Additional Family Medical History / Comment(s): Alzheimers Father Family Medical History: Chest Pain / Angina, Hypertension Additional Family Medical History / Comment(s): PARKINSON,GOUT Sister(s) Family Medical History: Asthma, COPD Additional Family Medical History / Comment(s): Multiple sclerosis, passed a 50 Brother(s) Family Medical History: COPD, Hypertension Additional Family Medical History / Comment(s): GULLIAN BARRE General Exam Limitations: no limitations General appearance: alert, in no apparent distress Head exam: Present: atraumatic, normocephalic, normal inspection Eye exam: Present: normal appearance, PERRL, EOMI. Absent: scleral icterus, conjunctival injection, periorbital swelling Neck exam: Present: normal inspection Respiratory exam: Present: normal lung sounds bilaterally. Absent: respiratory distress, wheezes, rales, rhonchi, stridor Cardiovascular Exam: Present: regular rate, normal rhythm, normal heart sounds. Absent: systolic murmur, diastolic murmur, rubs, gallop, clicks GI/Abdominal exam: Present: soft, tenderness (Right lower quadrant left lower quadrant), normal bowel sounds. Absent: distended, guarding, rebound, rigid Extremities exam: Present: normal inspection, full ROM, normal capillary refill. Absent: tenderness, pedal edema, joint swelling, calf tenderness Neurological exam: Present: alert, oriented X3 Psychiatric exam: Present: normal affect, normal mood Skin exam: Present: warm, dry, intact, normal color. Absent: rash Course Vital Signs 03/29/21 03/29/21 03/29/21 19:38 21:04 23:01 Temperature 99.4 F Pulse Rate 82 72 69 Respiratory 18 18 18 Rate Blood Pressure 134/93 139/64 137/71 O2 Sat by Pulse 93 L 97 95 Oximetry Medical Decision Making - Medical Decision Making 71-year-old female presenting as a transfer [facility] for a GI obstruction. Labs, KUB, 1 L normal saline, 4 mg of morphine, 4 mg of Zofran ordered. [facility] was contacted several times to try to retrieve the impression further computed tomography scan. Computed tomography scan disc will be uploaded to our system. Labs: CBC unremarkable coagulation unremarkable CMP unremarkable Case discussed with Dr. Orellana outpatient be admitted. Steven Rubio from [facility] accepted the admit with Dr. Hooker on consult. - Lab Data Result diagrams: 03/29/21 20:10 03/29/21 20:10 Lab Results 03/29/21 03/29/21 03/29/21 Range/Units 20:10 20:10 20:10 WBC 10.5 (3.8-10.6) k/uL RBC 4.37 (3.80-5.40) m/uL Hgb 14.0 (11.4-16.0) gm/dL Hct 42.5 (34.0-46.0) % MCV 97.4 (80.0-100.0) fL MCH 32.1 (25.0-35.0) pg MCHC 33.0 (31.0-37.0) g/dL RDW 13.5 (11.5-15.5) % Plt Count 360 (150-450) k/uL MPV 6.6 Neutrophils % 81 % Lymphocytes % 13 % Monocytes % 3 % Eosinophils % 1 % Basophils % 1 % Neutrophils # 8.5 H (1.3-7.7) k/uL Lymphocytes # 1.3 (1.0-4.8) k/uL Monocytes # 0.3 (0-1.0) k/uL Eosinophils # 0.1 (0-0.7) k/uL Basophils # 0.1 (0-0.2) k/uL PT 10.3 (9.0-12.0) sec INR 1.0 (<1.2) APTT 24.0 (22.0-30.0) sec Sodium 140 (137-145) mmol/L Potassium 4.7 (3.5-5.1) mmol/L Chloride 111 H (98-107) mmol/L Carbon Dioxide 20 L (22-30) mmol/L Anion Gap 9 mmol/L BUN 18 H (7-17) mg/dL Creatinine 0.99 (0.52-1.04) mg/dL Est GFR (CKD-EPI)AfAm 67 (>60 ml/min/1.73 sqM) Est GFR (CKD-EPI)NonAf 59 (>60 ml/min/1.73 sqM) Glucose 102 H (74-99) mg/dL Calcium 9.9 (8.4-10.2) mg/dL Total Bilirubin 0.3 (0.2-1.3) mg/dL AST 39 H (14-36) U/L ALT 20 (4-34) U/L Alkaline Phosphatase 76 (38-126) U/L Total Protein 6.8 (6.3-8.2) g/dL Albumin 4.2 (3.5-5.0) g/dL - Radiology Data Radiology results: report reviewed, image reviewed KUB: Nonacute abdomen. Disposition Clinical Impression: Bowel obstruction, Small bowel obstruction Disposition: ADMITTED IP TO THIS [facility] Condition: Stable Is patient prescribed a controlled substance at d/c from ED?: No Referrals: Carol Townsend MD [Primary Care Provider] - 1-2 days Time of Disposition: 23:04
--- NOTE | 2021-03-29 22:11 | XR ---
EXAMINATION TYPE: XR KUB portable DATE OF EXAM: 03/29/2021 COMPARISON: NONE HISTORY: Right upper quadrant pain TECHNIQUE: 2 views upright FINDINGS: Bowel gas pattern is normal. There is no sign of intestinal obstruction or pneumoperitoneum . There is contrast in the urinary bladder. There are clips from cholecystectomy. Lung bases are wade r. There is some contrast in both kidneys. IMPRESSION: Nonacute abdomen.
[2021-03-29] MEDS ORDERED: NALOXONE 0.4 MG/ML 1 ML VIAL IV PRN (23:04)
[2021-03-29] MEDS ORDERED: PIPERACILLIN-TAZOBACTAM 3.375 GM in SODIUM CHLORIDE 0.9% 100 ML IVPB STA (23:05)
[2021-03-29] MEDS: SODIUM CHLORIDE 0.9% 1,000 ML IV SCH (23:28)
[2021-03-30] MEDS: MORPHINE SULFATE 4 MG/ML SYRINGE IV PRN ×4 (01:37→22:37)
[2021-03-30] MEDS: ONDANSETRON 4 MG/2 ML VIAL IVP PRN ×2 (06:50→17:08)
[2021-03-30] MEDS ORDERED: IPRATROPIUM-ALBUTEROL 3 ML NEB INHALATION PRN (08:49)
[2021-03-30] MEDS ORDERED: ALBUTEROL HFA INHALER INHALATION PRN (09:38)
[2021-03-30 10:20] VITALS: BMI 17.8
[2021-03-30] MEDS: METOPROLOL TARTRATE 25 MG TAB PO SCH ×2 (10:53→19:59)
[2021-03-30] MEDS: IPRATROPIUM-ALBUTEROL 3 ML NEB INHALATION SCH ×4 (11:58→23:21)
--- NOTE | 2021-03-30 12:26 | P.HPIM ---
History of Present Illness This is a pleasant 71 years old female with past medical history of COPD, GERD, hypertension, hyperlipidemia, migraine, She presents because of upper and right-sided abdominal pain 5/10 in severity. She was transferred from [facility] with possible small bowel obstruction. Is that her abdominal pain was 10/10 when it started yesterday, mainly in the right and upper abdomen, radiating through the back. Nonspecific in character. Associated with nausea but no vomiting. last bowel movement was yesterday. No bowel movement or passing gas today but her abdominal pain feels better at 5/10 On reviewing the records from [facility] Single supine view of the abdomen showing no marcel obstruction with findings suggestive of a small bowel ileus in the left upper and central abdomen. CT of the abdomen and pelvis with contrast: Distended loops of fluid-filled small bowel in the low pelvic region. No abscess. No perforation or pneumatosis. This might reflect partial small bowel obstruction versus high-grade small bowel obstruction. Distended urinary bladder. Mild subclinical enlargement WBC is normal at 8.4, hemoglobin 14.8, platelets 365 k. INR 0.9, sodium 142, potassium 4.4, creatinine 1.1. ALT 24 and AST mildly high at 38. Lipase normal at 98, lactate is normal at 2.0 Vitas looks stable, blood pressure on the high side 161/70 Repeat labs show an unremarkable CBC, INR, BMP and liver enzymes. KUB: Emely anne acute abdomen Surgery team were consulted In the emergency room she will received 1 dose of Zosyn and continued with normal saline at 1 30 mL/h Review of Systems CONSTITUTIONAL: No fever, no malaise, no fatigue. HEENT: No recent visual problems or hearing problems. Denied any sore throat. CARDIOVASCULAR: No orthopnea, PND, no palpitations, no syncope. PULMONARY: No shortness of breath, no cough, no hemoptysis. GASTROINTESTINAL: No diarrhea, no nausea, no vomiting, no abdominal pain. Normoactive bowel sounds. NEUROLOGICAL: No headaches, no weakness, no numbness. HEMATOLOGICAL: Denies any bleeding or petechiae. GENITOURINARY: Denies any burning micturition, frequency, or urgency. MUSCULOSKELETAL/RHEUMATOLOGICAL: Denies any joint pain, swelling, or any muscle pain. ENDOCRINE: Denies any polyuria or polydipsia. Past Medical History Past Medical History: COPD, GERD/Reflux, Hyperlipidemia, Hypertension Additional Past Medical History / Comment(s): SEPTIC WITH GALL BLADDER with PLEURAL EFFUSION 2006; ENLARGED LIVER, KIDNEY INFECTION also, ARTI [place] VIRUS, hx migraines, occ palpitations, chronic bronchitis, hiatal hernia, diverticulosis, lesion on liver, small bowel obstruction. History of Any Multi-Drug Resistant Organisms: None Reported Past Surgical History: Adenoidectomy, Appendectomy, Cholecystectomy, Hysterectomy, Joint Replacement, Orthopedic Surgery, Tonsillectomy Additional Past Surgical History / Comment(s): EGD, COLONOSCOPY, colton cataracts, rt carpal tunnel x 2, rt thumb arthroplasty, cubital tunnel repair rt elbow, left knee arthroscopy. Laparoscopic lysis of adhesions 12/02/2020 Past Anesthesia/Blood Transfusion Reactions: Motion Sickness Additional Past Anesthesia/Blood Transfusion Reaction / Comment(s): NO PROBLEMS WITH PRIOR BLOOD TRANSFUSION Past Psychological History: No Psychological Hx Reported Smoking Status: Current every day smoker Past Alcohol Use History: None Reported Additional Past Alcohol Use History / Comment(s): STARTED SMOKING 1967, 6-8 cigarettes per day. Past Drug Use History: None Reported - Past Family History Mother Family Medical History: No Reported History Additional Family Medical History / Comment(s): Alzheimers Father Family Medical History: Chest Pain / Angina, Hypertension Additional Family Medical History / Comment(s): PARKINSON,GOUT Sister(s) Family Medical History: Asthma, COPD Additional Family Medical History / Comment(s): Multiple sclerosis, passed a 50 Brother(s) Family Medical History: COPD, Hypertension Additional Family Medical History / Comment(s): GULLIAN BARRE Medications and Allergies Home Medications Medication Instructions Recorded Confirmed Type Cholecalciferol [Vitamin D3 (25 5,000 unit PO DAILY 08/06/15 03/29/21 History Mcg = 1000 Iu)] Pyridoxine [Vitamin B-6] 50 mg PO DAILY 08/06/15 03/29/21 History Cyanocobalamin [Vitamin B-12] 1,000 mcg PO DAILY 04/21/17 03/29/21 History Ezetimibe [Zetia] 10 mg PO HS 04/21/17 03/29/21 History Famotidine [Pepcid] 20 mg PO BID 04/21/17 03/29/21 History Acetaminophen [Tylenol Arthritis] 650 mg PO Q6HR PRN 04/10/20 03/29/21 History Aspirin [Adult Low Dose Aspirin EC] 81 mg PO DAILY 04/10/20 03/29/21 History Budesonide-Formot 160-4.5 Mcg 2 puff INHALATION RT-BID 04/10/20 03/29/21 History [Symbicort 160-4.5 Mcg Inhaler] Metoprolol Tartrate [Lopressor] 25 mg PO BID 04/10/20 03/29/21 History Albuterol Sulfate [Albuterol 1 puff PO RT-Q6H PRN 05/05/20 03/29/21 History Sulfate Hfa] Ibuprofen [Motrin] 600 mg PO Q6HR PRN #40 tab 12/02/20 03/29/21 Rx Ipratropium-Albuterol Nebulize 3 ml INHALATION RT-QID PRN 03/29/21 03/29/21 History [Duoneb 0.5 mg-3 mg/3 ml Soln] Losartan Potassium [Cozaar] 25 mg PO BID 03/29/21 03/29/21 History Metoclopramide [Reglan] 5 mg PO BID PRN 03/29/21 03/29/21 History Allergies Allergy/AdvReac Type Severity Reaction Status Date / Time amlodipine Allergy Swelling Verified 03/30/21 02:59 mercury (elemental) Allergy Unknown Verified 03/30/21 02:59 lisinopril AdvReac scratchy Verified 03/30/21 02:59 cough thimerosal AdvReac Abdominal Verified 03/30/21 02:59 Pain,fever,itchy & draining eyes Physical Exam Vitals: Vital Signs Temp Pulse Pulse Resp BP BP Pulse Ox 03/30/21 07:05 98.3 F 71 20 161/70 95 03/30/21 02:00 98.3 F 72 18 165/76 93 L 03/30/21 00:45 98.3 F 03/30/21 00:27 68 18 138/85 96 03/29/21 23:01 69 18 137/71 95 03/29/21 21:04 72 18 139/64 97 03/29/21 19:38 99.4 F 82 18 134/93 93 L Intake and Output 03/29/21 03/30/21 03/30/21 22:59 06:59 14:59 Intake Total 0 Output Total 1000 Balance -1000 Intake: Oral 0 Output: Urine 1000 Other: Voiding Method Toilet Weight 52.617 kg 53.2 kg GENERAL: The patient is alert and oriented x3, not in any acute distress. Well developed, well nourished. HEENT: Pupils are round and equally reacting to light. EOMI. No scleral icterus. No conjunctival pallor. Normocephalic, atraumatic. No pharyngeal erythema. No thyromegaly. CARDIOVASCULAR: S1 and S2 present. No murmurs, rubs, or gallops. PULMONARY: Chest is clear to auscultation, no wheezing or crackles. -ABDOMEN: Soft, right upper abdomen tenderness, with no rebound tenderness, nondistended, normoactive bowel sounds. No palpable organomegaly. MUSCULOSKELETAL: No joint swelling or deformity. EXTREMITIES: No cyanosis, clubbing, or pedal edema. NEUROLOGICAL: Gross neurological examination did not reveal any focal deficits. SKIN: No rashes. No petechiae Results CBC & Chem 7: 03/29/21 20:10 03/29/21 20:10 Labs: Abnormal Lab Results - Last 24 Hours (Table) 03/29/21 03/29/21 Range/Units 20:10 20:10 Neutrophils # 8.5 H (1.3-7.7) k/uL Chloride 111 H (98-107) mmol/L Carbon Dioxide 20 L (22-30) mmol/L BUN 18 H (7-17) mg/dL Glucose 102 H (74-99) mg/dL AST 39 H (14-36) U/L Thrombosis Risk Factor Assmnt - Choose All That Apply Any of the Below Risk Factors Present?: Yes Each Factor Represents 1 point: Abnormal pulmonary function (COPD) Other Risk Factors: Yes Each Risk Factor Represents 2 Points: Age 61-74 years Other congenital or acquired thrombophilia - If yes, enter type in comment: No Thrombosis Risk Factor Assessment Total Risk Factor Score: 3 Thrombosis Risk Factor Assessment Level: Moderate Risk Assessment and Plan Assessment: Acute small bowel obstruction History of GERD Hypertension Hyperlipidemia History of migraine OPD, no acute exacerbation Plan: this is a pleasant 71 years old female who presents with bowel obstruction. To continue with bowel rest, IV fluids and pain management Surgery team consult Currently patient is nothing by mouth we will resume diet was cleared by surgery team Labs and medication were reviewed.. Continue same treatment. Continue with symptomatic treatment. Resume home medication. Monitor lytes and vitals. DVT and GI prophylaxis. Further recommendations depends on the clinical course of the patient DVT prophylaxis: Subcutaneous heparin GI Prophylaxis: Pepcid PT/OT: Pending Prognosis is guarded
[2021-03-30] MEDS: IOPAMIDOL CONTRAST (ORAL USE) VIAL PO PRN ×2 (13:58→14:52)
[2021-03-30] MEDS: SODIUM CHLORIDE 0.9% 1,000 ML IV SCH ×3 (14:03→23:27)
--- NOTE | 2021-03-30 15:08 | P.GSCN ---
History of Present Illness Consult date: 03/30/21 History of present illness: CHIEF COMPLAINT: Abdominal pain HISTORY OF PRESENT ILLNESS: This is a 71-year-old female with a known history of small bowel obstruction, COPD, hypertension, hyperlipidemia and diverticulosis. Patient required exploratory laparotomy and lysis of adhesion in April 2020 for small bowel obstruction secondary to an internal hernia. Patient is also had cholecystectomy appendectomy and hysterectomy. Patient initially went to [facility] for abdominal pain. She reports that she had abdominal pain that was very sharp and intense that started at 6:30 yesterday morning. It woke her up out of sleep. She still reports that the pain was stabbing in the upper abdomen and went into the upper back. She is nauseated. She was able to have one small bowel movement and some flatus yesterday morning. And then it stopped. She went to [facility] for evaluation and treatment she had a computed tomography scan there that showed dilated loops concerning for a partial small bowel obstruction versus high-grade obstruction. And therefore she was transferred to [facility] to be evaluated by surgical service. Surgical service on consult for small bowel traction. Patient denies any fever or chills or sweats. Patient reports starting to pass gas this afternoon. PAST MEDICAL HISTORY: See list. PAST SURGICAL HISTORY: See list. MEDICATIONS: See list. ALLERGIES: See list. SOCIAL HISTORY: No illicit drug use. REVIEW OF SYSTEMS: CONSTITUTIONAL: Denies fever or chills. HEENT: Denies blurred vision, vision changes, or eye pain. Denies hemoptysis CARDIOVASCULAR: Denies chest pain or pressure. RESPIRATORY: No shortness of breath. GASTROINTESTINAL: See HPI for pertinent findings HEMATOLOGIC: Denies bleeding disorders. GENITOURINARY: Denies any blood in urine or increased urinary frequency. SKIN: Denies pruitis. Denies rash. PHYSICAL EXAM: VITAL SIGNS: Reviewed GENERAL: Well-developed in no acute distress. HEENT: No sclera icterus. Extraocular movements grossly intact. Moist buccal mucosa. Head is atraumatic, normocephalic. No nasal drainage. ABDOMEN: Soft. Mildly distended. Pain with palpation of the right side of the abdomen NEUROLOGIC: Alert and oriented. Cranial nerves II through XII grossly intact. LABORATORY DATA: WBC 10.5 hemoglobin 14 platelets 360 INR 1.0 sodium 140 creatinine 0.99 AST 39 ALT 20 IMAGING: KUB x-ray nonacute abdomen ASSESSMENT: 1. Abdominal pain with possible partial small bowel obstruction versus high- grade small bowel obstruction 2. Prior history of small bowel obstruction secondary to internal hernia status post exploratory laparotomy and lysis of adhesions in April 2020 PLAN: -Patient is now having flatus. We'll repeat computed tomography scan abdomen and pelvis with oral contrast for further evaluation of possible small bowel obstruction -Keep patient nothing by mouth -Continue IV fluids -Continue pain medication as needed -Continue antiemetics Thank you for this consultation Physician Employee Development Manager note has been reviewed by physician. Signing provider agrees with the documented findings, assessment, and plan of care. Past Medical History Past Medical History: COPD, GERD/Reflux, Hyperlipidemia, Hypertension Additional Past Medical History / Comment(s): SEPTIC WITH GALL BLADDER with PLEURAL EFFUSION 2006; ENLARGED LIVER, KIDNEY INFECTION also, [employer] [place] [employer], hx migraines, occ palpitations, chronic bronchitis, hiatal hernia, diverticulosis, lesion on liver, small bowel obstruction. History of Any Multi-Drug Resistant Organisms: None Reported Past Surgical History: Adenoidectomy, Appendectomy, Cholecystectomy, Hysterectomy, Joint Replacement, Orthopedic Surgery, Tonsillectomy Additional Past Surgical History / Comment(s): EGD, COLONOSCOPY, colton cataracts, rt carpal tunnel x 2, rt thumb arthroplasty, cubital tunnel repair rt elbow, left knee arthroscopy. Laparoscopic lysis of adhesions 12/02/2020 Past Anesthesia/Blood Transfusion Reactions: Motion Sickness Additional Past Anesthesia/Blood Transfusion Reaction / Comm: NO PROBLEMS WITH PRIOR BLOOD TRANSFUSION Past Psychological History: No Psychological Hx Reported Smoking Status: Current every day smoker Past Alcohol Use History: None Reported Additional Past Alcohol Use History / Comment(s): STARTED SMOKING 1967, 6-8 cigarettes per day. Past Drug Use History: None Reported - Past Family History Mother Family Medical History: No Reported History Additional Family Medical History / Comment(s): Alzheimers Father Family Medical History: Chest Pain / Angina, Hypertension Additional Family Medical History / Comment(s): PARKINSON,GOUT Sister(s) Family Medical History: Asthma, COPD Additional Family Medical History / Comment(s): Multiple sclerosis, passed a 50 Brother(s) Family Medical History: COPD, Hypertension Additional Family Medical History / Comment(s): GULLIAN BARRE Medications and Allergies Home Medications Medication Instructions Recorded Confirmed Type Cholecalciferol [Vitamin D3 (25 5,000 unit PO DAILY 08/06/15 03/29/21 History Mcg = 1000 Iu)] Pyridoxine [Vitamin B-6] 50 mg PO DAILY 08/06/15 03/29/21 History Cyanocobalamin [Vitamin B-12] 1,000 mcg PO DAILY 04/21/17 03/29/21 History Ezetimibe [Zetia] 10 mg PO HS 04/21/17 03/29/21 History Famotidine [Pepcid] 20 mg PO BID 04/21/17 03/29/21 History Acetaminophen [Tylenol Arthritis] 650 mg PO Q6HR PRN 04/10/20 03/29/21 History Aspirin [Adult Low Dose Aspirin EC] 81 mg PO DAILY 04/10/20 03/29/21 History Budesonide-Formot 160-4.5 Mcg 2 puff INHALATION RT-BID 04/10/20 03/29/21 History [Symbicort 160-4.5 Mcg Inhaler] Metoprolol Tartrate [Lopressor] 25 mg PO BID 04/10/20 03/29/21 History Albuterol Sulfate [Albuterol 1 puff PO RT-Q6H PRN 05/05/20 03/29/21 History Sulfate Hfa] Ibuprofen [Motrin] 600 mg PO Q6HR PRN #40 tab 12/02/20 03/29/21 Rx Ipratropium-Albuterol Nebulize 3 ml INHALATION RT-QID PRN 03/29/21 03/29/21 History [Duoneb 0.5 mg-3 mg/3 ml Soln] Losartan Potassium [Cozaar] 25 mg PO BID 03/29/21 03/29/21 History Metoclopramide [Reglan] 5 mg PO BID PRN 03/29/21 03/29/21 History Allergies Allergy/AdvReac Type Severity Reaction Status Date / Time amlodipine Allergy Swelling Verified 03/30/21 02:59 mercury (elemental) Allergy Unknown Verified 03/30/21 02:59 lisinopril AdvReac scratchy Verified 03/30/21 02:59 cough thimerosal AdvReac Abdominal Verified 03/30/21 02:59 Pain,fever,itchy & draining eyes Surgical - Exam Vital Signs Temp Pulse Resp BP Pulse Ox 99.4 F 82 18 134/93 93 L 03/29/21 19:38 03/29/21 19:38 03/29/21 19:38 03/29/21 19:38 03/29/21 19:38 Results - Labs 03/29/21 20:10 03/29/21 20:10 Abnormal Lab Results - Last 24 Hours (Table) 03/29/21 03/29/21 Range/Units 20:10 20:10 Neutrophils # 8.5 H (1.3-7.7) k/uL Chloride 111 H (98-107) mmol/L Carbon Dioxide 20 L (22-30) mmol/L BUN 18 H (7-17) mg/dL Glucose 102 H (74-99) mg/dL AST 39 H (14-36) U/L Diabetes panel 03/29/21 Range/Units 20:10 Sodium 140 (137-145) mmol/L Potassium 4.7 (3.5-5.1) mmol/L Chloride 111 H (98-107) mmol/L Carbon Dioxide 20 L (22-30) mmol/L BUN 18 H (7-17) mg/dL Creatinine 0.99 (0.52-1.04) mg/dL Glucose 102 H (74-99) mg/dL Calcium 9.9 (8.4-10.2) mg/dL AST 39 H (14-36) U/L ALT 20 (4-34) U/L Alkaline Phosphatase 76 (38-126) U/L Total Protein 6.8 (6.3-8.2) g/dL Albumin 4.2 (3.5-5.0) g/dL Calcium panel 03/29/21 Range/Units 20:10 Calcium 9.9 (8.4-10.2) mg/dL Albumin 4.2 (3.5-5.0) g/dL Pituitary panel 03/29/21 Range/Units 20:10 Sodium 140 (137-145) mmol/L Potassium 4.7 (3.5-5.1) mmol/L Chloride 111 H (98-107) mmol/L Carbon Dioxide 20 L (22-30) mmol/L BUN 18 H (7-17) mg/dL Creatinine 0.99 (0.52-1.04) mg/dL Glucose 102 H (74-99) mg/dL Calcium 9.9 (8.4-10.2) mg/dL Adrenal panel 03/29/21 Range/Units 20:10 Sodium 140 (137-145) mmol/L Potassium 4.7 (3.5-5.1) mmol/L Chloride 111 H (98-107) mmol/L Carbon Dioxide 20 L (22-30) mmol/L BUN 18 H (7-17) mg/dL Creatinine 0.99 (0.52-1.04) mg/dL Glucose 102 H (74-99) mg/dL Calcium 9.9 (8.4-10.2) mg/dL Total Bilirubin 0.3 (0.2-1.3) mg/dL AST 39 H (14-36) U/L ALT 20 (4-34) U/L Alkaline Phosphatase 76 (38-126) U/L Total Protein 6.8 (6.3-8.2) g/dL Albumin 4.2 (3.5-5.0) g/dL
--- NOTE | 2021-03-30 17:18 | CT ---
EXAMINATION TYPE: CT abdomen pelvis wo con DATE OF EXAM: 03/30/2021 COMPARISON: 03/29/2021. HISTORY: Epigastric abdominal pain and right lower quadrant pain. CT DLP: 228.9 mGycm Automated exposure control for dose reduction was used. TECHNIQUE: Helical acquisition of images was performed from the lung bases through the pelvis. FINDINGS: LUNG BASES: No significant abnormality is appreciated. LIVER/GB: No acute abnormality is appreciated. Cholecystectomy. PANCREAS: No significant abnormality is seen. SPLEEN: No significant abnormality is seen. ADRENALS: No significant abnormality is seen. KIDNEYS: No significant abnormality is seen. FREE AIR: No free air is visualized RETROPERITONEAL ADENOPATHY: None visualized REPRODUCTIVE ORGANS: No significant abnormality is seen URINARY BLADDER: No significant abnormality is seen. PELVIC ADENOPATHY: None visualized. OSSEOUS STRUCTURES: No acute abnormality is seen. Moderate L2-L3 spondylosis with grade 1 retrolisth esis at L2-L3 and anterolisthesis at L4-L5 BOWEL: No significant abnormality is seen. OTHER: Moderate to advanced atherosclerotic disease. IMPRESSION: NO ACUTE ABNORMALITY. CHRONIC AND INCIDENTAL FINDINGS ABOVE.
[2021-03-30] MEDS: SYMBICORT 160-4.5 MCG INHALER INHALATION SCH (19:41)
[2021-03-31] MEDS: ONDANSETRON 4 MG/2 ML VIAL IVP PRN ×3 (01:38→15:42)
[2021-03-31] MEDS: IPRATROPIUM-ALBUTEROL 3 ML NEB INHALATION SCH ×6 (03:09→23:17)
[2021-03-31] MEDS: SYMBICORT 160-4.5 MCG INHALER INHALATION SCH ×2 (08:05→18:57)
[2021-03-31] MEDS: METOPROLOL TARTRATE 25 MG TAB PO SCH ×2 (08:49→21:44)
[2021-03-31 08:50] LABS: Basophils # (A) 0.1 k/uL (0-0.2); Basophils % (A) 1 %; Eosinophils # (A) 0.3 k/uL (0-0.7); Eosinophils % (A) 3 %; HCT 39.2 % (34.0-46.0); HGB 13.2 gm/dL (11.4-16.0); Lymphocytes % (A) 26 %; MCH 33.4 pg (25.0-35.0); MCHC 33.6 g/dL (31.0-37.0); MCV 99.3 fL (80.0-100.0); Mean Platelet Volume 6.9; Monocytes # (A) 0.5 k/uL (0-1.0); Monocytes % (A) 6 %; Neutrophils # (A) 4.8 k/uL (1.3-7.7); Neutrophils % (A) 61 %; Platelet Count 238 k/uL (150-450); RBC 3.95 m/uL (3.80-5.40); RDW 12.7 % (11.5-15.5); WBC 7.8 k/uL (3.8-10.6)
[2021-03-31 09:04] LABS: Albumin 3.2 g/dL (3.5-5.0); Bilirubin,Unconjugated 0.3 mg/dL (0.0-1.1); Calcium 8.9 mg/dL (8.4-10.2); Magnesium 1.8 mg/dL (1.6-2.3); Potassium 4.4 mmol/L (3.5-5.1); Total Bilirubin 0.3 mg/dL (0.2-1.3); Total Protein 5.7 g/dL (6.3-8.2)
--- NOTE | 2021-03-31 13:49 | P.PN ---
Subjective This is a pleasant 71 years old female with past medical history of COPD, GERD, hypertension, hyperlipidemia, migraine, She presents because of upper and right-sided abdominal pain 5/10 in severity. She was transferred from [facility] with possible small bowel obstruction. Is that her abdominal pain was 10/10 when it started yesterday, mainly in the right and upper abdomen, radiating through the back. Nonspecific in character. Associated with nausea but no vomiting. last bowel movement was yesterday. No bowel movement or passing gas today but her abdominal pain feels better at 5/10 On reviewing the records from [facility] Single supine view of the abdomen showing no marcel obstruction with findings suggestive of a small bowel ileus in the left upper and central abdomen. CT of the abdomen and pelvis with contrast: Distended loops of fluid-filled small bowel in the low pelvic region. No abscess. No perforation or pneumatosis. This might reflect partial small bowel obstruction versus high-grade small bowel obstruction. Distended urinary bladder. Mild subclinical enlargement WBC is normal at 8.4, hemoglobin 14.8, platelets 365 k. INR 0.9, sodium 142, potassium 4.4, creatinine 1.1. ALT 24 and AST mildly high at 38. Lipase normal at 98, lactate is normal at 2.0 Vitas looks stable, blood pressure on the high side 161/70 Repeat labs show an unremarkable CBC, INR, BMP and liver enzymes. KUB: Emely anne acute abdomen Surgery team were consulted In the emergency room she will received 1 dose of Zosyn and continued with normal saline at 1 30 mL/h 03/31/21 Patient still have some right sided abdominal pain and tenderness although it looks better than yesterday. She is passing gas but no bowel movement, no vomiting today. She was nothing by mouth but surgery team starting her on diet today. Labs and vitals are stable. Repeat CT of abdomen and pelvis yesterday showing no evidence of acute abdomen with chronic findings as per report. No leukocytosis or fever or other evidence of infection Continue with gentle hydration for now and follow-up as surgical team recommendation Objective - Vital Signs Vital signs: Vital Signs Temp 98.3 F 03/31/21 08:25 Pulse 60 03/31/21 12:27 Resp 18 03/31/21 08:25 BP 108/62 03/31/21 08:25 Pulse Ox 94 L 03/31/21 08:25 Intake & Output 03/30/21 03/31/21 03/31/21 18:59 06:59 18:59 Intake Total 0 Output Total 300 1000 Balance -300 -1000 Weight 53.2 kg Intake: Oral 0 Output: Urine 300 1000 Other: Voiding Method Toilet Toilet # Voids 1 - Exam GENERAL: The patient is alert and oriented x3, not in any acute distress. Well developed, well nourished. HEENT: Pupils are round and equally reacting to light. EOMI. No scleral icterus. No conjunctival pallor. Normocephalic, atraumatic. No pharyngeal erythema. No thyromegaly. CARDIOVASCULAR: S1 and S2 present. No murmurs, rubs, or gallops. PULMONARY: Chest is clear to auscultation, no wheezing or crackles. -ABDOMEN: Soft, nontende right-sided tenderness with no rebound tenderness r, nondistended, normoactive bowel sounds. No palpable organomegaly. MUSCULOSKELETAL: No joint swelling or deformity. EXTREMITIES: No cyanosis, clubbing, or pedal edema. NEUROLOGICAL: Gross neurological examination did not reveal any focal deficits. SKIN: No rashes. no petechiae. - Labs CBC & Chem 7: 03/31/21 08:01 03/31/21 08:01 Labs: Abnormal Lab Results - Last 24 Hours (Table) 03/31/21 Range/Units 08:01 Chloride 112 H (98-107) mmol/L Glucose 52 L (74-99) mg/dL Total Protein 5.7 L (6.3-8.2) g/dL Albumin 3.2 L (3.5-5.0) g/dL Assessment and Plan Assessment: Acute small bowel obstruction History of GERD Hypertension Hyperlipidemia History of migraine OPD, no acute exacerbation Plan: this is a pleasant 71 years old female who presents with bowel obstruction. To continue with bowel rest, advance diet as per surgery team Osiris with IV fluids and pain management Surgery team consult Currently patient is nothing by mouth we will resume diet was cleared by surgery team Labs and medication were reviewed.. Continue same treatment. Continue with symptomatic treatment. Resume home medication. Monitor lytes and vitals. DVT and GI prophylaxis. Further recommendations depends on the clinical course of the patient DVT prophylaxis: Subcutaneous heparin GI Prophylaxis: Pepcid PT/OT: Pending Prognosis is guarded
[2021-03-31] MEDS: MORPHINE SULFATE 4 MG/ML SYRINGE IV PRN (14:09)
[2021-03-31] MEDS: SODIUM CHLORIDE 0.9% 1,000 ML IV SCH ×3 (14:10→21:42)
--- NOTE | 2021-03-31 14:53 | P.PN ---
Subjective Progress Note Date: 03/31/21 CHIEF COMPLAINT: Abdominal pain HISTORY OF PRESENT ILLNESS: Patient is being followed for possible partial small bowel obstruction. Patient reports a decrease in her abdominal pain. She states that she is still having some pain noted on the right side with nausea. No vomiting. She is having flatus. No bowel movement. Overall she feels better than on admission. Computed tomography scan of the abdomen and pelvis shows no acute abnormality. Afebrile WBC 7.8 hemoglobin 13.2 creatinine 0.89 patient tolerated clear liquid diet PHYSICAL EXAM: VITAL SIGNS: Reviewed. GENERAL: Well-developed in no acute distress. HEENT: No sclera icterus. Extraocular movements grossly intact. Moist buccal mucosa. Head is atraumatic, normocephalic. ABDOMEN: Soft. Nondistended. Nontender. NEUROLOGIC: Alert and oriented. Cranial nerves II through XII grossly intact. ASSESSMENT: 1. Abdominal pain with possible partial small bowel obstruction now resolved with conservative treatment PLAN: -No surgical intervention planned -Continue conservative management -Advance diet to full liquids -Add ensure -Encourage patient to ambulate -Anticipate Possible discharge tomorrow Physician Telephone Clerk note has been reviewed by physician. Signing provider agrees with the documented findings, assessment, and plan of care. Objective - Vital Signs Vital signs: Vital Signs Temp 98.2 F 03/31/21 14:14 Pulse 66 03/31/21 14:14 Resp 18 03/31/21 14:14 BP 102/68 03/31/21 14:14 Pulse Ox 95 03/31/21 14:14 Intake & Output 03/30/21 03/31/21 03/31/21 18:59 06:59 18:59 Intake Total 0 Output Total 300 1000 Balance -300 -1000 Weight 53.2 kg Intake: Oral 0 Output: Urine 300 1000 Other: Voiding Method Toilet Toilet # Voids 1 1 - Labs CBC & Chem 7: 03/31/21 08:01 03/31/21 08:01 Labs: Abnormal Lab Results - Last 24 Hours (Table) 03/31/21 Range/Units 08:01 Chloride 112 H (98-107) mmol/L Glucose 52 L (74-99) mg/dL Total Protein 5.7 L (6.3-8.2) g/dL Albumin 3.2 L (3.5-5.0) g/dL
[2021-04-01] MEDS: SODIUM CHLORIDE 0.9% 1,000 ML IV SCH ×3 (00:33→15:00)
[2021-04-01] MEDS: MORPHINE SULFATE 4 MG/ML SYRINGE IV PRN (00:33)
[2021-04-01] MEDS: IPRATROPIUM-ALBUTEROL 3 ML NEB INHALATION SCH ×6 (03:45→22:56)
[2021-04-01] MEDS: ONDANSETRON 4 MG/2 ML VIAL IVP PRN ×2 (07:59→20:28)
[2021-04-01] MEDS: METOPROLOL TARTRATE 25 MG TAB PO SCH ×2 (08:01→20:28)
[2021-04-01] MEDS: SYMBICORT 160-4.5 MCG INHALER INHALATION SCH ×2 (08:34→19:45)
[2021-04-01] MEDS: HYDROcodone/APAP 5-325MG 1 EACH TAB PO PRN (11:21)
--- NOTE | 2021-04-01 14:55 | P.PN ---
Subjective Progress Note Date: 04/01/21 CHIEF COMPLAINT: Abdominal pain HISTORY OF PRESENT ILLNESS: Patient is being followed for possible partial small bowel obstruction. Patient reports a decrease in her abdominal pain. She states that she is still having some pain noted on the right side with nausea. Patient reports that each day her pain is getting better. No vomiting. She is having flatus. No bowel movement. Overall she feels better than on admission. Computed tomography scan of the abdomen and pelvis shows no acute abnormality. Afebrile PHYSICAL EXAM: VITAL SIGNS: Reviewed. GENERAL: Well-developed in no acute distress. HEENT: No sclera icterus. Extraocular movements grossly intact. Moist buccal mucosa. Head is atraumatic, normocephalic. ABDOMEN: Soft. Nondistended. Nontender. NEUROLOGIC: Alert and oriented. Cranial nerves II through XII grossly intact. ASSESSMENT: 1. Abdominal pain with possible partial small bowel obstruction improving with conservative management PLAN: -No surgical intervention planned -Continue conservative management -Advance diet to regular -Encourage patient to ambulate Physician Professor Of Music note has been reviewed by physician. Signing provider agrees with the documented findings, assessment, and plan of care. Objective - Vital Signs Vital signs: Vital Signs Temp 98.2 F 04/01/21 14:09 Pulse 69 04/01/21 14:09 Resp 16 04/01/21 14:09 BP 112/66 04/01/21 14:09 Pulse Ox 99 04/01/21 14:09 Intake & Output 03/31/21 04/01/21 04/01/21 18:59 06:59 18:59 Intake Total 200 Balance 200 Weight 53.2 kg Intake: Oral 200 Other: Voiding Method Toilet # Voids 1 2 - Labs CBC & Chem 7: 03/31/21 08:01 03/31/21 08:01
[2021-04-01] MEDS: DOCUSATE 100 MG CAP PO SCH (20:28)
--- NOTE | 2021-04-01 20:42 | P.PN ---
Subjective This is a pleasant 71 years old female with past medical history of COPD, GERD, hypertension, hyperlipidemia, migraine, She presents because of upper and right-sided abdominal pain 5/10 in severity. She was transferred from [facility] with possible small bowel obstruction. Is that her abdominal pain was 10/10 when it started yesterday, mainly in the right and upper abdomen, radiating through the back. Nonspecific in character. Associated with nausea but no vomiting. last bowel movement was yesterday. No bowel movement or passing gas today but her abdominal pain feels better at 5/10 On reviewing the records from [facility] Single supine view of the abdomen showing no marcel obstruction with findings suggestive of a small bowel ileus in the left upper and central abdomen. CT of the abdomen and pelvis with contrast: Distended loops of fluid-filled small bowel in the low pelvic region. No abscess. No perforation or pneumatosis. This might reflect partial small bowel obstruction versus high-grade small bowel obstruction. Distended urinary bladder. Mild subclinical enlargement WBC is normal at 8.4, hemoglobin 14.8, platelets 365 k. INR 0.9, sodium 142, potassium 4.4, creatinine 1.1. ALT 24 and AST mildly high at 38. Lipase normal at 98, lactate is normal at 2.0 Vitas looks stable, blood pressure on the high side 161/70 Repeat labs show an unremarkable CBC, INR, BMP and liver enzymes. KUB: Emely anne acute abdomen Surgery team were consulted In the emergency room she will received 1 dose of Zosyn and continued with normal saline at 1 30 mL/h 03/31/21 Patient still have some right sided abdominal pain and tenderness although it looks better than yesterday. She is passing gas but no bowel movement, no vomiting today. She was nothing by mouth but surgery team starting her on diet today. Labs and vitals are stable. Repeat CT of abdomen and pelvis yesterday showing no evidence of acute abdomen with chronic findings as per report. No leukocytosis or fever or other evidence of infection Continue with gentle hydration for now and follow-up as surgical team recommendation 04/01/2021 Patient tolerated 25-100% of her diet. Patient resume diet by surgery team. Still have some right abdominal pain, [place] as provided Other than that she's hemodynamically stable. No labs. Lower IV fluids to 75 mL/h Possible discharge in 24-48 hours if she keeps improving Objective - Vital Signs Vital signs: Vital Signs Temp 98.0 F 04/01/21 08:02 Pulse 64 04/01/21 11:56 Resp 16 04/01/21 08:02 BP 97/58 04/01/21 09:51 Pulse Ox 96 04/01/21 08:02 Intake & Output 03/31/21 04/01/21 04/01/21 18:59 06:59 18:59 Intake Total 200 Balance 200 Weight 53.2 kg Intake: Oral 200 Other: Voiding Method Toilet # Voids 1 2 - Exam GENERAL: The patient is alert and oriented x3, not in any acute distress. Well developed, well nourished. HEENT: Pupils are round and equally reacting to light. EOMI. No scleral icterus. No conjunctival pallor. Normocephalic, atraumatic. No pharyngeal erythema. No thyromegaly. CARDIOVASCULAR: S1 and S2 present. No murmurs, rubs, or gallops. PULMONARY: Chest is clear to auscultation, no wheezing or crackles. -ABDOMEN: Soft, nontende right-sided tenderness with no rebound tenderness r, nondistended, normoactive bowel sounds. No palpable organomegaly. MUSCULOSKELETAL: No joint swelling or deformity. EXTREMITIES: No cyanosis, clubbing, or pedal edema. NEUROLOGICAL: Gross neurological examination did not reveal any focal deficits. SKIN: No rashes. no petechiae. - Labs CBC & Chem 7: 03/31/21 08:01 03/31/21 08:01 Assessment and Plan Assessment: Acute small bowel obstruction History of GERD Hypertension Hyperlipidemia History of migraine OPD, no acute exacerbation Plan: this is a pleasant 71 years old female who presents with bowel obstruction. advance diet as per surgery team Monitor for bowel movement Surgery team consult Currently patient is nothing by mouth we will resume diet was cleared by surgery team Labs and medication were reviewed.. Continue same treatment. Continue with symptomatic treatment. Resume home medication. Monitor lytes and vitals. DVT and GI prophylaxis. Further recommendations depends on the clinical course of the patient DVT prophylaxis: Subcutaneous heparin GI Prophylaxis: Pepcid
[2021-04-02] MEDS: SODIUM CHLORIDE 0.9% 1,000 ML IV SCH (01:01)
[2021-04-02 01:31] VITALS: TEMP 97.5
[2021-04-02] MEDS: IPRATROPIUM-ALBUTEROL 3 ML NEB INHALATION SCH ×3 (03:29→11:47)
[2021-04-02] MEDS: ONDANSETRON 4 MG/2 ML VIAL IVP PRN (05:50)
[2021-04-02] MEDS: HYDROcodone/APAP 5-325MG 1 EACH TAB PO PRN (05:51)
[2021-04-02] MEDS: METOPROLOL TARTRATE 25 MG TAB PO SCH (08:25)
[2021-04-02] MEDS: DOCUSATE 100 MG CAP PO SCH (08:25)
[2021-04-02] MEDS: SYMBICORT 160-4.5 MCG INHALER INHALATION SCH (08:32)
[2021-04-02 09:00] VITALS: RESP 18
--- NOTE | 2021-04-02 11:43 | P.PN ---
Subjective Progress Note Date: 04/02/21 CHIEF COMPLAINT: Abdominal pain HISTORY OF PRESENT ILLNESS: Patient is being followed for possible partial small bowel obstruction. Patient had been complaining of some right abdominal discomfort this morning. Her pain has improved after having a bowel movement. She had minimal nausea this morning. Again she is feeling better after the bowel movement. She is also having flatus. She is tolerating diet. She's afebrile. PHYSICAL EXAM: VITAL SIGNS: Reviewed. GENERAL: Well-developed in no acute distress. HEENT: No sclera icterus. Extraocular movements grossly intact. Moist buccal mucosa. Head is atraumatic, normocephalic. ABDOMEN: Soft. Nondistended. Minimal tenderness right side abdomen NEUROLOGIC: Alert and oriented. Cranial nerves II through XII grossly intact. ASSESSMENT: 1. Abdominal pain with possible partial small bowel obstruction improved with conservative management PLAN: -No surgical intervention planned -Patient can be discharge from surgical standpoint Physician Behavior Support Specialist note has been reviewed by physician. Signing provider agrees with the documented findings, assessment, and plan of care. Objective - Vital Signs Vital signs: Vital Signs Temp 97.5 F L 04/02/21 01:30 Pulse 74 04/02/21 08:42 Resp 18 04/02/21 08:20 BP 175/79 04/02/21 08:20 Pulse Ox 96 04/02/21 08:20 Intake & Output 04/01/21 04/02/21 04/02/21 18:59 06:59 18:59 Intake Total 600 500 Balance 600 500 Weight 53.2 kg Intake: Oral 600 500 Other: Voiding Method Toilet # Voids 2 2 - Labs CBC & Chem 7: 03/31/21 08:01 03/31/21 08:01
[2021-04-02] MEDS ORDERED: LOSARTAN 25 MG TAB PO STA (12:06)
[2021-04-02 13:41] VITALS: PULSE 75
[2021-04-02 14:18] VITALS: BP 160/77
--- NOTE | 2021-04-03 00:03 | P.DS ---
Providers Date of admission: 03/30/21 09:58 Attending physician: Jody Hills Consults: 03/29/21 23:04 Consult Physician Stat Consulting Provider: Blas Hooker Consult Reason/Comments: SBO Do you want consulting provider notified?: Yes Primary care physician: Carol Townsend Hospital Course: Diagnoses: Acute small bowel obstruction History of GERD Hypertension Hyperlipidemia History of migraine COPD, no acute exacerbation Hospital course This is a pleasant 71 years old female with past medical history of COPD, GERD, hypertension, hyperlipidemia, migraine, She presents because of upper and right-sided abdominal pain 5/10 in severity. She was transferred from [facility] with possible small bowel obstruction. However repeat KUB and CAT scan of the abdomen showing no evidence of bowel obstruction which resolved. Patient pain is controlled with occasional [place], patient diet resumed and she had bowel movement on the day of discharge. Patient has been evaluated by surgery team will clear her to go home today and follow-up as an outpatient On the day of discharge patient is mobile freely, no chest pain or dyspnea. Abdominal pain is controlled. no nausea or vomiting. No fever Patient was cleared for discharge by surgery team Problems and management plan were discussed with the patient and he verbalized understanding and acceptance Patient was found stable and can be discharged home however he needs follow-up as an outpatient. Patient was instructed to follow up with PCP Dr. Townsend within one week and patient agrees atient was instructed to follow up with Dr. Palomino on and she agrees Physical exam Gen: patient is a AAOx3, no distress CVS: S1-S2, RRR, no murmur Lungs: B/L CTA, no wheezing Abdomen: soft, no distention, no tenderness, positive bowel sounds Extremity: no leg edema or induration Time spent more than 35 minutes Patient Condition at Discharge: Stable Plan - Discharge Summary Discharge Rx Participant: No New Discharge Prescriptions: Continue Pyridoxine [Vitamin B-6] 50 mg PO DAILY Cholecalciferol [Vitamin D3 (25 Mcg = 1000 Iu)] 5,000 unit PO DAILY Cyanocobalamin [Vitamin B-12] 1,000 mcg PO DAILY Ezetimibe [Zetia] 10 mg PO HS Famotidine [Pepcid] 20 mg PO BID Acetaminophen [Tylenol Arthritis] 650 mg PO Q6HR PRN PRN Reason: Pain Budesonide-Formot 160-4.5 Mcg [Symbicort 160-4.5 Mcg Inhaler] 2 puff INHALATION RT-BID Metoprolol Tartrate [Lopressor] 25 mg PO BID Aspirin [Adult Low Dose Aspirin EC] 81 mg PO DAILY Albuterol Sulfate [Albuterol Sulfate Hfa] 1 puff PO RT-Q6H PRN PRN Reason: Shortness Of Breath Metoclopramide [Reglan] 5 mg PO BID PRN PRN Reason: Nausea Ipratropium-Albuterol Nebulize [Duoneb 0.5 mg-3 mg/3 ml Soln] 3 ml INHALATION RT-QID PRN PRN Reason: Shortness Of Breath Losartan Potassium [Cozaar] 25 mg PO BID Discontinued Ibuprofen [Motrin] 600 mg PO Q6HR PRN #40 tab PRN Reason: Pain Discharge Medication List Cholecalciferol [Vitamin D3 (25 Mcg = 1000 Iu)] 5,000 unit PO DAILY 08/06/15 [History] Pyridoxine [Vitamin B-6] 50 mg PO DAILY 08/06/15 [History] Cyanocobalamin [Vitamin B-12] 1,000 mcg PO DAILY 04/21/17 [History] Ezetimibe [Zetia] 10 mg PO HS 04/21/17 [History] Famotidine [Pepcid] 20 mg PO BID 04/21/17 [History] Acetaminophen [Tylenol Arthritis] 650 mg PO Q6HR PRN 04/10/20 [History] Aspirin [Adult Low Dose Aspirin EC] 81 mg PO DAILY 04/10/20 [History] Budesonide-Formot 160-4.5 Mcg [Symbicort 160-4.5 Mcg Inhaler] 2 puff INHALATION RT-BID 04/10/20 [History] Metoprolol Tartrate [Lopressor] 25 mg PO BID 04/10/20 [History] Albuterol Sulfate [Albuterol Sulfate Hfa] 1 puff PO RT-Q6H PRN 05/05/20 [History] Ipratropium-Albuterol Nebulize [Duoneb 0.5 mg-3 mg/3 ml Soln] 3 ml INHALATION RT-QID PRN 03/29/21 [History] Losartan Potassium [Cozaar] 25 mg PO BID 03/29/21 [History] Metoclopramide [Reglan] 5 mg PO BID PRN 03/29/21 [History] Follow up Appointment(s)/Referral(s): Carol Townsend MD [Primary Care Provider] - 1-2 days Blas Hooker MD [STAFF PHYSICIAN] - 04/08/21 2:45 pm Activity/Diet/Wound Care/Special Instructions: Resume previous diet Activity is restricted till you see your doctor Any symptoms worse than what brought you in, return to the ER Fever, chills, worsening pain, please notify your doctor Discharge Disposition: HOME SELF-CARE
== END 2021-04-02 14:45 | disposition home or self-care (01) | DRG 389 ==
LOC: EC 19:26 → 6NMEDSUR 22:42 → 6PED 03-30 00:41 → OBSVTOIN 03-30 09:58
PROVIDERS: ADMIT Hospitalist; ATTEND Hospitalist
DX: K56.609 Unspecified intestinal obstruction, unspecified as to partial versus complete obstruction (principal); K46.0 Unspecified abdominal hernia with obstruction, without gangrene; J44.9 Chronic obstructive pulmonary disease, unspecified; K21.9 Gastro-esophageal reflux disease without esophagitis; I10 Essential (primary) hypertension; Z79.51 Long term (current) use of inhaled steroids; Z79.82 Long term (current) use of aspirin; Z79.899 Other long term (current) drug therapy; Z82.0 Family history of epilepsy and other diseases of the nervous system; Z82.49 Family history of ischemic heart disease and other diseases of the circulatory system; Z82.5 Family history of asthma and other chronic lower respiratory diseases; Z90.49 Acquired absence of other specified parts of digestive tract; Z90.710 Acquired absence of both cervix and uterus; G43.909 Migraine, unspecified, not intractable, without status migrainosus; H26.9 Unspecified cataract; K44.9 Diaphragmatic hernia without obstruction or gangrene; K57.90 Diverticulosis of intestine, part unspecified, without perforation or abscess without bleeding; E78.5 Hyperlipidemia, unspecified; F17.200 Nicotine dependence, unspecified, uncomplicated; K46.9 Unspecified abdominal hernia without obstruction or gangrene
CPT/HCPCS: 36415; 74018; 74176; 80048; 80053; 80076; 83735; 85025; 85610; 85730; 94640; 96361; 96374; 96375; 99285

== ENCOUNTER → 2021-05-24 | Outpatient (CLI) | payer MEDICARE ==
--- NOTE | 2021-05-24 15:14 | MR ---
MRCP HISTORY: Abdominal pain Multiplanar multisequence imaging obtained through the abdomen with three-dimensional reconstructions performed through the biliary tree on a separate workstation. Correlation to CT scan 03/30/2021 There is an underlying scoliosis. Degenerative disc changes are present in the visualized spine. The liver Dinorah limit of normal for size. Patient is post cholecystectomy. Dilation of the biliar y tree could be due to postcholecystectomy change. There is no evident filling defect to suggest chol edocholithiasis. Pancreas is otherwise within normal limits. There is no retroperitoneal adenopathy. Aorta shows normal caliber. There is no ascites. Probable cortical cysts are associated with the left kidney. Spleen is not enlarged. Adrenal glands are unremarkable. IMPRESSION: Postcholecystectomy change as described. Scoliosis. Renal cortical cysts.
== END | disposition home or self-care (01) ==
LOC: RADMRIMAIN 12:25
PROVIDERS: ATTEND Internal Medicine
DX: N28.1 Cyst of kidney, acquired (principal); Z90.49 Acquired absence of other specified parts of digestive tract
CPT/HCPCS: 74181

== ENCOUNTER → 2021-11-04 | Outpatient (CLI) | payer MEDICARE ==
--- NOTE | 2021-11-04 12:42 | FL ---
EXAMINATION TYPE: FL UGI air w small bowel DATE OF EXAM: 11/04/2021 COMPARISON: CT dated 03/30/2021 HISTORY: Right abdominal pain for one year. TECHNIQUE: A double contrast UGI study is performed with small bowel follow through. A total of 3 m inutes and 44 seconds of fluoroscopic time was utilized during procedure . 9 x-ray images and 39 spot images were sent to PACS. FINDINGS: [employer] image of the abdomen shows previous cholecystectomy, degenerative changes and dextro scoliosis of the lumbar spine. Arterial atherosclerotic calcifications. The esophagus shows normal motility and emptying into the stomach. Questionable very small transient hiatal hernia. The stomach shows normal distensibility, peristalsis, and mucosal folds. No evidence of any mass or ulcer disease. No significant esophageal reflux was seen during real time performance of this study. The duodenal bulb and sweep are unremarkable. The small bowel study shows transit to the colon in less than 160 minutes. There is normal mucosal f old pattern throughout the small bowel. There is no evidence of any stricture or obvious filling def ect noted. Clumping of small bowel loops in the pelvis likely due to the patient's body habitus. Mica sly unremarkable terminal ileum. IMPRESSION: Grossly unremarkable upper GI study and small bowel follow through as described above.
== END | disposition home or self-care (01) ==
LOC: RADFLMAIN 07:44
PROVIDERS: ATTEND Surgery
DX: R11.0 Nausea (principal); R10.84 Generalized abdominal pain
CPT/HCPCS: 74240; 74248

== ENCOUNTER → 2021-11-16 | Outpatient (CLI) | payer MEDICARE ==
--- NOTE | 2021-11-16 22:29 | BD ---
EXAMINATION TYPE: Axial Bone Density DATE OF EXAM: 11/16/2021 COMPARISON: NONE CLINICAL HISTORY: 71 years year old Female. ICD-10 CODE: M85.89 disorder of bone Height: 56.25 Weight: 119.6 FRAX RISK QUESTIONS: Alcohol (3 or more units per day): NO Family History (Parent hip fracture): NO Glucocorticoids (More than 3mos): NO (Ex: prednisone, prednisolone, methylprednisolone, dexamethasone, and hydrocortisone). History of Fracture in Adulthood: YES Secondary Osteoporosis: 1. Type 1 Diabetes: NO 2. Hyperthyroidism: NO 3. Menopause before 45: NO 4. Malnutrition: NO 5. Chronic liver disease: NO Rheumatoid Arthritis: NO Current Tobacco Use: YES RISK FACTORS HISTORY OF: Hip Fracture (Right/Left): NO Spine Fracture: NO History of Wrist Fracture: NO Surgery to Spine/Hip(right/left)/Wrist (right/left): carpal tunnel x2 Rt Wrist, When: at age 62 Family History of Osteoporosis: NO Active: YES Diet low in dairy products/other sources of calcium: YES Postmenopausal woman: YES Take estrogen and/or progesterone medications: NO Lost more than 2 inches in height since high school: YES Frequent falls: NO Poor Health: NO Hyperparathyroidism: NO Adrenal Insufficiency: NO MEDICATIONS: Prednisone or other steroids: NO Thyroid Medications: NO Osteoporosis Medications: NO Additional Medications: SEE MED LIST Additional History: EXAM MEASUREMENTS: Bone mineral densitometry was performed using the [facility]. Bone mineral density as measured about the Lumbar spine is: ----- L1-L4(G/cm2): 0.875 T Score Values are as follows: ----- L1: -4.1 ----- L2: -2.3 ----- L3: -1.9 ----- L4: -2.2 ----- L1-L4: -2.5 BASELINE Bone mineral density about the R hip (g/cm2): 0.665 Bone mineral density about the L hip (g/cm2)0.647 T Score values are as follows: -----R Neck: -2.7 -----L Neck: -2.8 -----R Total: -3.6 -----L Total: -3.5 BASELINE FRAX%s: The graph provided illustrates a 29% chance for a major osteoporotic fx and a 12.8% chance fo r the hips probability for fx in 10 years time. IMPRESSION: Osteoporosis (T Score less than -2.5). There is increased fracture risk and therapy is usually indicated based on age. Re-Screen 1-2 years. NOTE: T-SCORE=SD OF THE YOUNG ADULT MEAN.
--- NOTE | 2021-11-17 13:33 | MM ---
Reason for exam: screening (asymptomatic). Last mammogram was performed 3 years and 5 months ago. History: Patient is postmenopausal. Took hormonal contraceptives for 5 years beginning at age 22. Physical Findings: A clinical breast exam by your physician is recommended on an annual basis and results should be correlated with mammographic findings. MG 3D Screening Mammo W/Cad Bilateral CC and MLO view(s) were taken. Prior study comparison: June 25, 2018, bilateral MG 3d screening mammo w/cad. April 24, 2017, bilateral MG 3d diag mammo w/cad [facility]. The breast tissue is extremely dense which could obscure a lesion on mammography. There is no discrete abnormality. ASSESSMENT: Negative, BI-RAD 1 RECOMMENDATION: Routine screening mammogram of both breasts in 1 year.
== END | disposition home or self-care (01) ==
LOC: RADMAMWWP 14:22
PROVIDERS: ATTEND Internal Medicine
DX: Z12.31 Encounter for screening mammogram for malignant neoplasm of breast (principal); M81.0 Age-related osteoporosis without current pathological fracture; Z78.0 Asymptomatic menopausal state
CPT/HCPCS: 77063; 77067; 77080

== ENCOUNTER 2022-03-01 07:23 | Day surgery (SDC) | payer MEDICARE ==
[2022-02-25 11:15] VITALS: BMI 19.5
[~2022-03-01 07:23] MED LIST changes: -ACETAMINOPHEN TAB 500 MG TAB PO PRN; -DEXAMETHASONE SOD PHOSPHATE 4 MG/ML 1 ML VIAL IV ONE; -HEPARIN SODIUM,PORCINE/PF 5,000 UNIT/0.5 ML SYRINGE SQ PRN; -MIDAZOLAM 2 MG/2 ML VIAL IV PRN; -ONDANSETRON 4 MG/2 ML VIAL IVP ONE
[2022-03-01 08:09] VITALS: TEMP 97.8
[2022-03-01] MEDS ORDERED: PROPOFOL 10 MG/ML 20 ML VIAL IV ONE (08:42)
--- NOTE | 2022-03-01 09:01 | P.PCN ---
Date of Procedure: 03/01/22 Procedure(s) Performed: BRIEF HISTORY: Patient is a 71-year-old pleasant white female scheduled for an elective colonoscopy as a part of screening for colorectal neoplasia PROCEDURE PERFORMED: Colonoscopy with snare polypectomy. PREOPERATIVE DIAGNOSIS: Screening for colon cancer. IV sedation per Anesthesia. PROCEDURE: After informed consent was obtained, the patient, was brought into the endoscopy unit. IV sedation was administered by Anesthesia under continuous monitoring. Digital rectal examination was normal. Initially the Olympus CF-160 flexible video colonoscope was then inserted in the rectum, gradually advanced into the cecum without any difficulty. Careful examination was performed as the scope was gradually being withdrawn. Ileocecal valve and the appendiceal orifice were visualized and appeared normal. Prep was excellent. Mucosa of the cecum, appeared normal. In the ascending colon there was a 1 segment of flat polyp removed by snare polypectomy. Rest ascending colon, transverse colon, descending colon, sigmoid colon, and rectum appeared normal. Moderate sigmoid diverticulosis. Retroflexion was performed in the rectum and no lesions were seen. The patient tolerated the procedure well. IMPRESSION: 1 cm flat ascending colon polyp status post polypectomy Moderate sigmoid diverticulosis RECOMMENDATIONS: Findings of this examination were discussed with the patient as well as her family. She was advised to follow with the biopsy results. If the biopsy reveals adenoma she can have a repeat colonoscopy in 3 years..
[2022-03-01 09:19] VITALS: BP 159/72; PULSE 75; RESP 16
== END 2022-03-01 09:35 | disposition home or self-care (01) ==
LOC: ORWHC2ENDO 07:23
PROVIDERS: ATTEND Internal Medicine Gastroenterology
DX: Z12.11 Encounter for screening for malignant neoplasm of colon (principal); D12.2 Benign neoplasm of ascending colon; K57.30 Diverticulosis of large intestine without perforation or abscess without bleeding; J44.9 Chronic obstructive pulmonary disease, unspecified; F17.200 Nicotine dependence, unspecified, uncomplicated; K21.9 Gastro-esophageal reflux disease without esophagitis; Z90.49 Acquired absence of other specified parts of digestive tract; Z90.710 Acquired absence of both cervix and uterus; Z97.2 Presence of dental prosthetic device (complete) (partial); Z98.890 Other specified postprocedural states; Z79.1 Long term (current) use of non-steroidal anti-inflammatories (NSAID); Z79.82 Long term (current) use of aspirin; Z79.899 Other long term (current) drug therapy; Z88.8 Allergy status to other drugs, medicaments and biological substances
CPT/HCPCS: 88305; 45385; J2704

== ENCOUNTER → 2023-11-27 | Outpatient (CLI) | payer MEDICARE ==
--- NOTE | 2023-11-27 19:33 | BD ---
EXAMINATION TYPE: Axial Bone Density DATE OF EXAM: 11/27/2023 CLINICAL HISTORY: 73 years old Female. ICD-10 CODE: N95.8 OTHER SPECIFIED MENOPAUSAL AND PERIMENOPAU SA Height: 66 Weight: 113.6 FRAX RISK QUESTIONS: Alcohol (3 or more units per day): no Family History (Parent hip fracture): no Glucocorticoids (More than 3mos): no (Ex: prednisone, prednisolone, methylprednisolone, dexamethasone, and hydrocortisone). History of Fracture in Adulthood: no Secondary Osteoporosis: 1. Type 1 Diabetes: no 2. Hyperthyroidism: no 3. Menopause before 45: no 4. Malnutrition: no 5. Chronic liver disease: no Rheumatoid Arthritis: no Current Tobacco Use: no RISK FACTORS HISTORY OF: Surgery to Spine/Hip(right/left)/Wrist (right/left): no EXAM MEASUREMENTS: Bone mineral densitometry was performed using the [employer]. Bone mineral density as measured about the Lumbar spine is: ----- L1-L4(G/cm2): 0.856 T Score Values are as follows: ----- L1: -4.3 ----- L2: -2.5 ----- L3: -2.4 ----- L4: -2.1 ----- L1-L4: -2.7 Z Score Values are as follows: ----- L1: -2.1 ----- L2: -0.4 ----- L3: -0.2 ----- L4: 0.2 ----- L1-L4: -0.6 Bone mineral density has: decreased -2.2 % since study of: 11.16.2021 Bone mineral density about the R hip (g/cm2): 0.566 Bone mineral density about the L hip (g/cm2): 0.586 T Score values are as follows: -----R Neck: -3.0 -----L Neck: -3.1 -----R Total: -3.5 -----L Total: -3.3 Z Score values are as follows: -----R Neck: -0.9 -----L Neck: -1.1 -----R Total: -1.6 -----L Total: -1.5 Bone mineral density has: increased 3.0 % since study of: 4.26.2021 FRAX%s: The graph provided illustrates a 17.6% chance for a major osteoporotic fx and a 7.0% chance f or the hips probability for fx in 10 years time. IMPRESSION: Osteoporosis (T Score less than -2.5). There is increased fracture risk and therapy is usually indicated based on age. Re-Screen 1-2 years. NOTE: T-SCORE=SD OF THE YOUNG ADULT MEAN.
== END | disposition home or self-care (01) ==
LOC: RADBDWWP 14:46
PROVIDERS: ATTEND Internal Medicine
DX: M81.0 Age-related osteoporosis without current pathological fracture (principal); N95.8 Other specified menopausal and perimenopausal disorders; M85.88 Other specified disorders of bone density and structure, other site
CPT/HCPCS: 77080

== ENCOUNTER → 2024-04-12 | Outpatient (CLI) | payer MEDICARE ==
--- NOTE | 2024-04-22 08:42 | MM ---
Reason for Exam: Screening (asymptomatic). Last screening mammogram was performed 12 month(s) ago. Patient History: Menarche at age 14. First Full-Term at age 29. Hysterectomy at age 43. Postmenopausal. Hormonal Contraceptives for 5 years from age 22 until age 28. Risk Values: Wandy 5 year model risk: 2.0%. NCI Lifetime model risk: 5.1%. Prior Study Comparison: 06/25/2018 Bilateral Screening Mammogram, [facility]. 11/16/2021 Bilateral Screening Mammogram, [facility]. 04/05/2023 Bilateral MG 3D screening mammo w/cad, [facility]. Tissue Density: The breasts are heterogeneously dense, which may obscure small masses. Findings: Analyzed By CAD. Right breast: There is no suspicious group of microcalcifications or new suspicious mass. Left breast: There is no suspicious group of microcalcifications or new suspicious mass. Overall Assessment: Negative, BI-RAD 1 Management: Screening Mammogram of both breasts in [address] [facility] will attempt to contact patient to return for supplemental views and ultrasound if indicated. Patient should continue monthly self-breast exams. A clinical breast exam by your physician is recommended on an annual basis. This exam should not preclude additional follow-up of suspicious palpable abnormalities. Note on Wandy scores and lifetime risk: 1. A Wandy score greater than 3% is considered moderate risk. If this is the case, consider specialist referral to assess eligibility for a risk reducing agent. 2. If overall lifetime risk for the development of breast cancer is 20% or higher, the patient may qualify for future screening with alternating mammogram and breast MRI. [facility], , 04/22/2024 8:39 AM. Electronically signed and approved by: Lei Drummond DO
== END | disposition home or self-care (01) ==
LOC: RADMAMWWP 13:01
PROVIDERS: ATTEND Internal Medicine
CPT/HCPCS: 77063; 77067

== ENCOUNTER → 2024-09-24 | Day surgery (SDC) | payer MEDICARE ==
[~2024-09-24] MED LIST changes: -LACTATED RINGERS 1,000 ML IV SCH; +LIDOCAINE 1% INJ 10MG/ML (20 ML MDV) ONE; +PROPOFOL 10 MG/ML 20 ML VIAL IV ONE
[2024-09-24] MEDS: IV FLUID CONTINUATION 1,000 ML IV ONE ×2 (10:08→11:19)
[2024-09-24 10:12] VITALS: TEMP 97.4
[2024-09-24] MEDS: LACTATED RINGERS 1,000 ML IV SCH (10:16)
--- NOTE | 2024-09-24 11:46 | P.PCN ---
Date of Procedure: 09/24/24 Procedure(s) Performed: Brief history: Patient is a pleasant 74-year-old white female scheduled for an elective upper endoscopy as well as colonoscopy as a part of evaluation of right-sided abdominal pain and screening for history of colon polyps Procedure performed: Esophagogastroduodenoscopy with biopsy Colonoscopy with snare polypectomy Preoperative diagnosis: Right-sided abdominal pain Screening for history of colon polyps Anesthesia: MAC Procedure: After informed consent was obtained from the patient was brought into the endoscopy unit and IV sedation was administered by anesthesia under continuous monitoring. Initially upper endoscopy was done. The Olympus GF 160 video endoscope was inserted inserted into the mouth and esophagus intubated without any difficulty and was gradually advanced into the stomach and duodenum and carefully examined. The bulb and second part of the duodenum appeared normal. The scope was then withdrawn into the stomach adequately insufflated with air and upon careful examination the antrum and body, had diffuse gastritis and biopsies were done from this area. Mucosa of the cardia and fundus appeared normal. The scope was then withdrawn into the esophagus. The GE junction was located at 40 cm to the incisors. It appeared regular with no erythema erosions or ulcerations. Rest of the esophagus appeared normal. Patient tolerated the procedure well. At this time the patient continued to remain sedation. Initial digital rectal examination was normal. Olympus CF 160 video colonoscope was then inserted into the rectum and gradually advanced to the cecum without any difficulty. Careful examination was performed as the scope was gradually being withdrawn. The prep was excellent. The cecum, ascending colon, normal. The transverse colon there was a 5 mm sessile polyp removed by cold snare polypectomy. Rest of the transverse colon, descending colon, sigmoid colon and rectum appeared normal. Moderate left-sided diverticulosis seen. In the distal rectum there is a 5 mm sessile polyp removed by cold snare polypectomy. Retroflexion was performed in the rectum and no lesions were noted. Patient tolerated the procedure well. Impression: 1. Upper endoscopy revealed diffuse gastritis involving the body and antrum of the stomach status post biopsies but no evidence of peptic ulcer disease 2. Colonoscopy revealed a 5 mm transverse colon polyp and 5 mm distal rectal polyp status post cold snare polypectomy and moderate sigmoid diverticulosis Recommendations: Findings of this examination were discussed with the patient as well as her. She was advised to follow-up with the biopsy results. If the biopsy reveals adenoma she can have repeat colonoscopy in 5 years.
[2024-09-24 12:05] VITALS: BP 128/75; PULSE 76; RESP 16
== END ==
LOC: ORWHC2ENDO 09:11
PROVIDERS: ATTEND Internal Medicine Gastroenterology
DX: Z12.11 Encounter for screening for malignant neoplasm of colon (principal); D12.3 Benign neoplasm of transverse colon; K62.1 Rectal polyp; K57.30 Diverticulosis of large intestine without perforation or abscess without bleeding; K29.50 Unspecified chronic gastritis without bleeding; I10 Essential (primary) hypertension; E78.5 Hyperlipidemia, unspecified; J44.9 Chronic obstructive pulmonary disease, unspecified; G43.909 Migraine, unspecified, not intractable, without status migrainosus; K21.9 Gastro-esophageal reflux disease without esophagitis; R16.0 Hepatomegaly, not elsewhere classified; Z91.89 Other specified personal risk factors, not elsewhere classified; Z79.899 Other long term (current) drug therapy; Z87.891 Personal history of nicotine dependence; Z86.0100 Personal history of colon polyps, unspecified; Z88.8 Allergy status to other drugs, medicaments and biological substances
CPT/HCPCS: 45385; 43239; J2003; J2704; 88305

== ENCOUNTER → 2024-11-15 | Outpatient (CLI) | payer MEDICARE ==
--- NOTE | 2024-11-15 16:21 | CTL ---
EXAMINATION TYPE: CT Low Dose Lung DATE OF EXAM: 11/15/2024 3:57 PM COMPARISON: None. CLINICAL INDICATION: Female, 74 years old with history of Z12.2, F17.210; Lung screening for nicotine dependence of 1/2ppd x56 years, quit smoking a year ago, hx of COPD., history of tobacco use. TECHNIQUE: Multiple axial non-contrast scans were obtained from approximately the lung apices through the upper abdomen. Coronal and sagittal reformatted images were obtained. Low dose technique was uti lized. MIP were created on a separate workstation and submitted for review. CT DLP: 55 mGycm, Automated exposure control for dose reduction was used. CT Contrast: Contrast used: None Oral contrast used: None FINDINGS: Lack of intravenous contrast and low dose technique limits the evaluation of the vascular and soft ti ssue structures. LUNGS: No evidence of pulmonary fibrosis. No evidence of focal consolidation, pneumothorax or pleural effusion. Centrilobular emphysema changes. Nodules: RUL: None. RML: None. RLL: None. NAIMA: None. LLL: None. AIRWAY: Patent and unremarkable. HEART: Size within normal limits. Moderate coronary artery calcifications present. MEDIASTINUM: No gross evidence of adenopathy. VASCULATURE: No aortic aneurysm. MUSCULOSKELETAL: No acute osseous abnormalities SOFT TISSUES/LYMPH NODES: Unremarkable. LOWER NECK: No significant findings. UPPER ABDOMEN: The gallbladder surgically absent. IMPRESSION: 1. No clinically significant pulmonary nodules. 2. Mild emphysema. CT LUNG RAD AND CT CHEST RECOMMENDATION: Lung-Rad 1 Negative: Continue annual screening with LDCT in 12 months. S Modifier (other clinically significant findings): None Recommend smoking cessation (if current smoker), or continuation of smoking cessation (if prior smoke r). Annual screening for lung cancer with low-dose computed tomography is recommended in adults ages 55 to 77 years who have a 30 pack-year smoking history and currently smoke or have quit within the pa st 15 years. Screening should be discontinued once a person has not smoked for 15 years or develops a health problem that substantially limits life expectancy or the ability or willingness to have curat stefania lung surgery. Lung rads 2021 [email or web address] [email or web address], , 11/15/2024 4:18 PM
== END | disposition home or self-care (01) ==
LOC: RADCTMAIN 15:07
PROVIDERS: ATTEND Internal Medicine
DX: Z12.2 Encounter for screening for malignant neoplasm of respiratory organs (principal); F17.210 Nicotine dependence, cigarettes, uncomplicated; J43.2 Centrilobular emphysema
CPT/HCPCS: 71271